=== PATIENT | female | born 1955 | race Caucasian/White ===

== ENCOUNTER 2019-08-10 11:47 | Outpatient (CLI) | payer OTHER, SELFPAY ==
[2019-08-10 12:22] LABS: Basophils Percent Auto 0.4 % (0.2-1.2); Eosinophils Absolute Auto 0.3 K/mm3 (0-0.3); Hematocrit 38.1 % (37.0-47.0); Hemoglobin 12.1 g/dL (12.0-15.0); Immature Granulocyte Absolute 0.01 K/mm3 (0.00-0.031); Immature Granulocyte Percent A 0.1 % (0-0.5); Lymphocytes Absolute Auto 2.04 K/mm3 (0.9-3.2); Lymphocytes Percent Auto 28.4 % (18.3-44.2); Mean Corpuscular HGB Conc 31.8 g/dl (32-36); Mean Corpuscular Hemoglobin 29.5 pg (26-34); Mean Corpuscular Volume 92.9 fl (80-100); Mean Platelet Volume 9.7 fl (7.4-10.4); Monocytes Absolute Auto 0.4 K/mm3 (0.1-0.6); Neutrophils Absolute Auto 4.4 K/mm3 (1.3-6.7); Neutrophils Percent Auto 61.1 % (45.5-73.1); Platelet Count Result 236 k/mm3 (150-375); Red Cell Distribution Width 13.2 % (11.5-14.5); White Blood Count 7.2 K/mm3 (4.5-10.0)
[2019-08-10 12:26] LABS: Blood Urea Nitrogen 15 mg/dL (8-26); Carbon Dioxide 29 mmol/L (22-30); Chloride 101 mmol/L (98-109); Estimated Glomerular Filt Rate > 60; Glucose 103 mg/dL (70-105); Potassium 4.1 mmol/L (3.5-4.9); Sodium 141 mmol/L (138-146)
[2019-08-10 13:01] LABS: Alanine Aminotransferase 11 U/L (4-35); Albumin Level 4.2 g/dL (3.5-5.1); Alkaline Phosphatase 63 U/L (38-126); Aspartate Amino Transferase 23 U/L (14-36); Bilirubin,Total 0.3 mg/dL (0.2-1.3); Blood Urea Nitrogen 15 mg/dL (7-17); Calcium 10.1 mg/dL (8.4-10.2); Carbon Dioxide 31 mmol/L (22-30); Chloride 103 mmol/L (98-107); Estimated Glomerular Filt Rate > 60; Glucose 100 mg/dL (65-105); Potassium 4.3 mmol/L (3.4-5.0); Sodium 137 mmol/L (137-145)
[2019-08-14 12:57] LABS: CA 27.29 18 U/mL (<38)
== END 2019-08-10 11:48 | disposition home or self-care (01) ==
LOC: ANHLAB 11:50
PROVIDERS: PCP Internal Medicine; Visit Provider Internal Medicine Hematology & Oncology
DX: C50.911 Malignant neoplasm of unspecified site of right female breast (principal); Z17.1 Estrogen receptor negative status [ER-]
CPT/HCPCS: 36415; 80048; 80053; 85025; 86300

== ENCOUNTER 2020-02-01 14:37 | Outpatient (CLI) | payer OTHER, SELFPAY ==
--- NOTE | ~2020-02-01 | MM_ITS ---
EXAMINATION: MM screening jonah LT w sheila HISTORY: Screening left mammogram, history of right mastectomy TECHNIQUE: Craniocaudal and mediolateral oblique 3-D tomosynthesis images were obtained and synthetic 2-D images were generated. CAD analysis was submitted and interpreted. COMPARISON: 01/30/2019, 01/28/2018, 01/22/2017 BREAST PARENCHYMAL COMPOSITION: The breasts are almost entirely fatty. FINDINGS: There is no evidence of suspicious mass, calcification, or architectural distortion to sugg est malignancy. There has been no suspicious interval change. IMPRESSION: 1. No mammographic evidence of malignancy. 2. Recommend routine screening mammography in one year. BI-RADS Category 1: Negative Reviewed, dictated and finalized at location A.
== END 2020-02-01 14:38 | disposition home or self-care (01) ==
LOC: ANHIMG 14:43
PROVIDERS: PCP Internal Medicine; Visit Provider Internal Medicine Hematology & Oncology
DX: Z12.31 Encounter for screening mammogram for malignant neoplasm of breast (principal)
CPT/HCPCS: 77063; 77067

== ENCOUNTER 2020-02-27 13:20 | Outpatient (CLI) | payer OTHER, SELFPAY ==
[2020-02-27 13:42] LABS: Basophils Absolute Auto 0.1 K/mm3 (0.0-0.1); Basophils Percent Auto 0.6 % (0.2-1.2); Eosinophils Absolute Auto 0.2 K/mm3 (0-0.3); Eosinophils Percent Auto 2.1 % (0-4.4); Hematocrit 36.3 % (37.0-47.0); Hemoglobin 11.4 g/dL (12.0-15.0); Immature Granulocyte Absolute 0.02 K/mm3 (0.00-0.031); Immature Granulocyte Percent A 0.2 % (0-0.5); Lymphocytes Absolute Auto 1.95 K/mm3 (0.9-3.2); Lymphocytes Percent Auto 23.6 % (18.3-44.2); Mean Corpuscular HGB Conc 31.4 g/dl (32-36); Mean Corpuscular Hemoglobin 30.3 pg (26-34); Mean Corpuscular Volume 96.5 fl (80-100); Mean Platelet Volume 9.4 fl (7.4-10.4); Monocytes Absolute Auto 0.4 K/mm3 (0.1-0.6); Monocytes Percent Auto 4.7 % (2.6-8.5); Neutrophils Absolute Auto 5.7 K/mm3 (1.3-6.7); Neutrophils Percent Auto 68.8 % (45.5-73.1); Platelet Count Result 251 k/mm3 (150-375); Red Blood Count 3.76 M/mm3 (4.2-5.4); Red Cell Distribution Width 12.9 % (11.5-14.5); White Blood Count 8.3 K/mm3 (4.5-10.0)
[2020-02-27 13:45] LABS: Blood Urea Nitrogen 22 mg/dL (8-26); Carbon Dioxide 28 mmol/L (22-30); Chloride 107 mmol/L (98-109); Estimated Glomerular Filt Rate 50; Glucose 105 mg/dL (70-105); Potassium 4.4 mmol/L (3.5-4.9); Sodium 142 mmol/L (138-146)
[2020-02-27 16:44] LABS: Alanine Aminotransferase 13 U/L (4-35); Alkaline Phosphatase 68 U/L (38-126); Anion Gap 5 mmol/L (8-16); Aspartate Amino Transferase 24 U/L (14-36); Bilirubin,Total 0.3 mg/dL (0.2-1.3); Blood Urea Nitrogen 24 mg/dL (7-17); Calcium 9.5 mg/dL (8.4-10.2); Carbon Dioxide 32 mmol/L (22-30); Chloride 105 mmol/L (98-107); Estimated Glomerular Filt Rate > 60; Glucose 108 mg/dL (65-105); Potassium 4.6 mmol/L (3.4-5.0); Sodium 142 mmol/L (137-145)
== END 2020-02-27 13:21 | disposition home or self-care (01) ==
LOC: ANHLAB 13:21
PROVIDERS: PCP Internal Medicine; Visit Provider Internal Medicine Hematology & Oncology
DX: C50.911 Malignant neoplasm of unspecified site of right female breast (principal); Z17.1 Estrogen receptor negative status [ER-]
CPT/HCPCS: 36415; 80048; 80053; 85025

== ENCOUNTER 2020-04-09 15:57 | Emergency (ER) | payer OTHER, SELFPAY ==
--- NOTE | ~2020-04-09 | XR_ITS ---
EXAMINATION: XR soft tissue neck EXAM DATE: 04/09/2020 17:04 INDICATION: Intermittent foreign body sensation to rt side of throat. TECHNIQUE: Frontal and lateral projections of the neck soft tissue. There is no prior study for com leeon. FINDINGS: Epiglottis is normal in thickness, the airway is unremarkable. No radiopaque foreign sylvia s identified. Thyroid cartilage calcification. Mild right carotid bulb calcification. Aortic arch art erial sclerosis. Pacemaker/AICD leads. Lung apices are clear. There is moderate cervical spondylosis. IMPRESSION: No radiopaque foreign bodies identified. Arterial sclerosis. Reviewed, dictated and finalized at location A. TFED PRESS OPERATOR
[2020-04-09 16:28] VITALS: BP 161/72; PULSE 80; RESP 16; TEMP 36.6; O2SAT 98
--- NOTE | 2020-04-09 16:55 | ED.GENADULT ---
HPI - General Adult General Chief complaint: Unspecified Stated complaint: Sore throat Time Seen by Provider: 04/09/20 16:36 Source: patient and RN notes reviewed Mode of arrival: ambulatory Limitations: no limitations History of Present Illness HPI narrative: Patient presents today complaining of an intermittent foreign body sensation to the right side of her throat x2 to 3 weeks. Denies pain, recent illness, cough, frequent clearing of her throat. States she has seen her doctor for this complaint and was told to take Mucinex and use Flonase. She also increased her water intake. States when she drinks a lot of water the symptoms resolve, but then return sometime later. At times she believes that this is due to congestion in her throat, but she comes to urgent care today because interventions instructed by her doctor were not really helping. She does have history of GERD and was recently instructed to increase her Pepcid from daily to twice daily, which also did not help with her symptoms. History of tonsillectomy. No history of thyroid issues. Denies shortness of breath or difficulty swallowing. MD complaint: FB sensation of throat Related Data Home Medications Medication Instructions Recorded Confirmed albuterol sulfate INHALATION 04/09/20 alendronate mg PO 04/09/20 atorvastatin 04/09/20 carvedilol 04/09/20 famotidine 04/09/20 sacubitril-valsartan [Entresto] 04/09/20 Allergies Allergy/AdvReac Type Severity Reaction Status Date / Time No Known Allergies Allergy Unverified 01/25/15 14:58 Review of Systems Review of Systems: Narrative: CONSTITUTIONAL: Denies body aches, fever, chills, or sweats. EYES: Denies visual changes, redness, or discharge. ENT: Denies rhinorrhea, congestion, sore throat, or otalgia. Throat foreign body sensation CARDIOVASCULAR: Denies chest pain, palpitations, or edema. RESPIRATORY: Denies cough or dyspnea. GASTROINTESTINAL: Denies abdominal pain, nausea, vomiting, or diarrhea. GENITOURINARY: Denies dysuria or hematuria. SKIN: Denies rash, itching, or wounds. MUSCULOSKELETAL: Denies back pain, joint pain, or myalgia. NEUROLOGIC: Denies headache, numbness, tingling, or weakness. PSYCH: Denies depression or anxiety. [facility] Past Medical History Medical History (Updated 04/09/20 @ 17:25 by Donna Painter, [facility], ) Congestive heart failure GERD (gastroesophageal reflux disease) Hypercholesterolemia Osteoporosis Family History Family History (Updated 11/01/15 @ 23:19 by DOCTOR UNKNOWN) Mother Hypertension Family history of diabetes mellitus in first degree relative Father Family history of diabetes mellitus in first degree relative Family history of coronary artery disease Other Family history of lung cancer Social History Social History Smoking end date: 04/05/09 Alcohol intake: current Comments At time of signature, I have reviewed and agree with nursing past medical, surgical, social and family history unless otherwise noted. Please see nursing chart for further information. There is no relevant family history pertinent to the presenting complaint Exam Narrative: Exam Narrative: GENERAL: Well-appearing, well-nourished, and in no acute distress. HEAD: Normocephalic, atraumatic. EYES: EOMI. No redness or drainage. Conjunctivae normal. ENT: Mucous membranes pink and moist. Nares clear. No rhinorrhea. TMs normal bilaterally. Throat normal. Moderate amount of thick postnasal drainage. Uvula midline. NECK: Normal AROM. Supple. No lymphadenopathy. Throat is nontender. Patient localizes foreign body sensation in the right tonsillar area CHEST: No respiratory distress. Clear to auscultation. HEART: Regular rate and rhythm. No murmur appreciated. Normal peripheral pulses. EXTREMITIES: Normal range of motion. No edema. SKIN: Warm, dry, no rash. Capillary refill normal. Normal skin turgor. NEURO: No focal deficits. Alert and oriented x3. Gait stea
== END 2020-04-09 17:28 | disposition home or self-care (01) ==
PROVIDERS: Emergency Provider Nurse Practitioner
DX: R09.89 Other specified symptoms and signs involving the circulatory and respiratory systems (principal); I11.0 Hypertensive heart disease with heart failure; I50.9 Heart failure, unspecified; K21.9 Gastro-esophageal reflux disease without esophagitis; E78.00 Pure hypercholesterolemia, unspecified; M81.0 Age-related osteoporosis without current pathological fracture; Z95.0 Presence of cardiac pacemaker
CPT/HCPCS: 70360; 99213; G0463

== ENCOUNTER 2020-08-22 14:40 | Outpatient (CLI) | payer OTHER, SELFPAY ==
[2020-08-22 14:59] LABS: Basophils Percent Auto 0.2 % (0.2-1.2); Eosinophils Percent Auto 0.2 % (0-4.4); Hematocrit 37.8 % (37.0-47.0); Hemoglobin 12.3 g/dL (12.0-15.0); Immature Granulocyte Absolute 0.03 K/mm3 (0.00-0.031); Immature Granulocyte Percent A 0.3 % (0-0.5); Lymphocytes Absolute Auto 1.49 K/mm3 (0.9-3.2); Lymphocytes Percent Auto 15.7 % (18.3-44.2); Mean Corpuscular HGB Conc 32.5 g/dl (32-36); Mean Corpuscular Hemoglobin 30.5 pg (26-34); Mean Corpuscular Volume 93.8 fl (80-100); Mean Platelet Volume 9.7 fl (7.4-10.4); Monocytes Absolute Auto 0.4 K/mm3 (0.1-0.6); Monocytes Percent Auto 3.8 % (2.6-8.5); Neutrophils Absolute Auto 7.6 K/mm3 (1.3-6.7); Neutrophils Percent Auto 79.8 % (45.5-73.1); Platelet Count Result 230 k/mm3 (150-375); Red Blood Count 4.03 M/mm3 (4.2-5.4); Red Cell Distribution Width 12.7 % (11.5-14.5); White Blood Count 9.5 K/mm3 (4.5-10.0)
[2020-08-22 17:25] LABS: Alanine Aminotransferase 12 U/L (4-35); Albumin Level 4.3 g/dL (3.5-5.1); Alkaline Phosphatase 63 U/L (38-126); Anion Gap 8 mmol/L (8-16); Aspartate Amino Transferase 24 U/L (14-36); Bilirubin,Total 0.3 mg/dL (0.2-1.3); Calcium 10.1 mg/dL (8.4-10.2); Carbon Dioxide 26 mmol/L (22-30); Chloride 105 mmol/L (98-107); Estimated Glomerular Filt Rate > 60; Glucose 109 mg/dL (65-105); Potassium 4.2 mmol/L (3.4-5.0); Sodium 139 mmol/L (137-145)
[2020-08-22 17:40] LABS: Blood Urea Nitrogen 21 mg/dL (7-17)
[2020-08-25 07:16] LABS: CA 15-3 13 U/mL (<32)
== END 2020-08-22 14:41 | disposition home or self-care (01) ==
LOC: ANHLAB 14:46
PROVIDERS: Visit Provider Internal Medicine Hematology & Oncology
DX: C50.911 Malignant neoplasm of unspecified site of right female breast (principal); Z17.1 Estrogen receptor negative status [ER-]
CPT/HCPCS: 36415; 80053; 85025; 86300

== ENCOUNTER 2021-02-03 09:19 | Outpatient (CLI) | payer OTHER, SELFPAY ==
--- NOTE | ~2021-02-03 | MM_ITS ---
EXAMINATION: MM screening jonah LT w sheila HISTORY: Screening TECHNIQUE: Craniocaudal and mediolateral oblique 3-D tomosynthesis images were obtained and synthetic 2-D images were generated. CAD analysis was submitted and interpreted. COMPARISON: Comparison to multiple prior studies sequentially, with oldest reviewed study dated 04/2014. BREAST PARENCHYMAL COMPOSITION: There are scattered areas of fibroglandular density. FINDINGS: There is a battery pack overlying the left breast, likely pacemaker. There is no evidence o f suspicious mass, calcification, or architectural distortion to suggest malignancy in the left breas t. There has been no suspicious interval change. IMPRESSION: 1. No mammographic evidence of malignancy. 2. Recommend routine screening mammography in one year. BI-RADS Category 1: Negative Reviewed, dictated and finalized at location A.
== END 2021-02-03 09:20 | disposition home or self-care (01) ==
LOC: ANHIMG 09:21
PROVIDERS: PCP Internal Medicine; Visit Provider Internal Medicine Hematology & Oncology
DX: Z12.31 Encounter for screening mammogram for malignant neoplasm of breast (principal)
CPT/HCPCS: 77063; 77067

== ENCOUNTER 2021-02-24 10:04 | Outpatient (CLI) | payer OTHER, SELFPAY ==
[2021-02-24 10:35] LABS: Basophils Percent Auto 0.5 % (0.2-1.2); Eosinophils Absolute Auto 0.2 K/mm3 (0-0.3); Eosinophils Percent Auto 2.8 % (0-4.4); Hematocrit 37.1 % (37.0-47.0); Hemoglobin 11.9 g/dL (12.0-15.0); Immature Granulocyte Absolute 0.02 K/mm3 (0.00-0.031); Immature Granulocyte Percent A 0.3 % (0-0.5); Lymphocytes Absolute Auto 1.54 K/mm3 (0.9-3.2); Lymphocytes Percent Auto 26.5 % (18.3-44.2); Mean Corpuscular HGB Conc 32.1 g/dl (32-36); Mean Corpuscular Hemoglobin 30.5 pg (26-34); Mean Corpuscular Volume 95.1 fl (80-100); Mean Platelet Volume 9.5 fl (7.4-10.4); Monocytes Absolute Auto 0.4 K/mm3 (0.1-0.6); Neutrophils Absolute Auto 3.7 K/mm3 (1.3-6.7); Neutrophils Percent Auto 63.9 % (45.5-73.1); Platelet Count Result 221 k/mm3 (150-375); Red Cell Distribution Width 12.3 % (11.5-14.5); White Blood Count 5.8 K/mm3 (4.5-10.0)
[2021-02-24 16:46] LABS: Alanine Aminotransferase 14 U/L (4-35); Albumin Level 3.9 g/dL (3.5-5.1); Alkaline Phosphatase 70 U/L (38-126); Anion Gap 3 mmol/L (8-16); Aspartate Amino Transferase 23 U/L (14-36); Bilirubin,Total 0.4 mg/dL (0.2-1.3); Blood Urea Nitrogen 15 mg/dL (7-17); Calcium 9.5 mg/dL (8.4-10.2); Carbon Dioxide 29 mmol/L (22-30); Chloride 103 mmol/L (98-107); Estimated Glomerular Filt Rate > 60; Glucose 109 mg/dL (65-110); Sodium 135 mmol/L (137-145)
[2021-02-27 07:50] LABS: CA 15-3 13 U/mL (<32)
== END 2021-02-24 10:05 | disposition home or self-care (01) ==
PROVIDERS: PCP Internal Medicine; Visit Provider Internal Medicine Hematology & Oncology
DX: C50.911 Malignant neoplasm of unspecified site of right female breast (principal); Z17.1 Estrogen receptor negative status [ER-]
CPT/HCPCS: 36415; 80053; 85025; 86300

== ENCOUNTER 2021-10-20 13:03 | Outpatient (CLI) | payer OTHER, SELFPAY ==
[2021-10-20 13:25] LABS: Basophils Percent Auto 0.5 % (0.2-1.2); Eosinophils Absolute Auto 0.4 K/mm3 (0-0.3); Eosinophils Percent Auto 4.5 % (0-4.4); Hematocrit 38.3 % (37.0-47.0); Hemoglobin 11.9 g/dL (12.0-15.0); Immature Granulocyte Absolute 0.01 K/mm3 (0.00-0.031); Immature Granulocyte Percent A 0.1 % (0-0.5); Lymphocytes Absolute Auto 1.73 K/mm3 (0.9-3.2); Mean Corpuscular HGB Conc 31.1 g/dl (32-36); Mean Corpuscular Hemoglobin 30.3 pg (26-34); Mean Corpuscular Volume 97.5 fl (80-100); Mean Platelet Volume 10.3 fl (7.4-10.4); Monocytes Absolute Auto 0.5 K/mm3 (0.1-0.6); Monocytes Percent Auto 6.1 % (2.6-8.5); Neutrophils Absolute Auto 5.6 K/mm3 (1.3-6.7); Neutrophils Percent Auto 67.8 % (45.5-73.1); Platelet Count Result 243 k/mm3 (150-375); Red Blood Count 3.93 M/mm3 (4.2-5.4); Red Cell Distribution Width 12.1 % (11.5-14.5); White Blood Count 8.2 K/mm3 (4.5-10.0)
[2021-10-20 14:29] LABS: Alanine Aminotransferase 16 U/L (6-35); Albumin Level 3.9 g/dL (3.5-5.1); Alkaline Phosphatase 83 U/L (38-126); Anion Gap 5 mmol/L (8-16); Aspartate Amino Transferase 24 U/L (14-36); Bilirubin,Total 0.4 mg/dL (0.2-1.3); Blood Urea Nitrogen 12 mg/dL (7-17); Calcium 9.4 mg/dL (8.4-10.2); Carbon Dioxide 32 mmol/L (22-30); Chloride 103 mmol/L (98-107); Estimated Glomerular Filt Rate > 60; Glucose 114 mg/dL (65-110); Potassium 3.8 mmol/L (3.4-5.0); Sodium 140 mmol/L (137-145)
[2021-10-24 04:06] LABS: CA 15-3 15 U/mL (<32)
== END 2021-10-20 13:04 | disposition home or self-care (01) ==
LOC: ANHLAB 13:04
PROVIDERS: PCP Internal Medicine; Visit Provider Internal Medicine Hematology & Oncology
DX: C50.911 Malignant neoplasm of unspecified site of right female breast (principal); Z17.1 Estrogen receptor negative status [ER-]
CPT/HCPCS: 36415; 80053; 85025; 86300

== ENCOUNTER 2021-12-22 11:02 | Outpatient (CLI) | payer OTHER, SELFPAY ==
[2021-12-22 11:18] LABS: Basophils Percent Auto 0.6 % (0.2-1.2); Eosinophils Absolute Auto 0.2 K/mm3 (0-0.3); Hematocrit 40.1 % (37.0-47.0); Hemoglobin 12.6 g/dL (12.0-15.0); Immature Granulocyte Absolute 0.01 K/mm3 (0.00-0.031); Immature Granulocyte Percent A 0.1 % (0-0.5); Lymphocytes Absolute Auto 1.89 K/mm3 (0.9-3.2); Lymphocytes Percent Auto 26.6 % (18.3-44.2); Mean Corpuscular HGB Conc 31.4 g/dl (32-36); Mean Corpuscular Hemoglobin 30.4 pg (26-34); Mean Corpuscular Volume 96.9 fl (80-100); Mean Platelet Volume 10.4 fl (7.4-10.4); Monocytes Absolute Auto 0.4 K/mm3 (0.1-0.6); Monocytes Percent Auto 6.1 % (2.6-8.5); Neutrophils Absolute Auto 4.5 K/mm3 (1.3-6.7); Neutrophils Percent Auto 63.6 % (45.5-73.1); Platelet Count Result 233 k/mm3 (150-375); Red Blood Count 4.14 M/mm3 (4.2-5.4); Red Cell Distribution Width 12.6 % (11.5-14.5); White Blood Count 7.1 K/mm3 (4.5-10.0)
[2021-12-22 12:19] LABS: Alanine Aminotransferase 15 U/L (6-35); Albumin Level 4.3 g/dL (3.5-5.1); Alkaline Phosphatase 87 U/L (38-126); Anion Gap 11 mmol/L (8-16); Aspartate Amino Transferase 23 U/L (14-36); Bilirubin,Total 0.3 mg/dL (0.2-1.3); Blood Urea Nitrogen 17 mg/dL (7-17); Calcium 9.4 mg/dL (8.4-10.2); Carbon Dioxide 29 mmol/L (22-30); Chloride 101 mmol/L (98-107); Estimated Glomerular Filt Rate > 60; Glucose 120 mg/dL (65-110); Sodium 141 mmol/L (137-145)
[2021-12-24 19:41] LABS: CA 15-3 14 U/mL (<32)
== END 2021-12-22 11:03 | disposition home or self-care (01) ==
LOC: ANHLAB 11:03
PROVIDERS: PCP Internal Medicine; Visit Provider Internal Medicine Hematology & Oncology
DX: C50.911 Malignant neoplasm of unspecified site of right female breast (principal); Z17.1 Estrogen receptor negative status [ER-]
CPT/HCPCS: 36415; 80053; 85025; 86300

== ENCOUNTER 2022-03-05 08:49 | Outpatient (CLI) | payer OTHER, SELFPAY ==
--- NOTE | ~2022-03-05 | MM_ITS ---
EXAMINATION: MM screening jonah LT w sheila HISTORY: Screening left mammogram, history of right mastectomy TECHNIQUE: Craniocaudal and mediolateral oblique 3-D tomosynthesis images were obtained and synthetic 2-D images were generated. CAD analysis was submitted and interpreted. COMPARISON: 02/03/2021, 02/01/2020, 01/30/2019 BREAST PARENCHYMAL COMPOSITION: There are scattered areas of fibroglandular density. FINDINGS: Two No suspicious mass, calcification, or architectural distortion are identified in either breast to suggest malignancy. There has been no suspicious interval change. IMPRESSION: 1. No mammographic evidence of malignancy. 2. Recommend routine screening mammography in one year. BI-RADS Category 1: Negative Reviewed, dictated and finalized at location A. E SCIENTIST
== END 2022-03-05 08:50 | disposition home or self-care (01) ==
LOC: ANHIMG 08:52
PROVIDERS: PCP Internal Medicine; Visit Provider Internal Medicine Hematology & Oncology
DX: Z12.31 Encounter for screening mammogram for malignant neoplasm of breast (principal)
CPT/HCPCS: 77063; 77067

== ENCOUNTER 2022-12-22 11:31 | Outpatient (CLI) | payer OTHER, SELFPAY ==
[2022-12-22 11:45] LABS: Basophils Percent Auto 0.6 % (0.2-1.2); Eosinophils Absolute Auto 0.1 K/mm3 (0-0.3); Eosinophils Percent Auto 2.1 % (0-4.4); Hematocrit 39.8 % (37.0-47.0); Hemoglobin 12.4 g/dL (12.0-15.0); Immature Granulocyte Absolute 0.01 K/mm3 (0.00-0.031); Immature Granulocyte Percent A 0.2 % (0-0.5); Lymphocytes Absolute Auto 1.38 K/mm3 (0.9-3.2); Lymphocytes Percent Auto 20.8 % (18.3-44.2); Mean Corpuscular HGB Conc 31.2 g/dl (32-36); Mean Corpuscular Hemoglobin 30.6 pg (26-34); Mean Corpuscular Volume 98.3 fl (80-100); Mean Platelet Volume 9.6 fl (7.4-10.4); Monocytes Absolute Auto 0.4 K/mm3 (0.1-0.6); Monocytes Percent Auto 6.6 % (2.6-8.5); Neutrophils Absolute Auto 4.6 K/mm3 (1.3-6.7); Neutrophils Percent Auto 69.7 % (45.5-73.1); Platelet Count Result 242 k/mm3 (150-375); Red Blood Count 4.05 M/mm3 (4.2-5.4); Red Cell Distribution Width 12.5 % (11.5-14.5); White Blood Count 6.6 K/mm3 (4.5-10.0)
[2022-12-22 12:29] LABS: Alanine Aminotransferase 17 U/L (6-35); Albumin Level 4.4 g/dL (3.5-5.1); Alkaline Phosphatase 68 U/L (38-126); Anion Gap 6 mmol/L (8-16); Aspartate Amino Transferase 23 U/L (14-36); Bilirubin,Total 0.5 mg/dL (0.2-1.3); Blood Urea Nitrogen 31 mg/dL (7-17); Calcium 9.6 mg/dL (8.4-10.2); Carbon Dioxide 30 mmol/L (22-30); Chloride 102 mmol/L (98-107); Estimated Glomerular Filt Rate 55; Glucose 93 mg/dL (65-110); Potassium 4.5 mmol/L (3.4-5.0); Sodium 138 mmol/L (137-145)
[2022-12-28 15:25] LABS: CA 15-3 16 U/mL (<32)
== END 2022-12-22 11:32 | disposition home or self-care (01) ==
LOC: ANHLAB 11:33
PROVIDERS: PCP Internal Medicine; Visit Provider Internal Medicine Hematology & Oncology
DX: C50.911 Malignant neoplasm of unspecified site of right female breast (principal); Z17.1 Estrogen receptor negative status [ER-]
CPT/HCPCS: 36415; 80053; 85025; 86300

== ENCOUNTER 2023-04-22 08:28 | Outpatient (CLI) | payer OTHER, SELFPAY ==
--- NOTE | ~2023-04-22 | MM_ITS ---
EXAMINATION: MM screening jonah LT w sheila HISTORY: Screening TECHNIQUE: Craniocaudal and mediolateral oblique 3-D tomosynthesis images were obtained and synthetic 2-D images were generated. CAD analysis was submitted and interpreted. COMPARISON: Comparison to multiple prior studies sequentially, with oldest reviewed study dated 01/04. BREAST PARENCHYMAL COMPOSITION: Breast composed of scattered areas of fibroglandular density FINDINGS: There is no evidence of suspicious mass, calcification, or architectural distortion to sugg est malignancy in either breast. There has been no suspicious interval change. IMPRESSION: 1. No mammographic evidence of malignancy. 2. Recommend routine screening mammography in one year. BI-RADS Category 1: Negative Reviewed, dictated and finalized at location A. ER IN [facility]
== END 2023-04-22 08:29 | disposition home or self-care (01) ==
PROVIDERS: PCP Internal Medicine; Visit Provider Internal Medicine Hematology & Oncology
DX: Z12.31 Encounter for screening mammogram for malignant neoplasm of breast (principal)
CPT/HCPCS: 77063; 77067

== ENCOUNTER 2023-12-27 13:39 | Outpatient (CLI) | payer OTHER, SELFPAY ==
[2023-12-27 13:55] LABS: Basophils Percent Auto 0.3 % (0.2-1.2); Eosinophils Absolute Auto 0.2 K/mm3 (0-0.3); Eosinophils Percent Auto 2.2 % (0-4.4); Hematocrit 37.5 % (37.0-47.0); Hemoglobin 11.6 g/dL (12.0-15.0); Immature Granulocyte Absolute 0.01 K/mm3 (0.00-0.031); Immature Granulocyte Percent A 0.1 % (0-0.5); Lymphocytes Absolute Auto 1.69 K/mm3 (0.9-3.2); Lymphocytes Percent Auto 22.1 % (18.3-44.2); Mean Corpuscular HGB Conc 30.9 g/dl (32-36); Mean Corpuscular Hemoglobin 30.6 pg (26-34); Mean Corpuscular Volume 98.9 fl (80-100); Mean Platelet Volume 9.6 fl (7.4-10.4); Monocytes Absolute Auto 0.5 K/mm3 (0.1-0.6); Monocytes Percent Auto 6.4 % (2.6-8.5); Neutrophils Absolute Auto 5.3 K/mm3 (1.3-6.7); Neutrophils Percent Auto 68.9 % (45.5-73.1); Platelet Count Result 216 k/mm3 (150-375); Red Blood Count 3.79 M/mm3 (4.2-5.4); Red Cell Distribution Width 12.6 % (11.5-14.5); White Blood Count 7.6 K/mm3 (4.5-10.0)
[2023-12-27 16:47] LABS: Alanine Aminotransferase 13 U/L (6-35); Albumin Level 3.9 g/dL (3.5-5.1); Alkaline Phosphatase 74 U/L (38-126); Anion Gap 7 mmol/L (4-12); Aspartate Amino Transferase 22 U/L (14-36); Bilirubin,Total 0.2 mg/dL (0.2-1.3); Blood Urea Nitrogen 20 mg/dL (7-17); Calcium 9.7 mg/dL (8.4-10.2); Carbon Dioxide 29 mmol/L (22-30); Chloride 104 mmol/L (98-107); Estimated Glomerular Filt Rate > 60; Glucose 105 mg/dL (65-110); Potassium 4.1 mmol/L (3.4-5.0); Sodium 140 mmol/L (137-145)
[2023-12-29 03:24] LABS: CA 15-3 15 U/mL (<32)
== END 2023-12-27 13:40 | disposition home or self-care (01) ==
LOC: ANHLAB 13:40
PROVIDERS: PCP Internal Medicine; Visit Provider Internal Medicine Hematology & Oncology
DX: C50.911 Malignant neoplasm of unspecified site of right female breast (principal); Z17.1 Estrogen receptor negative status [ER-]
CPT/HCPCS: 36415; 80053; 85025; 86300

== ENCOUNTER 2024-05-18 09:53 | Outpatient (CLI) | payer OTHER, SELFPAY ==
--- NOTE | ~2024-05-18 | MM_ITS ---
EXAMINATION: MM screening jonah BI w sheila HISTORY: Screening. Status post right mastectomy for breast cancer. TECHNIQUE: Craniocaudal and mediolateral oblique 3-D tomosynthesis images were obtained and synthetic 2-D images were generated. CAD analysis was submitted and interpreted. COMPARISON: Comparison to multiple prior studies sequentially, with oldest reviewed study dated 01/04. BREAST PARENCHYMAL COMPOSITION: Not dense: There are scattered areas of fibroglandular density. FINDINGS: There is no evidence of suspicious mass, calcification, or architectural distortion to sugg est malignancy in the left breast. There has been no suspicious interval change. IMPRESSION: 1. No mammographic evidence of malignancy. 2. Recommend routine screening mammography in one year. BI-RADS Category 1: Negative Reviewed, dictated and finalized at location [] BILL OPERATOR
--- OUTSIDE RECORDS SUMMARY | 2024-05-18 10:17 | XMS_ITS | Encounter Summary ---
Author Organization [facility] Care Team Providers Care Health Informatics Advisor Name Role Phone Naila Person DO Primary Care Provider [phone] Sania Lopez DO Unavailable [phone] Sultan Antwan Rudd MD Unavailable [phone] Sultan Antwan Rudd MD Unavailable [phone] Mark Pierre MD Unavailable [phone] Encounter Details Date Type Department Care Team (Latest Contact Info) Description 12/28/2015 Orders Only [facility]INCON[facility] ProviderAmy MD [address] [place] [id number] Social History Tobacco Use Types Packs/Day Years Used Date Smoking Tobacco: Never Assessed Comments Unknown Sex and Gender Information Value Date Recorded Sex Assigned at Not on file 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 [facility] Provider Final Res ult * CARDIOLOGY REPORT (01/08/2016 12:00 AM CDT) Anatomical Region Laterality Modality Other Narrative 01/08/2016 12:00 AM CDT Ordered by an unspecified provider. [facility] Provider CV CARDIAC SERVICES PROCE DURES Final Result * CARDIOLOGY REPORT (12/30/2015 12:00 AM CDT) Anatomical Region Laterality Modality Other Narrative 12/30/2015 12:00 AM CDT Ordered by an unspecified provider. [facility] Provider CV CARDIAC SERVICES PROCE DURES Final Result * CARDIOLOGY REPORT (12/30/2015 12:00 AM CDT) Anatomical Region Laterality Modality Other Narrative 12/30/2015 12:00 AM CDT Ordered by an unspecified provider. 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 [address] [place] [address] [address] Structural Engineering Technician Cardiovascular Disease 11/10/18 11/10/18 Sultan Antwan Rudd MD [address] [facility] [address] [place] [address] [address] Structural Engineering Technician Cardiovascular Disease 11/15/18 Mark Pierre MD [address] [facility] [address] [place] [address] [address] Medical Oncologist/Accreditation Manager Medical Oncology 03/08/19 documented as of this encounter
--- OUTSIDE RECORDS SUMMARY | 2024-05-18 10:17 | XMS_ITS | Referral Summary ---
Author Organization [facility] Address [address] [place] [address] Care Team Providers Care Administrative Program Specialist Name Role Phone Naila Person DO Primary Care Provider [phone] Sania Lopez DO Unavailable [phone] Sultan Antwan Rudd MD Unavailable [phone] Mark Pierre MD Unavailable [phone] Encounters Date Type Department Care Team Description 05/15/2024 9:55 AM GARDE MANAGER Lab [facility] Lab [address] [place] [address] Hyperlipidemia, unspecified hyperlipidemia type 05/15/2024 11:00 AM GARDE MANAGER Office Visit [facility] Hand Surgery [address] [facility] [address] [place] [phone] Joseph Troy MD Right carpal tunnel syndrome (Primary Dx) 05/12/2024 7:30 AM GARDE MANAGER Ancillary Procedure [facility] Cardiology [address] [facility] [address] [place] [phone] Dilated cardiomyopathy (CMS/HCC) (HCC); LBBB (left bundle branch block); Cardiac resynchronization therapy defibrillator (AGENTS' RECORDS CLERK-D) in place 05/08/2024 Telephone [facility] Orthopedics and Sports Medicine [address] [facility] [address] [place] [address] Joseph Troy MD work note 05/02/2024 8:00 AM GARDE MANAGER - 05/02/2024 8:30 AM GARDE MANAGER Surgery [facility] OR [address] [place] [phone] Joseph Troy MD RIGHT CARPAL TUNNEL RELEASE 05/02/2024 5:46 AM GARDE MANAGER - 05/02/2024 8:40 AM GARDE MANAGER Hospital Encounter [facility] OR [address] [place] [phone] Joseph Troy MD Right carpal tunnel syndrome [G56.01] (Primary Dx) Discharge Disposition: Discharge to home or self care 04/27/2024 Telephone [facility] Cardiology [address] [place] [phone] Sultan Antwan Rudd MD 04/26/2024 Telephone [facility] Hand Surgery [facility] [address] [place] [address] Joseph Troy MD 04/19/2024 12:20 PM GARDE MANAGER Ancillary Procedure [facility] Hand Surgery [address] [place] [address] [place] [phone] 04/19/2024 12:30 PM GARDE MANAGER Office Visit [facility] Hand Surgery [address] [place] [phone] Joseph Troy MD Right hand pain (Primary Dx); Right carpal tunnel syndrome 03/13/2024 10:30 AM GARDE MANAGER Office Visit [facility] Cardiology [address] [place] [phone] Sultan Antwan Rudd MD Nonrheumatic aortic valve stenosis (Primary Dx); Ventricular premature depolarization 02/23/2024 Orders Only [facility] Cardiology [address] [place] [phone] Provider, MD Amy from Last 3 Months Allergies Active Allergy Reactions Criticality Noted Date Comments Nut Flavor Anaphylaxis High 03/24/2018 Peanut Anaphylaxis High 09/15/2018 Medications aspirin 81 mg enteric coated tabletIndications :heart health Take 1 tablet (81 mg total) by mouth diabetes education coordinator before breakfast 03/24/20 16 Active calcium carbonate-vitamin D3 600 mg calcium- 200 unit capsuleIndication s:Hypocalcemia Prevention Take 1 capsule by mouth nightly 03/24/20 16 Active atorvastatin (LIPITOR) 20 mg tabletIndications :hyperlipidemia Take 1 tablet (20 mg total) by mouth nightly 02/05/20 18 Active furosemide (LASIX) 40 mg tabletIndications :Edema Take 1 tablet (40 mg total) by mouth diabetes education coordinator before breakfast Active famotidine (PEPCID) 40 mg tabletIndications :gastroesophageal reflux disease Take 1 tablet (40 mg total) by mouth diabetes education coordinator before breakfast Active magnesium gluconate 200 mg tabletIndications :hypomagnesemia Take 1 tablet (200 mg total) by mouth diabetes education coordinator before breakfast Active cod liver oil capsule Take 1 capsule by mouth diabetes education coordinator before breakfast Active garlic 1,000 mg capsule Take 1 capsule by mouth nightly Active alendronate (FOSAMAX) 70 mg tabletIndications :Post-Menopausal Osteoporosis Take 1 tablet (70 mg total) by mouth every 7 days 06/04/19 20 Active albuterol HFA (PROVENTIL HFA,VENTOLIN HFA,PROAIR HFA) 90 mcg/actuation inhaler Inhale 1 puff as needed for shortness of breath 10/28/19 20 Active cyanocobalamin (Vitamin B-12) 100 mcg tabletIndications :Prevention of Vitamin B12 Deficiency Take 1 tablet (100 mcg total) by mouth nightly Active ferrous sulfate 325 mg (65 mg of elemental iron) tabletIndications :Iron Deficiency Anemia Take 1 tablet (325 mg total) by mouth diabetes education coordinator before breakfast Active zinc 50 mg tabletIndications :Zinc Deficiency Take 1 tablet by mouth nightly Active traZODone (DESYREL) 100 mg tabletIndications :insomnia associated with depression Take 1 tablet (100 mg total) by mouth nightly 06/25/19 23 Active sacubitriL-valsar berg (Entresto) 49-51 mg tablet TAKE 1 TABLET BY MOUTH TWICE A DAY 180 tablet 2 07/19/19 24 Active spironolactone (ALDACTONE) 25 mg tabletIndications :Dilated cardiomyopathy (CMS/HCC) (HCC) TAKE 1 TABLET (25 MG TOTAL) BY MOUTH DAILY. 90 tablet 3 05/01/20 24 025 Active methylPREDNISolon e (MEDROL DOSEPACK) 4 mg Dosepack TAKE 6 TABLETS ON DAY 1 DIRECTED ON PACKAGE AND DECREASE BY 1 TAB EACH DAY FOR A TOTAL OF 6 DAYS 11/15/19 24 Active ALPRAZolam (XANAX) 0.5 mg tablet Take 1 tablet (0.5 mg total) by mouth nightly as needed (dentist appt) 01/12/20 23 Active carvediloL (COREG) 25 mg tabletIndications :Ventricular premature depolarization,PV Cs (premature ventricular contractions),Dil ated cardiomyopathy (CMS/HCC) (HCC) TAKE 1 TABLET BY MOUTH TWICE A DAY 180 tablet 1 05/17/19 25 Active carvediloL (COREG) 25 mg tabletIndications :Ventricular premature depolarization,PV Cs (premature ventricular contractions),Dil ated cardiomyopathy (CMS/HCC) (HCC) TAKE 1 TABLET BY MOUTH TWICE A DAY 180 tablet 1 11/25/19 24 025 Discontinued Active Problems Problem Noted Date Diagnosed Date Anxiety 04/21/2024 Biventricular automatic impl antable cardioverter defibrillator in situ 04/21/2024 PVC (premature ventricular contraction) 07/21/19 23 Assessment & Plan (11/24/2022 11:22 AM CDT): PVCs s/p PVC with site of origin along the inferomedial papillary muscle of the left ventricle - 07/20/2022 PVC burden decreased <1% post ablation She continues to feel well with increased energy and decreased SOB Dilated cardiomyopathy (CMS/HCC) 02/05/2022 Assessment & Plan (08/18/2022 3:30 PM CDT): NICM with associated HFrEF s/p AGENTS' RECORDS CLERK-D on 02/13/2020 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[employer] Pain in right hand 04/30/2021 Abdominal pain, RLQ 03/24/2021 Age-related osteoporosis wit hout current pathological fracture 03/24/2021 Atherosclerosis of aorta 03/24/2021 Chronic 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 (CMS/HCC) 03/24/2021 Cough 03/24/2021 Dysphagia 03/24/2021 Gastric reflux 03/24/2021 Gastro-esophageal reflux disease without esophag itis 03/24/2021 Hypertensive heart disease w ith congestive heart failure and chronic kidney disease (CMS/HCC) 03/24/2021 Lobar pneumonia (CMS/HCC) 03/24/2021 Morbid (severe) obesity due to excess calories 1 05/25/2020 Osteoarthritis of left hip 03/24/2021 Other specified postprocedural states 03/24/2021 Bilateral hand pain 03/24/2021 Pain in left knee 03/24/2021 Palpitations 03/24/2021 History of breast cancer 03/24/2021 Pulmonary hypertension secon valentina to raised pulmonary vascular resistance 03/24/2021 Hyperparathyroidism due to renal insufficiency 1 05/25/2020 Benign hypertensive renal disease 03/24/2021 Supraclavicular fossa fullness 03/24/2021 Ventricular premature depolarization 03/24/2021 Osteoarthritis of knees, bilateral 08/13/2020 Seasonal allergic rhinitis 08/13/2020 Diaphragmatic stimulation by cardiac pacemaker 1 05/22/2019 Assessment & Plan (06/27/2020 1:25 PM CDT): Resolved. Excellent LV thresholds. Assessment & Plan (03/21/2020 2:04 PM GARDE MANAGER): Factor change. Discussed in detail with patient. If makes matters worse come back if not for occasional episodes can change position Biventricular ICD (implantab le cardioverter-defibrillator) in place 02/21/2020 Assessment & Plan (11/24/2022 11:24 AM CDT): AGENTS' RECORDS CLERK-D is functioning appropriately as programmed Lead impedances, sensing, and thresholds are stable No programming changes Continue remote monitoring quarterly Follow up with Dr. Harris as scheduled and with us on an as needed basis Assessment & Plan (08/18/2022 3:31 PM CDT): Biventricular ICD is functioning appropriately as programmed Lead impedances, sensing, and thresholds are stable No programming changes Continue remote monitoring quarterly Cardiac resynchronization th erapy defibrillator (AGENTS' RECORDS CLERK-D) in place 02/20/2020 Assessment & Plan (06/27/2020 1:32 PM CDT): Check shows normal function. Underlying rhythm sinus left bundle-branch block. No a pacing 90 8% LV paced. Excellent lead function. Battery 12 years. No arrhythmias Assessment & Plan (05/28/2020 6:54 PM GARDE MANAGER): Inserted 02/13/2020. Assessment & Plan (03/21/2020 2:13 PM GARDE MANAGER): Normal function. Underlying rhythm sinus with left bundle-branch block. No a pacing 99% V paced. Excellent lead function. LV thresholds 0.5 volts at 0.4 milliseconds. Battery 12 years. No arrhythmias Assessment & Plan (02/20/2020 6:21 PM GARDE MANAGER): Inserted 02/13/2020. Assessment & Plan (02/20/2020 2:01 PM GARDE MANAGER): Medtronic implanted February 13, 2020. Good clinical response. Healing well. Headache 11/02/2019 History of surgery for cerebral aneurysm 020 Dyspnea 10/05/2019 Impacted cerumen, left ear 09/13/2019 Body mass index (BMI) 33.0-33.9, adult 0 Left carpal tunnel syndrome 06/07/2019 Right carpal tunnel syndrome 06/07/2019 Essential hypertension 02/08/2019 Assessment & Plan (09/26/2020 11:47 AM CDT): Salt restriction. Entresto. Carvedilol. Lasix. Blood pressure 122/70. Assessment & Plan (05/29/2020 4:39 PM GARDE MANAGER): Salt restriction. Carvedilol. Lasix. Entresto. Blood pressure 140/80. Assessment & Plan (03/21/2020 2:26 PM GARDE MANAGER): Blood pressure runs at home systolic 130 diastolic in the 80s or below Assessment & Plan (02/21/2020 3:40 PM GARDE MANAGER): Blood pressure 144/80. Salt restriction. Continue the current regimen. Assessment & Plan (12/20/2019 4:21 PM CDT): Blood pressure 108/62. Salt restriction. Continue the current regimen. Assessment & Plan (08/16/2019 2:30 PM CDT): Blood pressure 130/80. Continue the current regimen. Salt restriction. Assessment & Plan (05/24/2019 4:32 PM GARDE MANAGER): Blood pressure 112/70. Salt restriction. Continue the current regimen. Assessment & Plan (03/09/2019 9:08 AM GARDE MANAGER): Blood pressure 126/80. Salt restriction. Continue the current regimen. Assessment & Plan (02/08/2019 2:27 PM GARDE MANAGER): Blood pressure 128/74. Salt restriction. Continue the current regimen. Personal history of congestive heart failure 09/2018 Assessment & Plan (09/26/2020 11:47 AM CDT): Stable the treatment.. Salt restriction. Lasix for decongestion. Assessment & Plan (05/28/2020 7:02 PM GARDE MANAGER): Salt restriction. Blood pressure control. Lasix for decongestion. On 05/07/2020 BUN 19, creatinine 0.72, potassium 4.2, sodium 138. GFR more than 60. Stage 2 kidney disease. Assessment & Plan (02/20/2020 6:25 PM GARDE MANAGER): Salt restriction. Blood pressure control. Lasix for decongestion. On 02/13/2020, the potassium was 3.8, BUN 22, creatinine 0.9. GFR 81. Stage 2 kidney disease. Assessment & Plan (12/19/2019 5:44 PM CDT): Salt restriction. Blood pressure control. Lasix for decongestion. On 02/24/2019 the BNP was 186, BUN 16, creatinine 0.9, potassium 3.9. Assessment & Plan (08/15/2019 11:35 AM CDT): Salt restriction. Blood pressure control. Lasix for decongestion. On 02/24/2019 the BNP was 186, BUN 16, creatinine 0.9, potassium 3.9, sodium 142. Assessment & Plan (05/24/2019 10:55 AM GARDE MANAGER): Salt restriction. Blood pressure control. Lasix for decongestion. The BNP on 02/24/2019 was 186. BUN 16, creatinine 0.9, sodium 142, potassium 3.9. Assessment & Plan (03/08/2019 5:25 PM GARDE MANAGER): Was hospitalized at [facility] a few months back with congestive heart failure. Salt restriction. Blood pressure control. Lasix for decongestion. The BNP on 02/24/2019 was 186. Potassium 3.9, sodium 142, BUN 16, creatinine 0.9. Assessment & Plan (02/08/2019 2:30 PM GARDE MANAGER): Stable today. Salt restriction. Lasix for decongestion. Check SMA 7 and BNP level today. Left ventricular systolic dysfunction 11/16/2018 Assessment & Plan (11/24/2022 11:23 AM CDT): NICM with associated HFrEF s/p AGENTS' RECORDS CLERK-D Euvolemic on exam Assessment & Plan (09/25/2020 3:46 PM CDT): Biventricular pacemaker. Carvedilol. Entresto. Ejection fraction has improved as described above. Assessment & Plan (06/27/2020 1:26 PM CDT): Likely significantly better with AGENTS' RECORDS CLERK. Continue Entresto Assessment & Plan (05/29/2020 4:40 PM GARDE MANAGER): Worsening ejection fraction. Carvedilol. The lisinopril was changed to the Entresto. Follow up echo Doppler before the next appointment. Assessment & Plan (02/21/2020 3:41 PM GARDE MANAGER): Worsening ejection fraction. Carvedilol. Lisinopril was changed to the Entresto. Biventricular pacemaker insertion February 2020. Increase the dose of the Entresto 49-51 b.i.d.. Will check echo Doppler in a few months for follow-up of the left ventricular systolic function. Assessment & Plan (12/20/2019 4:23 PM CDT): On 11/09/2018 the echo showed an ejection fraction of 40-50%. Carvedilol. Lisinopril. Echo 12/06/2019 shows worsening of the left ventricular systolic function. Ejection fraction less than 30%. See above. Assessment & Plan (08/16/2019 2:29 PM CDT): On 11/09/2018 echo showed ejection fraction 40-50%. Escalating doses of the carvedilol and the lisinopril. She is going to call the current dose of the carvedilol from home. Assessment & Plan (05/24/2019 4:31 PM GARDE MANAGER): Echo 11/09/2018 showed an ejection fraction 40-50%. Escalating doses of the lisinopril and the carvedilol. Increase the dose of the carvedilol to 12.5 mg p.o. b.i.d.. Return 6 weeks and try to increase the dose of lisinopril at that appointment. Assessment & Plan (03/09/2019 9:09 AM GARDE MANAGER): Echo 11/09/2018 showed an ejection fraction of 40-50%. Carvedilol. Lisinopril. Will gradually escalate the doses. Increase the Coreg to 6.25 mg p.o. b.i.d. on this visit. Assessment & Plan (02/08/2019 2:29 PM GARDE MANAGER): Echo 11/09/2018 showed mild left ventricular systolic dysfunction ejection fraction 40-50%. Patient has left bundle branch block. Lisinopril. Carvedilol. Will gradually escalate the doses. Assessment & Plan (11/16/2018 3:47 PM CDT): Echo on 11/09/2018 showed mild left ventricular systolic dysfunction ejection fraction 40-50%. This is a new finding. The patient has chronic left bundle branch block. Will continue the current regimen. His left ventricular systolic dysfunction persists or worsens, will add beta-blockers and Roman inhibitors. Precordial chest pain 11/15/2018 Assessment & Plan (09/25/2020 3:48 PM CDT): Negative stress test 12/28/2015. Assessment & Plan (05/28/2020 7:03 PM GARDE MANAGER): Negative stress test 12/28/2015. Assessment & Plan (02/20/2020 6:25 PM GARDE MANAGER): Negative stress test 12/28/2015. Assessment & Plan (12/19/2019 5:46 PM CDT): Negative stress test 12/28/2015. Assessment & Plan (08/15/2019 11:33 AM CDT): Negative stress test 12/28/2015. Assessment & Plan (05/24/2019 10:54 AM GARDE MANAGER): Negative stress test 12/28/2015. Assessment & Plan (03/08/2019 5:21 PM GARDE MANAGER): Negative and stress test 12/28/2015. Assessment & Plan (02/07/2019 5:18 PM GARDE MANAGER): Negative Lexiscan stress test 12/28/2015. Assessment & Plan (11/15/2018 7:49 PM CDT): Negative Lexiscan stress test 12/28/2015. Lymphedema of right upper extremity 10/19/2018 Absence of right breast 03/24/2018 Epidermal cyst 03/24/2018 Estrogen receptor negative 03/24/2018 History of antineoplastic chemotherapy 8 Malignant neoplasm of axilla ry tail of right breast in female, estrogen receptor negative 11/25/2017 Cancer Staging:Clinical stage from 03/14/2018:Stage Unknown(cTX, cN1(f), cM0, G3, ER: Negative, AL: Negative, HER2: Negative) - Signed by Hever Drake MD on 03/14/2018 Pathologic:Stage Unknown(pTX) - Unsigned PVCs (premature ventricular contractions) 2015 Overview (2018): On the EKG. Assessment & Plan (08/18/2022 3:45 PM CDT): PVC s/p PVC ablation (PVC with site of origin along the inferomedial papillary muscle of the left ventricle) 07/20/2022 - Dr Gallardo She is doing very well post PVC ablation with increased energy and improvement in her exertional dyspnea Eliquis x 30 days post ablation, then d/c Will obtain 72 hour Holter monitor today to assess PVC burden Assessment & Plan (07/21/2022 10:21 AM CDT): Admitted for observation after EP procedure. Underwent successful PVC ablation without any apparent complications. - Start eliquis 5 mg BID, 30 day prescription at discharge - Monitor on tele -> NSR with infrequent PVCs - s/p one dose IV lasix 20 mg - Medtronic interrogated device and turned AGENTS' RECORDS CLERK pacing on - Continue home meds Assessment & Plan (09/25/2020 3:47 PM CDT): Asymptomatic PVCs on the EKG. Assessment & Plan (06/27/2020 1:27 PM CDT): [place] very low. No additional treatment needed Assessment & Plan (05/28/2020 7:03 PM GARDE MANAGER): Asymptomatic PVCs on the EKG. No palpitations. Assessment & Plan (03/21/2020 2:26 PM GARDE MANAGER): [place] low by check Assessment & Plan (02/20/2020 6:26 PM GARDE MANAGER): Asymptomatic PVCs on the EKG. No palpitations . Assessment & Plan (12/19/2019 5:46 PM CDT): Asymptomatic PVCs on the EKG. Not significant. Assessment & Plan (08/15/2019 11:31 AM CDT): Asymptomatic PVCs on the EKG. Not significant. Assessment & Plan (05/24/2019 10:54 AM GARDE MANAGER): Asymptomatic PVCs seen on the EKG. Assessment & Plan (03/08/2019 1:01 PM GARDE MANAGER): Asymptomatic PVCs seen on the EKG. Assessment & Plan (02/08/2019 2:26 PM GARDE MANAGER): PVCs on the EKG. Asymptomatic. EKG today shows normal sinus rhythm, left bundle-branch block, left axis deviation, left atrial abnormality. Assessment & Plan (11/15/2018 7:45 PM CDT): PVCs seen on the EKG. Asymptomatic. No heart skipping. Left bundle branch block 02/10/2016 Overview (06/27/2020): Chronic. Echo 1 year ago showed EF less than 30% Assessment & Plan (09/26/2020 11:42 AM CDT): Chronic left bundle branch block associated with cardiomyopathy. On 12/06/2019 there was worsening of the ejection fraction at less than 30%. Carvedilol. Entresto. Bi V pacemaker 02/13/2020. Echo 09/17/2020 showed an ejection fraction of 50-55%. Significant improvement. Assessment & Plan (06/27/2020 1:25 PM CDT): Treated with AGENTS' RECORDS CLERK Assessment & Plan (05/29/2020 4:40 PM GARDE MANAGER): Chronic left bundle branch block associated with cardiomyopathy. On 12/06/2019 the echo showed worsening of the ejection fraction less than 30%. Carvedilol. The lisinopril was changed to the Entresto. Underwent Bi V pacemaker insertion 02/13/2020. Repeat the echo Doppler before the next appointment. Assessment & Plan (03/21/2020 2:13 PM GARDE MANAGER): AGENTS' RECORDS CLERK 02/13/2020 Assessment & Plan (02/20/2020 6:21 PM GARDE MANAGER): Chronic left bundle branch block associated with cardiomyopathy. On 12/06/2019 the echo showed worsening of the left ventricular systolic function ejection fraction less than 30%. Carvedilol. The lisinopril was discontinued in the Entresto was started. Will gradually increase the dose. Underwent Bi V pacemaker insertion 02/13/2020. Assessment & Plan (02/05/2020 11:02 AM GARDE MANAGER): I spent a total of 30 Face to Face minutes of which more than 50% of the time was spent in counseling and coordination of care. This time included: AGENTS' RECORDS CLERK. Pacemakers versus defibrillators. Risk of implant not limited to bleeding infection pneumothorax. She is quite interested in having AGENTS' RECORDS CLERK and once a had a protection of ICD. Will schedule knee upcoming weeks Assessment & Plan (12/20/2019 4:22 PM CDT): Chronic left bundle branch block. Associated with cardiomyopathy. Ejection fraction on 11/09/2018 was 40-50%. Carvedilol. Lisinopril. On 12/06/2019 the echo showed severely impaired left ventricular systolic dysfunction ejection fraction less than 30%. Continue the carvedilol. Discontinue the lisinopril. Start Entresto 24-261 b.i.d. and will gradually increase the dose. Referred to Dr. Hodge for consideration of AICD/biventricular pacemaker. Assessment & Plan (08/15/2019 11:33 AM CDT): Chronic left bundle branch block. Associated with cardiomyopathy. Ejection fraction on 11/09/2018 was 40-50%. Carvedilol. Lisinopril. Assessment & Plan (05/24/2019 10:57 AM GARDE MANAGER): Chronic left bundle branch block. Associated with cardiomyopathy. Ejection fraction by echo on 11/09/2018 was 40-50%. Carvedilol. Lisinopril. Assessment & Plan (03/08/2019 1:03 PM GARDE MANAGER): Chronic left bundle branch block. Associated with cardiomyopathy. Echo Doppler 11/09/2018 showed an ejection fraction of 40-50%. Carvedilol. Lisinopril. Assessment & Plan (02/08/2019 2:28 PM GARDE MANAGER): Chronic. The echo Doppler 11/09/2018 showed mild left ventricular systolic dysfunction ejection fraction 40-50%. Carvedilol. Lisinopril. Assessment & Plan (11/16/2018 3:46 PM CDT): Chronic. Normal left ventricular systolic function previously. Mild left ventricular systolic dysfunction by echo on 11/09/2018 with ejection fraction of 40-50%. Nonrheumatic aortic valve stenosis 02/10/2016 Overview (2018): Mild Assessment & Plan (09/25/2020 3:47 PM CDT): Echo 09/17/2020 showed mild aortic valve stenosis.. Assessment & Plan (05/28/2020 7:00 PM GARDE MANAGER): Echo Doppler 12/06/2019 showed mild aortic valve stenosis with a peak gradient 23, mean gradient 12, aortic valve area 1.77 centimeter sq. No AR. Assessment & Plan (02/20/2020 6:24 PM GARDE MANAGER): Echo Doppler 12/06/2019 showed mild aortic valve stenosis with a peak gradient 23, mean gradient 12, aortic valve area 1.77 cm2. No aortic regurgitation Assessment & Plan (12/20/2019 4:24 PM CDT): Echo Doppler 11/09/2018 showed mild aortic valve stenosis. Echo Doppler 12/06/2019 shows a peak aortic valve gradient of 23, mean gradient 12, aortic valve area 1.77 cm2. Mild aortic valve stenosis. No aortic regurgitation. Assessment & Plan (08/15/2019 11:33 AM CDT): Echo Doppler 11/09/2018 showed mild aortic valve stenosis. Assessment & Plan (05/24/2019 10:56 AM GARDE MANAGER): Echo Doppler 11/09/2018 showed mild aortic valve stenosis. Assessment & Plan (03/08/2019 1:04 PM GARDE MANAGER): Echo Doppler 11/09/2018 showed mild aortic valve stenosis with no significant change since 06/15/2017 when the peak aortic valve gradient was 24, mean gradient 9, aortic valve area 1.5 centimeter sq. Assessment & Plan (02/07/2019 5:16 PM GARDE MANAGER): Echo 11/09/2018 continues to show mild aortic valve stenosis with no significant change since 06/15/2017 when the peak aortic valve gradient was 24, mean gradient 9, aortic valve area 1.5 centimeter sq. No aortic valve regurgitation. Assessment & Plan (11/16/2018 3:46 PM CDT): On 06/15/2017 the echo Doppler showed normal ejection fraction. Mild mitral regurgitation and mild tricuspid valve regurgitation with normal right ventricular systolic pressure. Peak aortic valve gradient 24, mean gradient 9, aortic valve area 1.5 centimeter sq. Mild aortic valve stenosis. No aortic regurgitation. Compared to the previous study of 12/27/2015 there was no major change. Echo 11/09/2018 continues to show mild aortic valve stenosis with no significant change since 06/15/2017. Mild left ventricular systolic dysfunction noted. Hyperlipidemia 01/08/2016 Assessment & Plan (09/25/2020 3:43 PM CDT): Low-fat low-cholesterol diet. Atorvastatin. On 05/07/2020 triglycerides 113, LDL 92. Assessment & Plan (05/28/2020 6:56 PM GARDE MANAGER): Low-fat low-cholesterol diet. Atorvastatin. On 05/07/2020 triglycerides 113, LDL 92. Assessment & Plan (02/20/2020 6:19 PM GARDE MANAGER): Low-fat low-cholesterol diet. Atorvastatin. On 11/18/2018 the LDL was 93. Assessment & Plan (12/19/2019 5:40 PM CDT): Low-fat low-cholesterol diet. Atorvastatin. On 11/18/2018 the LDL was 93. Assessment & Plan (08/15/2019 11:32 AM CDT): Low-fat low-cholesterol diet. Atorvastatin 20 mg bedtime daily. On 11/18/2018 the LDL was 93. Assessment & Plan (05/24/2019 10:58 AM GARDE MANAGER): Low-fat low-cholesterol diet. Atorvastatin 20 mg bedtime daily. On 11/18/2018 the LDL was 93. Before that it was 134 . Assessment & Plan (03/08/2019 1:02 PM GARDE MANAGER): Low-fat low-cholesterol diet. Atorvastatin 20 mg bedtime daily. On 11/18/2018 the LDL was 93. Previously it was 134. Significant improvement. Assessment & Plan (02/07/2019 5:13 PM GARDE MANAGER): Low-fat low-cholesterol diet. Pravastatin 40 mg bedtime daily was changed to Lipitor 20 mg bedtime daily. On 11/18/2018 the triglycerides were 90, total cholesterol 166, HDL 55, LDL 93. Previous LDL was 134. Significant improvement. Assessment & Plan (11/16/2018 3:45 PM CDT): Low-fat low-cholesterol diet. Pravastatin 40 mg bedtime daily. On 12/27/2015 the triglycerides were 79, total cholesterol 202, HDL 52, LDL 134. Will repeat the lipid profile and CPK in the next few days. Alcohol use with intoxication ([facility]) 05/27/19 14 Fall on same level from slip ping, tripping and stumbling without subsequent striking against object, initial encounter 05/27/2013 Immunizations Name Administration Dates Next Due Influenza, Unspecified 01/20/2018,01/12/2017, Social History Tobacco Use Types Packs/Day Years Used Date Smoking Tobacco: Former Cigarettes 0.5 49 1 969 - 2010 Smokeless Tobacco: Never Alcohol Use Standard Drinks/Week Comments Yes 2 (1 standard drink = 0.6 oz pur e alcohol) AUDIT-C Answer Date Recorded Q1: How often do you have a drink containing alc ohol? 2-4 times a month 05/02/2024 Q2: How many drinks containi ng alcohol do you have on a typical day when you are drinking? 1 or 2 05/02/2024 Q3: How often do you have si x or more drinks on one occasion? Never 05/02/2024 Personal Safety Answer Date Recorded Have you ever been in or are you currently in a harmful physical or emotional relationship or is someone making you feel afraid or unsafe? Denies 05/02/2024 Comments No Sex and Gender Information Value Date Recorded Sex Assigned at Not on file Legal Sex Female 3:35 PM GARDE MANAGER Gender Identity Not on file Sexual Orientation Not on file Last Filed Vital Signs Vital Sign Reading Time Taken Comments Blood Pressure 153/93 05/02/2024 8:35 AM GARDE MANAGER Pulse 58 05/02/2024 8:35 AM GARDE MANAGER Temperature 36.2 C (97.2 F) 05/02/2024 8:05 AM GARDE MANAGER Respiratory Rate 18 05/02/2024 8:35 AM GARDE MANAGER Oxygen Saturation 99% 05/02/2024 8:35 AM GARDE MANAGER Inhaled Oxygen Concentration - - Weight 93.5 kg (206 lb 1.6 oz) 05/02/2024 5:57 A M GARDE MANAGER Height 152.4 cm (5') 05/02/2024 5:57 AM GARDE MANAGER Body Mass Index 40.25 05/02/2024 5:57 AM GARDE MANAGER Plan of Treatment Not on file Medical Devices Implanted Type Area Anode Crew Supervisor Device Identifier Shelf Expiration Date Model / Serial / Lot Icd ICD Left: Chest [employer] Vascade Mvp 6-12fr Venous Closure [id number] - [id number] - [id number] Implanted:Qty: 1 on 07/20/2022 by Raudel Gallardo MD at [facility] Vascular Closure Device Right: Femoral Vein [employer] 12/05/2023 [id number] / [id number] / [id number] [employer] Vascade Mvp 6-12fr Venous Closure [id number] - [id number] - [id number] Implanted:Qty: 1 on 07/20/2022 by Raudel Gallardo MD at [facility] Vascular Closure Device Left: Femoral Vein [employer] 12/30/2023 [id number] [id number] / [id number] / [id number] [employer] Vascade Mvp 6-12fr Venous Closure [id number] - [id number] - [id number] Implanted:Qty: 1 on 07/20/2022 by Raudel Gallardo MD at [facility] Vascular Closure Device Left: Femoral Vein [employer] 04/04/2025 [id number] [id number] / [id number] / [id number] Toplist Angio-Seal Vip 6fr Closere Device [id number] - [id number] Implanted:Qty: 1 on 05/12/20[facility] 01/02/2023 [id number] / / [id number] Procedures Procedure Name Priority Date/Time Associated Diagnosis Comments LIPID PANEL Routine 05/15/2024 10:13 AM GARDE MANAGER Hyperlipidemia, unspecified hyperlipidemia type RELEASE CARPAL TUNNEL 05/02/2024 7:40 AM GARDE MANAGER Right carpal tunnel syndrome Case Notes RT CTR *local* XR HAND RIGHT 3 OR MORE VIEWS Schedule Routine, Read Routine (OP Routine) 04/19/2024 1:38 PM GARDE MANAGER Right hand pain SCAN - LABS Routine 02/21/2024 10:05 AM GARDE MANAGER DEXA AXIAL SKELETON BONE DENSITY 1 OR MORE SITES Routine 12/11/2016 12:20 PM CDT from Last 3 Months or Most Recently Relevant to Health Maintenance Results * Lipid panel (05/15/2024 10:13 AM GARDE MANAGER) Cholesterol 149 30 - 199 mg/dL Comment: Interpretive Data Ages < or = 19 years Acceptable: <170 mg/dL Borderline high: 170-199 mg/dL High: >or= 200 mg/dL Ages > or = 20 years Desirable: <200 mg/dL Borderline high: 200-239 mg/dL High: >or= 240 mg/dL Literature References: 1. Expert Panel on Integrated Guidelines for Cardiovascular Health and Risk Reduction in Children and Adolescents. Pediatrics 2011;128:S213 2. NCEP Expert Panel. Circulation 2004;110:227 Current Interpretive Data was last revised on 2017. Triglycerides 62 <=149 mg/dL REECE Comment: Interpretive Data Ages < or = 9 years Acceptable: <75 mg/dL Borderline high: 75-99 mg/dL High: >or= 100 mg/dL Ages 10 to 20 years Acceptable: <90 mg/dL Borderline high: 90-129 mg/dL High: >or= 130 mg/dL Ages > or = 20 years Desirable: <150 mg/dL Borderline high: 150-199 mg/dL High: 200-499 mg/dL Very high: >or= 499 mg/dL Literature References: 1. Expert Panel on Integrated Guidelines for Cardiovascular Health and Risk Reduction in Children and Adolescents. Pediatrics 2011;128:S213 2. NCEP Expert Panel. Circulation 2004;110:227 Current Interpretive Data was last revised on 2017. HDL 45 >=40 mg/dL REECE Comment: Interpretive Data Ages < or = 19 years Acceptable: >45 mg/dL Borderline low: 40-45 mg/dL Low: <40 mg/dL Ages > or = 20 years Desirable: >or= 60 mg/dL Low: <40 mg/dL Literature References: 1. Expert Panel on Integrated Guidelines for Cardiovascular Health and Risk Reduction in Children and Adolescents. Pediatrics 2011;128:S213 2. NCEP Expert Panel. Circulation 2004;110:227 Current Interpretive Data was last revised on 2017. LDL, calculated 91 <=129 mg/dL REECE Comment: Interpretive Data Ages < or = 19 years Acceptable: <110 mg/dL Borderline high: 110-129 mg/dL High: >or= 130 mg/dL Ages > or = 20 years Optimal: <100 mg/dL Near optimal: 100-129 mg/dL Borderline high: 130-159 mg/dL High: >160 mg/dL Calculated using the Mccloud LDL-C estimating equation. This equation was implemented on 2023. Prior to this date LDL-C was estimated using the Friedewald equation. Literature References: 1. Expert Panel on Integrated Guidelines for Cardiovascular Health and Risk Reduction in Children and Adolescents. Pediatrics 2011;128:S213 2. NCEP Expert Panel. Circulation 2004;110:227 3. Rogers M et al. SHAKILA Cardiol. 2020 August 03;5(5):540-548. doi: 10.1001/jamacardio.2020.0013 Current Interpretive Data was last revised on 2023. Non-HDL Cholesterol 104 mg/dL REECE Comment: Interpretive Data Ages < or = 19 years Acceptable: <120 mg/dL Borderline high: 120-144 mg/dL High: >145 mg/dL Ages > or = 20 years When triglycerides are >200 mg/dL, Non-HDL cholesterol is a secondary target of therapy with treatment goals that are 30 mg/dL greater than the LDL cholesterol target. Literature References: 1. Expert Panel on Integrated Guidelines for Cardiovascular Health and Risk Reduction in Children and Adolescents. Pediatrics 2011;128:S213 2. NCEP Expert Panel. Circulation 2004;110:227 Current Interpretive Data was last revised on 2017. Chol/HDL ratio 3 REECE Blood 05/15/2024 10:1 3 AM GARDE MANAGER 05/15/2024 10:54 AM GARDE MANAGER us Sultan Antwan Rudd MD LAB BLOOD ORDERABLES Final Re sult REECE [address] [facility] Department [place] [address] * XR Hand Right 3 or More Views (04/19/2024 1:38 PM GARDE MANAGER) Anatomical Region Laterality Modality Upper Extremities, Hand Right Computed Radiography Narrative 04/19/2024 1:38 PM GARDE MANAGER AP lateral and oblique x-rays of the right wrist on the mini C-arm show no obvious pathology us Joseph Troy MD IMG XR PROCEDURES Final Result * SCAN - LABS (02/21/2024 10:05 AM GARDE MANAGER) us Historical Provider Final Res ult * Dexa Axial Skeleton Bone Density 1 or 2 Site (12/11/2016 12:20 PM CDT) Anatomical Region Laterality Modality Body N/A Radiographic Raisa ging 12/11/2016 12:2 0 PM CDT Impressions 12/29/2016 2:17 PM CDT Osteoporosis by WHO criteria. Bone mineral density: Normal (T-score above or = -1.0) Low bone mass (T-score between -1.0 and -2.5) replaces the previously used term osteopenia Osteoporosis (T-score = or below -2.5) Medical evaluation for secondary causes of low bone mineral density may be appropriate. FRAX is a World Health Organization validated fracture risk assessment tool that calculates a person's 10 year probability of a major osteoporosis related fracture and hip fracture. According to the National Osteoporosis Foundation guidelines, postmenopausal women and men age 50 or older with low bone mass and a 10 year probability of a major osteoporosis related fracture = or greater than 20% or a 10 year probability of a hip fracture = or greater than 3% should be considered for treatment. For further information, including treatment recommendations, please refer to the 2013 ISCD Official Positions (http://www.iscd.org) and the NOF's Clinician's Guide to Prevention and Treatment of Osteoporosis (http://www.nof.org/professionals/clinical-guidelines) THIS IS AN ELECTRONICALLY VERIFIED REPORT 12/29/2016 2:14 PM: Charles Rodriguez M.D. Charles Rodriguez M.D. AB: 02:14 PM 02:14 PM BM [EOD] Narrative 12/29/2016 2:17 PM CDT EXAMINATION: DXA Bone Density Examination (Hip, Radius, and Spine). HISTORY: 61-year-old post menopausal female, screening for osteoporosis. Current Height: 59.5 inches Maximum Height: 60 inches Weight: 195 pounds RISK FACTORS: Alcohol use. COMPARISON(S): January 30, 2013. BEAD CUTTER/MODEL: [employer] SL [id number]. FINDINGS: AP lumbar spine L1-L4 Total BMD is 0.872 g/hx3Q-ozyka is -1.6 Most recent prior BMD was 0.906 g/cm2 There has been a 3.7% decrease in BMD in the lumbar spine. Dissimilar scan types or analysis methods precludes assessment for calculating a significant change. Left Hip Current Total BMD is 0.892 g/jd6O-bvsdi is -0.4 Most recent prior Total BMD was 0.903 g/cm2 There has been a 1.2% decrease in BMD in the left hip. Dissimilar scan types or analysis methods precludes assessment for calculating a significant change. Current femoral neck BMD is 0.659 g/bz7K-zicud is -1.7 Left 1/3 radius Total BMD is 0.534 g/yl6N-brnmc is -2.7 Bone mineral density in the left 1/3 radius was not measured on the prior examination Procedure Note Provider, MD Amy - 08/20/2020 EXAMINATION: DXA Bone Density Examination (Hip, Radius, and Spine). HISTORY: 61-year-old post menopausal female, screening for osteoporosis. Current Height: 59.5 inches Maximum Height: 60 inches Weight: 195 pounds RISK FACTORS: Alcohol use. COMPARISON(S): January 30, 2013. BEAD CUTTER/MODEL: [employer] SL [id number]. FINDINGS: AP lumbar spine L1-L4 Total BMD is 0.872 g/mw6M-nkvlm is -1.6 Most recent prior BMD was 0.906 g/cm2 There has been a 3.7% decrease in BMD in the lumbar spine. Dissimilar scan types or analysis methods precludes assessment for calculating asignificant change. Left Hip Current Total BMD is 0.892 g/az0J-iubwu is -0.4 Most recent prior Total BMD was 0.903 g/cm2 There has been a 1.2% decrease in BMD in the left hip. Dissimilar scantypes or analysis methods precludes assessment for calculating a significantchange. Current femoral neck BMD is 0.659 g/wn0N-shdnn is -1.7 Left 1/3 radius Total BMD is 0.534 g/sw3S-jynxk is -2.7 Bone mineral density in the left 1/3 radius was not measured on the prior examination IMPRESSION: Osteoporosis by WHO criteria. Bone mineral density: Normal (T-score above or = -1.0) Low bone mass (T-score between -1.0 and -2.5) replaces the previously used term osteopenia Osteoporosis (T-score = or below -2.5) Medical evaluation for secondary causes of low bone mineral density may be appropriate. FRAX is a World Health Organization validated fracture risk assessmenttool that calculates a person's 10 year probability of a major osteoporosisrelated fracture and hip fracture. According to the National OsteoporosisFoundation guidelines, postmenopausal women and men age 50 or older with low bonemass and a 10 year probability of a major osteoporosis related fracture = or greater than 20% or a 10 year probability of a hip fracture = or greaterthan 3% should be considered for treatment. For further information, including treatment recommendations, please referto the 2013 ISCD Official Positions (http://www.iscd.org) and the NOF's Clinician's Guide to Prevention and Treatment of Osteoporosis (http://www.nof.org/professionals/clinical-guidelines) THIS IS AN ELECTRONICALLY VERIFIED REPORT 12/29/2016 2:14 PM: Charles Rodriguez M.D. Charles Rodriguez M.D. AB: 02:14 PM 02:14 PM [facility] [EOD] Beni Li NP IM DXA PROCEDURES Final Res ult from Last 3 Months or Most Recently Relevant to Health Maintenance Insurance [facility] [id number] [place] [address] [address]ALTHCARE [id number] [place] [address] HEALTHCARE Advance Directives For more information, please contact: [phone] * Full Code (Latest Code Status on File) Date Activated Date Inactivated Comments 07/20/2022 9:41 PM 07/21/2022 4:16 PM Care Teams Administrative Program Specialist Relationship Specialty Start Date End Date Naila Person DO [address] [place] [address] [id number] PCP - General 06/14/17 Sania Lopez DO [address] [place] [address] Referring Physician General Surgery 03/14/18 Sultan Antwan Rudd MD [address] [place] [facility] [place] [address] Rn Mds Coordinator Cardiovascular Disease 11/15/18 Mark Pierre MD [address] [place] [address] Medical Oncologist/Host/Hostess Ground Medical Oncology 03/08/19
--- OUTSIDE RECORDS SUMMARY | 2024-05-18 10:17 | XMS_ITS | Encounter Summary ---
Author Organization [facility] Care Team Providers Care Recreation Aide Name Role Phone Naila Person DO Primary Care Provider [phone] Sania Lopez DO Unavailable [phone] Sultan Antwan Rudd MD Unavailable [phone] Sultan Antwan Rudd MD Unavailable [phone] Mark Pierre MD Unavailable [phone] Encounter Details Date Type Department Care Team (Latest Contact Info) Description 01/25/2018 Orders Only [facility] CLINCONV ProviderAmy MD [address] [place] [id number] Social History Tobacco Use Types Packs/Day Years Used Date Smoking Tobacco: Never Assessed Comments Unknown Sex and Gender Information Value Date Recorded Sex Assigned at Not on file Legal Sex Female 3:35 PM COLOR RECEIVER Gender Identity Not on file Sexual Orientation Not on file documented as of this encounter Plan of Treatment Not on file documented as of this encounter Procedures Procedure Name Priority Date/Time Associated Diagnosis Comments SCAN - LABS 05/04/2018 12:00 AM COLOR RECEIVER documented in this encounter Results * SCAN - LABS (05/04/2018 12:00 AM COLOR RECEIVER) Narrative 05/04/2018 12:00 AM COLOR RECEIVER Ordered by an unspecified provider. Historical Provider Final Res ult documented in this encounter Visit Diagnoses Not on filedocumented in this encounter Additional Health Concerns Infection Onset Date Last Indicated Resolved Time COVID19 Comment:01/19/2020 02/13/2020 02/12/2020 05/19/2021 3:05 AM Nuris JAY COVID: Suspected 05/11/2022 05/11/2022 05/11/2022 2:41 PM COLOR RECEIVER documented as of this encounter Care Teams Recreation Aide Relationship Specialty Start Date End Date Naila Person DO [address] [place] [address] PCP - General 06/14/17 [place] [address] [place] [id number] Referring Physician General Surgery 03/14/18 Sultan Antwan Rudd MD [address] [place] [address] [address] Fat Purification Worker Cardiovascular Disease 11/10/18 11/10/18 Sultan Antwan Rudd MD [address] [place] [address] [address] Fat Purification Worker Cardiovascular Disease 11/15/18 Mark Pierre MD [address] [place] [address] [address] Medical Oncologist/Auto Parts Handler Medical Oncology 03/08/19 documented as of this encounter
--- OUTSIDE RECORDS SUMMARY | 2024-05-18 10:17 | XMS_ITS ---
Author Organization [facility] Address [address] [place] [address] Care Team Providers Care Mobile Tester Name Role Phone Naila Person DO Primary Care Provider [phone] Sania Lopez DO Unavailable [phone] Sultan Antwan Rudd MD Unavailable [phone] Mark Pierre MD Unavailable [phone] Active Problems Problem Noted Date Diagnosed Date [...] PM CDT): NICM with associated HFrEF s/p UX VISUAL DESIGNER-D on 02/13/2020 Continue GDMT per her direct customer service representative Pain in right hand 04/30/2021 Abdominal pain, [...] thresholds. Assessment & Plan (03/21/2020 2:04 PM RIBBON WINDER): Factor change. Discussed in detail with patient. If makes matters worse come back if not for occasional episodes can change position Biventricular ICD (implantab le cardioverter-defibrillator) in place 02/21/2020 Assessment & Plan (11/24/2022 11:24 AM CDT): UX VISUAL DESIGNER-D is functioning appropriately as programmed Lead impedances, [...] monitoring quarterly Cardiac resynchronization th erapy defibrillator (UX VISUAL DESIGNER-D) in place 02/20/2020 Assessment & Plan (06/27/2020 1:32 PM CDT): Check shows normal function. Underlying rhythm sinus left bundle-branch block. No a pacing 90 8% LV paced. Excellent lead function. Battery 12 years. No arrhythmias Assessment & Plan (05/28/2020 6:54 PM RIBBON WINDER): Inserted 02/13/2020. Assessment & Plan (03/21/2020 2:13 PM RIBBON WINDER): Normal function. Underlying rhythm sinus with left bundle-branch block. No a pacing 99% V paced. Excellent lead function. LV thresholds 0.5 volts at 0.4 milliseconds. Battery 12 years. No arrhythmias Assessment & Plan (02/20/2020 6:21 PM RIBBON WINDER): Inserted 02/13/2020. Assessment & Plan (02/20/2020 2:01 PM RIBBON WINDER): Medtronic implanted February 13, 2020. Good clinical [...] 122/70. Assessment & Plan (05/29/2020 4:39 PM RIBBON WINDER): Salt restriction. Carvedilol. Lasix. Entresto. Blood pressure 140/80. Assessment & Plan (03/21/2020 2:26 PM RIBBON WINDER): Blood pressure runs at home systolic 130 diastolic in the 80s or below Assessment & Plan (02/21/2020 3:40 PM RIBBON WINDER): Blood pressure 144/80. Salt restriction. Continue the current regimen. Assessment & Plan (12/20/2019 4:21 PM CDT): Blood pressure 108/62. Salt restriction. Continue the current regimen. Assessment & Plan (08/16/2019 2:30 PM CDT): Blood pressure 130/80. Continue the current regimen. Salt restriction. Assessment & Plan (05/24/2019 4:32 PM RIBBON WINDER): Blood pressure 112/70. Salt restriction. Continue the current regimen. Assessment & Plan (03/09/2019 9:08 AM RIBBON WINDER): Blood pressure 126/80. Salt restriction. Continue the current regimen. Assessment & Plan (02/08/2019 2:27 PM RIBBON WINDER): Blood pressure 128/74. Salt restriction. Continue the current regimen. Personal history of congestive heart failure 09/2018 Assessment & Plan (09/26/2020 11:47 AM CDT): Stable the treatment.. Salt restriction. Lasix for decongestion. Assessment & Plan (05/28/2020 7:02 PM RIBBON WINDER): Salt restriction. Blood pressure control. Lasix for decongestion. On 05/07/2020 BUN 19, creatinine 0.72, potassium 4.2, sodium 138. GFR more than 60. Stage 2 kidney disease. Assessment & Plan (02/20/2020 6:25 PM RIBBON WINDER): Salt restriction. Blood pressure control. Lasix for [...] 142. Assessment & Plan (05/24/2019 10:55 AM RIBBON WINDER): Salt restriction. Blood pressure control. Lasix for decongestion. The BNP on 02/24/2019 was 186. BUN 16, creatinine 0.9, sodium 142, potassium 3.9. Assessment & Plan (03/08/2019 5:25 PM RIBBON WINDER): Was hospitalized at [facility] a few months back with congestive heart failure. Salt restriction. Blood pressure control. Lasix for decongestion. The BNP on 02/24/2019 was 186. Potassium 3.9, sodium 142, BUN 16, creatinine 0.9. Assessment & Plan (02/08/2019 2:30 PM RIBBON WINDER): Stable today. Salt restriction. Lasix for decongestion. Check SMA 7 and BNP level today. Left ventricular systolic dysfunction 11/16/2018 Assessment & Plan (11/24/2022 11:23 AM CDT): NICM with associated HFrEF s/p UX VISUAL DESIGNER-D Euvolemic on exam Assessment & Plan (09/25/2020 3:46 PM CDT): Biventricular pacemaker. Carvedilol. Entresto. Ejection fraction has improved as described above. Assessment & Plan (06/27/2020 1:26 PM CDT): Likely significantly better with UX VISUAL DESIGNER. Continue Entresto Assessment & Plan (05/29/2020 4:40 PM RIBBON WINDER): Worsening ejection fraction. Carvedilol. The lisinopril was changed to the Entresto. Follow up echo Doppler before the next appointment. Assessment & Plan (02/21/2020 3:41 PM RIBBON WINDER): Worsening ejection fraction. Carvedilol. Lisinopril was changed [...] home. Assessment & Plan (05/24/2019 4:31 PM RIBBON WINDER): Echo 11/09/2018 showed an ejection fraction 40-50%. Escalating doses of the lisinopril and the carvedilol. Increase the dose of the carvedilol to 12.5 mg p.o. b.i.d.. Return 6 weeks and try to increase the dose of lisinopril at that appointment. Assessment & Plan (03/09/2019 9:09 AM RIBBON WINDER): Echo 11/09/2018 showed an ejection fraction of 40-50%. Carvedilol. Lisinopril. Will gradually escalate the doses. Increase the Coreg to 6.25 mg p.o. b.i.d. on this visit. Assessment & Plan (02/08/2019 2:29 PM RIBBON WINDER): Echo 11/09/2018 showed mild left ventricular systolic [...] 12/28/2015. Assessment & Plan (05/28/2020 7:03 PM RIBBON WINDER): Negative stress test 12/28/2015. Assessment & Plan (02/20/2020 6:25 PM RIBBON WINDER): Negative stress test 12/28/2015. Assessment & Plan (12/19/2019 5:46 PM CDT): Negative stress test 12/28/2015. Assessment & Plan (08/15/2019 11:33 AM CDT): Negative stress test 12/28/2015. Assessment & Plan (05/24/2019 10:54 AM RIBBON WINDER): Negative stress test 12/28/2015. Assessment & Plan (03/08/2019 5:21 PM RIBBON WINDER): Negative and stress test 12/28/2015. Assessment & Plan (02/07/2019 5:18 PM RIBBON WINDER): Negative Lexiscan stress test 12/28/2015. Assessment & [...] 03/14/2018:Stage Unknown(cTX, cN1(f), cM0, G3, ER: Negative, WA: Negative, HER2: Negative) - Signed by Hever [...] mg - Medtronic interrogated device and turned UX VISUAL DESIGNER pacing on - Continue home meds Assessment & Plan (09/25/2020 3:47 PM CDT): Asymptomatic PVCs on the EKG. Assessment & Plan (06/27/2020 1:27 PM CDT): Jena very low. No additional treatment needed Assessment & Plan (05/28/2020 7:03 PM RIBBON WINDER): Asymptomatic PVCs on the EKG. No palpitations. Assessment & Plan (03/21/2020 2:26 PM RIBBON WINDER): Jena low by check Assessment & Plan (02/20/2020 6:26 PM RIBBON WINDER): Asymptomatic PVCs on the EKG. No palpitations . Assessment & Plan (12/19/2019 5:46 PM CDT): Asymptomatic PVCs on the EKG. Not significant. Assessment & Plan (08/15/2019 11:31 AM CDT): Asymptomatic PVCs on the EKG. Not significant. Assessment & Plan (05/24/2019 10:54 AM RIBBON WINDER): Asymptomatic PVCs seen on the EKG. Assessment & Plan (03/08/2019 1:01 PM RIBBON WINDER): Asymptomatic PVCs seen on the EKG. Assessment & Plan (02/08/2019 2:26 PM RIBBON WINDER): PVCs on the EKG. Asymptomatic. EKG today [...] Plan (06/27/2020 1:25 PM CDT): Treated with UX VISUAL DESIGNER Assessment & Plan (05/29/2020 4:40 PM RIBBON WINDER): Chronic left bundle branch block associated with cardiomyopathy. On 12/06/2019 the echo showed worsening of the ejection fraction less than 30%. Carvedilol. The lisinopril was changed to the Entresto. Underwent Bi V pacemaker insertion 02/13/2020. Repeat the echo Doppler before the next appointment. Assessment & Plan (03/21/2020 2:13 PM RIBBON WINDER): UX VISUAL DESIGNER 02/13/2020 Assessment & Plan (02/20/2020 6:21 PM RIBBON WINDER): Chronic left bundle branch block associated with cardiomyopathy. On 12/06/2019 the echo showed worsening of the left ventricular systolic function ejection fraction less than 30%. Carvedilol. The lisinopril was discontinued in the Entresto was started. Will gradually increase the dose. Underwent Bi V pacemaker insertion 02/13/2020. Assessment & Plan (02/05/2020 11:02 AM RIBBON WINDER): I spent a total of 30 Face to Face minutes of which more than 50% of the time was spent in counseling and coordination of care. This time included: UX VISUAL DESIGNER. Pacemakers versus defibrillators. Risk of implant not limited to bleeding infection pneumothorax. She is quite interested in having UX VISUAL DESIGNER and once a had a protection of [...] Lisinopril. Assessment & Plan (05/24/2019 10:57 AM RIBBON WINDER): Chronic left bundle branch block. Associated with cardiomyopathy. Ejection fraction by echo on 11/09/2018 was 40-50%. Carvedilol. Lisinopril. Assessment & Plan (03/08/2019 1:03 PM RIBBON WINDER): Chronic left bundle branch block. Associated with cardiomyopathy. Echo Doppler 11/09/2018 showed an ejection fraction of 40-50%. Carvedilol. Lisinopril. Assessment & Plan (02/08/2019 2:28 PM RIBBON WINDER): Chronic. The echo Doppler 11/09/2018 showed mild [...] stenosis.. Assessment & Plan (05/28/2020 7:00 PM RIBBON WINDER): Echo Doppler 12/06/2019 showed mild aortic valve stenosis with a peak gradient 23, mean gradient 12, aortic valve area 1.77 centimeter sq. No AR. Assessment & Plan (02/20/2020 6:24 PM RIBBON WINDER): Echo Doppler 12/06/2019 showed mild aortic valve [...] stenosis. Assessment & Plan (05/24/2019 10:56 AM RIBBON WINDER): Echo Doppler 11/09/2018 showed mild aortic valve stenosis. Assessment & Plan (03/08/2019 1:04 PM RIBBON WINDER): Echo Doppler 11/09/2018 showed mild aortic valve stenosis with no significant change since 06/15/2017 when the peak aortic valve gradient was 24, mean gradient 9, aortic valve area 1.5 centimeter sq. Assessment & Plan (02/07/2019 5:16 PM RIBBON WINDER): Echo 11/09/2018 continues to show mild aortic [...] 92. Assessment & Plan (05/28/2020 6:56 PM RIBBON WINDER): Low-fat low-cholesterol diet. Atorvastatin. On 05/07/2020 triglycerides 113, LDL 92. Assessment & Plan (02/20/2020 6:19 PM RIBBON WINDER): Low-fat low-cholesterol diet. Atorvastatin. On 11/18/2018 the LDL was 93. Assessment & Plan (12/19/2019 5:40 PM CDT): Low-fat low-cholesterol diet. Atorvastatin. On 11/18/2018 the LDL was 93. Assessment & Plan (08/15/2019 11:32 AM CDT): Low-fat low-cholesterol diet. Atorvastatin 20 mg bedtime daily. On 11/18/2018 the LDL was 93. Assessment & Plan (05/24/2019 10:58 AM RIBBON WINDER): Low-fat low-cholesterol diet. Atorvastatin 20 mg bedtime daily. On 11/18/2018 the LDL was 93. Before that it was 134 . Assessment & Plan (03/08/2019 1:02 PM RIBBON WINDER): Low-fat low-cholesterol diet. Atorvastatin 20 mg bedtime daily. On 11/18/2018 the LDL was 93. Previously it was 134. Significant improvement. Assessment & Plan (02/07/2019 5:13 PM RIBBON WINDER): Low-fat low-cholesterol diet. Pravastatin 40 mg bedtime [...] next few days. Alcohol use with intoxication ([facility]) 05/27/19 14 Fall on same level from slip ping, tripping and stumbling without subsequent striking against object, initial encounter 05/27/2013 Current Oncology Plans No current plan information found. Past Plans No past plan information found. Radiation Treatments * No radiation treatments are documented for this patient in [facility]. Treatments may have been administered in another system. Lifetime Dose Tracking * Chemical Lifetime Dose Automatic Entry Manual Entr y Air kerma at the reference point (Ka,r) 1,223 mGy 0 mGy 1,223 mGy DLP 4,369 mGycm 4,369 mGycm 0 mGycm
--- OUTSIDE RECORDS SUMMARY | 2024-05-18 10:17 | XMS_ITS | Clinical Summary ---
Author Organization [facility] Address [address] [place] [address] Care Team Providers Care Sterilization Technician Name Role Phone Naila Person DO Primary Care Provider [phone] Allergies Active Allergy Reactions Criticality Noted Date Comments Nut Flavor Anaphylaxis High 03/24/2018 Medications atorvastatin (LIPITOR) 20 mg tablet 10/16/2018 Active lisinopril (PRINIVIL) 10 mg tablet 01/29/2019 Active carvedilol (COREG) 3.125 mg tablet 01/29/2019 Active furosemide (LASIX) 40 mg tablet 01/29/2019 Active famotidine (PEPCID) 40 mg tablet 11/27/2018 Active Magnesium 200 mg Tablet 200 mg. Active aspirin (DYLON CHEWABLE) 81 mg Tablet, Chewable Take 81 mg by mouth. 01/29/2019 Active COD LIVER OIL ORAL 1 Capsule. Active garlic 1,000 mg Capsule Take by mouth. Active cholecalciferol , vitamin D3, (VITAMIN D3) 1,000 unit Take 1,000 Units by mouth daily. Active sacubitriL-vals kristie (ENTRESTO) 49-51 mg Tablet Take 1 Tablet by mouth. Active alendronate (FOSAMAX) 70 mg tablet 06/04/2019 Active albuterol HFA 90 mcg inhaler TAKE 2 PUFFS BY MOUTH EVERY 4 TO 6 HOURS NEEDED 02/13/2020 Active calcium-choleca lciferol (OS-ELYSE 500+D) 500 mg(1,250mg) -200 unit tablet Take 1 Tablet by mouth. Active cyanocobalamin (VITAMIN B-12) 100 mcg tablet Take 100 mcg by mouth. Active ferrous sulfate 325 mg (65 mg iron) tablet Take by mouth. Active zinc 50 mg Tablet Take by mouth. Active carvediloL (COREG) 12.5 mg tablet TAKE 1.5 TABLETS (18.75 MG TOTAL) BY MOUTH 2 (TWO) TIMES A DAY 06/24/2020 Active spironolactone (ALDACTONE) 25 mg tablet TAKE 1 TABLET (25 MG TOTAL) BY MOUTH DAILY. 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 Estrogen receptor negative 03/24/2018 History of antineoplastic chemotherapy 8 Epidermal cyst 03/24/2018 Absence of right breast 03/24/2018 Encounters Date Type Department Care Team Description 04/27/2024 External Device Data STL ABSTRACTION Provider, Abstract 03/14/2024 Telephone [facility] Oncology [facility] H[facility]ology [facility] [address] [place] [phone] Timmy Carrion MD Vaginal Itching from Last 3 Months Family History Relation Name Status Comments Brother Alive Father Mother Sister 1 Alive Sister 2 Alive Sister 3 Sister 4 Social History Tobacco Use Types Packs/Day Years Used Date Smoking Tobacco: Former Cigarettes 0.3 25 0 09/03/1984 - 09/03/2009 Smokeless Tobacco: Never Tobacco Cessation:Counseling Given: Not Answered Alcohol Use Standard Drinks/Week Comments Not Currently 0 (1 standard drink = 0.6 oz pur e alcohol) Comments No Sex and Gender Information Value Date Recorded Sex Assigned at Not on file Legal Sex Female 12:32 PM PROGRAM MANAGER RN Gender Identity Not on file Sexual Orientation Not on file Last Filed Vital Signs Vital Sign Reading Time Taken Comments Blood Pressure 140/79 01/03/2024 12:59 PM CDT Pulse 71 01/03/2024 12:59 PM CDT Temperature 36.5 C (97.7 F) 01/03/2024 12:59 PM CDT Respiratory Rate 18 01/03/2024 12:59 PM CDT Oxygen Saturation 92% 01/03/2024 12:59 PM CDT Inhaled Oxygen Concentration - - Weight 93 kg (205 lb) 01/03/2024 12:59 PM CDT Height 152.4 cm (5') 03/03/2021 2:21 PM PROGRAM MANAGER RN Body Mass Index 40.04 03/03/2021 2:21 PM PROGRAM MANAGER RN Plan of Treatment Upcoming Encounters Date Type Department Care Team (Late st Contact Info) Description 01/03/2025 10:00 AM CDT Office Visit [facility] [address] [facility] [address] [place] [address] Timmy Carrion MD [address] [place] [address] Health Maintenance Due Date Last Done Comments Pre-Diabetes and Diabetes Screening 1955 DTAP/TDAP/TD VACCINES (1 - Tdap) 1972 PNEUMOCOCCAL VACCINE 65+ YEA RS (1 of 2 - PCV) 1972 COLORECTAL SCREENING 1998 Colorectal Cancer Screening 1998 FIT-DNA Q 3 years 1998 FIT/FOBT Q 1 year 1998 Flex Sig/CT Colonography Q 5 years 1998 RSV VACCINE (60+ or ) (1 - Risk 60-74 years 1-dose series) 2013 INFLUENZA VACCINE (#1) 2023 12/23/2020 [place] Preventative Visit/Annual Wellness Visit 04/05/2024 BREAST CANCER SCREENING 04/22/2024 04/22/19 24, 01/30/2019, 01/28/2018, Additional history exists OSTEOPOROSIS SCREENING Completed 7, 12/11/2016, 01/30/2013 ZOSTER VACCINE Completed 07/12/2021, 05/12/2021 Procedures Procedure Name Priority Date/Time Associated Diagnosis Comments MAMMO SCREENING UNILATERAL LEFT Routine 04/22/2023 1:17 PM PROGRAM MANAGER RN from Last 3 Months or Most Recently Relevant to Health Maintenance Results * MAMMO SCREENING UNILATERAL LEFT (04/22/2023 1:17 PM PROGRAM MANAGER RN) Anatomical Region Laterality Modality Breast Left Other Timmy Carrion MD MAMMO ORDERABLES Final Result from Last 3 Months or Most Recently Relevant to Health Maintenance Insurance [facility] [employer] Address: [address] [place] [address] Care Teams Sterilization Technician Relationship Specialty Start Date End Date aNila Person DO [address] [place] [phone] PCP - General Internal Medicine 02/07/18
--- OUTSIDE RECORDS SUMMARY | 2024-05-18 10:17 | XMS_ITS | Encounter Summary ---
Author Organization [facility] Care Team Providers Care Stacker And Sorter Operator Name Role Phone Naila Person DO Primary Care Provider [phone] Sania Lopez DO Unavailable [phone] Sultan Antwan Rudd MD Unavailable [phone] Sultan Antwan Rudd MD Unavailable [phone] Mark Pierre MD Unavailable [phone] Encounter Details Date Type Department Care Team (Latest Contact Info) Description 12/27/2015 Orders Only [facility]INCON[facility] ProviderAmy MD [address] [place] [id number] Social History Tobacco Use Types Packs/Day Years Used Date Smoking Tobacco: Never Assessed Comments Unknown Sex and Gender Information Value Date Recorded Sex Assigned at Not on file Legal Sex Female 3:35 PM STOVE INSTALLER Gender Identity Not on file Sexual Orientation Not on file documented as of this encounter Plan of Treatment Not on file documented as of this encounter Procedures Procedure Name Priority Date/Time Associated Diagnosis Comments CARDIOLOGY REPORT 12/30/2015 12: 00 AM CDT CARDIOLOGY REPORT 12/30/2015 12: 00 AM CDT CARDIOLOGY REPORT 12/30/2015 12: 00 AM CDT documented in this encounter Results * CARDIOLOGY REPORT (12/30/2015 12:00 AM CDT) Anatomical Region Laterality Modality Other Narrative 12/30/2015 12:00 AM CDT Ordered by an unspecified provider. Historical Provider [facility] CARDIAC SERVICES PROCE DURES Final Result * CARDIOLOGY REPORT (12/30/2015 12:00 AM CDT) Anatomical Region Laterality Modality Other Narrative 12/30/2015 12:00 AM CDT Ordered by an unspecified provider. Historical Provider MD CV CARDIAC SERVICES PROCE DURES Final Result * CARDIOLOGY REPORT (12/30/2015 12:00 AM CDT) Anatomical Region Laterality Modality Other Narrative 12/30/2015 12:00 AM CDT Ordered by an unspecified provider. Historical Provider CV CARDIAC SERVICES PROCE DURES Final Result documented in this encounter Visit Diagnoses Not on filedocumented in this encounter Additional Health Concerns Infection Onset Date Last Indicated Resolved Time COVID19 Comment:01/19/2020 02/13/2020 02/12/2020 05/19/2021 3:[address] COVID: Suspected 05/11/2022 05/11/2022 05/11/2022 2:41 PM STOVE INSTALLER documented as of this encounter Care Teams Stacker And Sorter Operator Relationship Specialty Start Date End Date Naila Person DO [address] [place] [address] PCP - General 06/14/17 [place] [address] [place] [address] Referring Physician General Surgery 03/14/18 Sultan Antwan Rudd MD [address] [place] [address] Choke Reamer Cardiovascular Disease 11/10/18 11/10/18 Sultan Antwan Rudd MD [address] [place] [address] [address] Choke Reamer Cardiovascular Disease 11/15/18 Mark Pierre MD [address] [place] [address] [address] Medical Oncologist/Stone Setter Apprentice Medical Oncology 03/08/19 documented as of this encounter
--- OUTSIDE RECORDS SUMMARY | 2024-05-18 10:17 | XMS_ITS | Clinical Summary ---
Author Organization [facility] Address [address] [place] [address] Care Team Providers Care Document Control Coordinator Name Role Phone Naila Person DO Primary Care Provider [phone] Sania Lopez DO Unavailable [phone] Sultan Antwan Rudd MD Unavailable [phone] Mark Pierre MD Unavailable [phone] Allergies Active Allergy Reactions Criticality Noted Date Comments Nut Flavor Anaphylaxis High 03/24/2018 Peanut Anaphylaxis High 09/15/2018 Medications aspirin 81 mg enteric coated tabletIndications :heart health Take 1 tablet (81 mg total) by mouth mattress maker before breakfast 03/24/20 16 Active calcium carbonate-vitamin D3 600 mg calcium- 200 unit capsuleIndication s:Hypocalcemia Prevention Take 1 capsule by mouth nightly 03/24/20 16 Active atorvastatin (LIPITOR) 20 mg tabletIndications :hyperlipidemia Take 1 tablet (20 mg total) by mouth nightly 02/05/20 18 Active furosemide (LASIX) 40 mg tabletIndications :Edema Take 1 tablet (40 mg total) by mouth mattress maker before breakfast Active famotidine (PEPCID) 40 mg tabletIndications :gastroesophageal reflux disease Take 1 tablet (40 mg total) by mouth mattress maker before breakfast Active magnesium gluconate 200 mg tabletIndications :hypomagnesemia Take 1 tablet (200 mg total) by mouth mattress maker before breakfast Active cod liver oil capsule Take 1 capsule by mouth mattress maker before breakfast Active garlic 1,000 mg capsule [...] 1 tablet (325 mg total) by mouth mattress maker before breakfast Active zinc 50 mg tabletIndications [...] TOTAL) BY MOUTH DAILY. 90 tablet 3 08/04/19 24 025 Active methylPREDNISolon e (MEDROL DOSEPACK) [...] PM CDT): NICM with associated HFrEF s/p ASSISTANT RESTAURANT GENERAL MANAGER-D on 02/13/2020 Continue GDMT per her office worker Pain in right hand 04/30/2021 Abdominal pain, [...] thresholds. Assessment & Plan (03/21/2020 2:04 PM OCCUPATIONAL SAFETY SPECIALIST): Factor change. Discussed in detail with patient. If makes matters worse come back if not for occasional episodes can change position Biventricular ICD (implantab le cardioverter-defibrillator) in place 02/21/2020 Assessment & Plan (11/24/2022 11:24 AM CDT): ASSISTANT [employer] GENERAL MANAGER-D is functioning appropriately as programmed Lead impedances, [...] monitoring quarterly Cardiac resynchronization th erapy defibrillator (ASSISTANT RESTAURANT GENERAL MANAGER-D) in place 02/20/2020 Assessment & Plan (06/27/2020 1:32 PM CDT): Check shows normal function. Underlying rhythm sinus left bundle-branch block. No a pacing 90 8% LV paced. Excellent lead function. Battery 12 years. No arrhythmias Assessment & Plan (05/28/2020 6:54 PM OCCUPATIONAL SAFETY SPECIALIST): Inserted 02/13/2020. Assessment & Plan (03/21/2020 2:13 PM OCCUPATIONAL SAFETY SPECIALIST): Normal function. Underlying rhythm sinus with left bundle-branch block. No a pacing 99% V paced. Excellent lead function. LV thresholds 0.5 volts at 0.4 milliseconds. Battery 12 years. No arrhythmias Assessment & Plan (02/20/2020 6:21 PM OCCUPATIONAL SAFETY SPECIALIST): Inserted 02/13/2020. Assessment & Plan (02/20/2020 2:01 PM OCCUPATIONAL SAFETY SPECIALIST): Medtronic implanted February 13, 2020. Good clinical [...] 122/70. Assessment & Plan (05/29/2020 4:39 PM OCCUPATIONAL SAFETY SPECIALIST): Salt restriction. Carvedilol. Lasix. Entresto. Blood pressure 140/80. Assessment & Plan (03/21/2020 2:26 PM OCCUPATIONAL SAFETY SPECIALIST): Blood pressure runs at home systolic 130 diastolic in the 80s or below Assessment & Plan (02/21/2020 3:40 PM OCCUPATIONAL SAFETY SPECIALIST): Blood pressure 144/80. Salt restriction. Continue the current regimen. Assessment & Plan (12/20/2019 4:21 PM CDT): Blood pressure 108/62. Salt restriction. Continue the current regimen. Assessment & Plan (08/16/2019 2:30 PM CDT): Blood pressure 130/80. Continue the current regimen. Salt restriction. Assessment & Plan (05/24/2019 4:32 PM OCCUPATIONAL SAFETY SPECIALIST): Blood pressure 112/70. Salt restriction. Continue the current regimen. Assessment & Plan (03/09/2019 9:08 AM OCCUPATIONAL SAFETY SPECIALIST): Blood pressure 126/80. Salt restriction. Continue the current regimen. Assessment & Plan (02/08/2019 2:27 PM OCCUPATIONAL SAFETY SPECIALIST): Blood pressure 128/74. Salt restriction. Continue the current regimen. Personal history of congestive heart failure 09/2018 Assessment & Plan (09/26/2020 11:47 AM CDT): Stable the treatment.. Salt restriction. Lasix for decongestion. Assessment & Plan (05/28/2020 7:02 PM OCCUPATIONAL SAFETY SPECIALIST): Salt restriction. Blood pressure control. Lasix for decongestion. On 05/07/2020 BUN 19, creatinine 0.72, potassium 4.2, sodium 138. GFR more than 60. Stage 2 kidney disease. Assessment & Plan (02/20/2020 6:25 PM OCCUPATIONAL SAFETY SPECIALIST): Salt restriction. Blood pressure control. Lasix for [...] 142. Assessment & Plan (05/24/2019 10:55 AM OCCUPATIONAL SAFETY SPECIALIST): Salt restriction. Blood pressure control. Lasix for decongestion. The BNP on 02/24/2019 was 186. BUN 16, creatinine 0.9, sodium 142, potassium 3.9. Assessment & Plan (03/08/2019 5:25 PM OCCUPATIONAL SAFETY SPECIALIST): Was hospitalized at [facility] a few months back with congestive heart failure. Salt restriction. Blood pressure control. Lasix for decongestion. The BNP on 02/24/2019 was 186. Potassium 3.9, sodium 142, BUN 16, creatinine 0.9. Assessment & Plan (02/08/2019 2:30 PM OCCUPATIONAL SAFETY SPECIALIST): Stable today. Salt restriction. Lasix for decongestion. Check SMA 7 and BNP level today. Left ventricular systolic dysfunction 11/16/2018 Assessment & Plan (11/24/2022 11:23 AM CDT): NICM with associated HFrEF s/p ASSISTANT [employer]ANT GENERAL MANAGER-D Euvolemic on exam Assessment & Plan (09/25/2020 3:46 PM CDT): Biventricular pacemaker. Carvedilol. Entresto. Ejection fraction has improved as described above. Assessment & Plan (06/27/2020 1:26 PM CDT): Likely significantly better with ASSISTANT RESTAURANT GENERAL MANAGER. Continue Entresto Assessment & Plan (05/29/2020 4:40 PM OCCUPATIONAL SAFETY SPECIALIST): Worsening ejection fraction. Carvedilol. The lisinopril was changed to the Entresto. Follow up echo Doppler before the next appointment. Assessment & Plan (02/21/2020 3:41 PM OCCUPATIONAL SAFETY SPECIALIST): Worsening ejection fraction. Carvedilol. Lisinopril was changed [...] home. Assessment & Plan (05/24/2019 4:31 PM OCCUPATIONAL SAFETY SPECIALIST): Echo 11/09/2018 showed an ejection fraction 40-50%. Escalating doses of the lisinopril and the carvedilol. Increase the dose of the carvedilol to 12.5 mg p.o. b.i.d.. Return 6 weeks and try to increase the dose of lisinopril at that appointment. Assessment & Plan (03/09/2019 9:09 AM OCCUPATIONAL SAFETY SPECIALIST): Echo 11/09/2018 showed an ejection fraction of 40-50%. Carvedilol. Lisinopril. Will gradually escalate the doses. Increase the Coreg to 6.25 mg p.o. b.i.d. on this visit. Assessment & Plan (02/08/2019 2:29 PM OCCUPATIONAL SAFETY SPECIALIST): Echo 11/09/2018 showed mild left ventricular systolic [...] 12/28/2015. Assessment & Plan (05/28/2020 7:03 PM OCCUPATIONAL SAFETY SPECIALIST): Negative stress test 12/28/2015. Assessment & Plan (02/20/2020 6:25 PM OCCUPATIONAL SAFETY SPECIALIST): Negative stress test 12/28/2015. Assessment & Plan (12/19/2019 5:46 PM CDT): Negative stress test 12/28/2015. Assessment & Plan (08/15/2019 11:33 AM CDT): Negative stress test 12/28/2015. Assessment & Plan (05/24/2019 10:54 AM OCCUPATIONAL SAFETY SPECIALIST): Negative stress test 12/28/2015. Assessment & Plan (03/08/2019 5:21 PM OCCUPATIONAL SAFETY SPECIALIST): Negative and stress test 12/28/2015. Assessment & Plan (02/07/2019 5:18 PM OCCUPATIONAL SAFETY SPECIALIST): Negative Lexiscan stress test 12/28/2015. Assessment & [...] 03/14/2018:Stage Unknown(cTX, cN1(f), cM0, G3, ER: Negative, MS: Negative, HER2: Negative) - Signed by Hever [...] mg - Medtronic interrogated device and turned ASSISTANT RESTAURANT GENERAL MANAGER pacing on - Continue home meds Assessment & Plan (09/25/2020 3:47 PM CDT): Asymptomatic PVCs on the EKG. Assessment & Plan (06/27/2020 1:27 PM CDT): [place] very low. No additional treatment needed Assessment & Plan (05/28/2020 7:03 PM OCCUPATIONAL SAFETY SPECIALIST): Asymptomatic PVCs on the EKG. No palpitations. Assessment & Plan (03/21/2020 2:26 PM OCCUPATIONAL SAFETY SPECIALIST): [place] low by check Assessment & Plan (02/20/2020 6:26 PM OCCUPATIONAL SAFETY SPECIALIST): Asymptomatic PVCs on the EKG. No palpitations . Assessment & Plan (12/19/2019 5:46 PM CDT): Asymptomatic PVCs on the EKG. Not significant. Assessment & Plan (08/15/2019 11:31 AM CDT): Asymptomatic PVCs on the EKG. Not significant. Assessment & Plan (05/24/2019 10:54 AM OCCUPATIONAL SAFETY SPECIALIST): Asymptomatic PVCs seen on the EKG. Assessment & Plan (03/08/2019 1:01 PM OCCUPATIONAL SAFETY SPECIALIST): Asymptomatic PVCs seen on the EKG. Assessment & Plan (02/08/2019 2:26 PM OCCUPATIONAL SAFETY SPECIALIST): PVCs on the EKG. Asymptomatic. EKG today [...] Plan (06/27/2020 1:25 PM CDT): Treated with ASSISTANT RESTAURANT GENERAL MANAGER Assessment & Plan (05/29/2020 4:40 PM OCCUPATIONAL SAFETY SPECIALIST): Chronic left bundle branch block associated with cardiomyopathy. On 12/06/2019 the echo showed worsening of the ejection fraction less than 30%. Carvedilol. The lisinopril was changed to the Entresto. Underwent Bi V pacemaker insertion 02/13/2020. Repeat the echo Doppler before the next appointment. Assessment & Plan (03/21/2020 2:13 PM OCCUPATIONAL SAFETY SPECIALIST): ASSISTANT RESTAURANT GENERAL MANAGER 02/13/2020 Assessment & Plan (02/20/2020 6:21 PM OCCUPATIONAL SAFETY SPECIALIST): Chronic left bundle branch block associated with cardiomyopathy. On 12/06/2019 the echo showed worsening of the left ventricular systolic function ejection fraction less than 30%. Carvedilol. The lisinopril was discontinued in the Entresto was started. Will gradually increase the dose. Underwent Bi V pacemaker insertion 02/13/2020. Assessment & Plan (02/05/2020 11:02 AM OCCUPATIONAL SAFETY SPECIALIST): I spent a total of 30 Face to Face minutes of which more than 50% of the time was spent in counseling and coordination of care. This time included: ASSISTANT RESTAURANT GENERAL MANAGER. Pacemakers versus defibrillators. Risk of implant not limited to bleeding infection pneumothorax. She is quite interested in having ASSISTANT RESTAURANT GENERAL MANAGER and once a had a protection of [...] Lisinopril. Assessment & Plan (05/24/2019 10:57 AM OCCUPATIONAL SAFETY SPECIALIST): Chronic left bundle branch block. Associated with cardiomyopathy. Ejection fraction by echo on 11/09/2018 was 40-50%. Carvedilol. Lisinopril. Assessment & Plan (03/08/2019 1:03 PM OCCUPATIONAL SAFETY SPECIALIST): Chronic left bundle branch block. Associated with cardiomyopathy. Echo Doppler 11/09/2018 showed an ejection fraction of 40-50%. Carvedilol. Lisinopril. Assessment & Plan (02/08/2019 2:28 PM OCCUPATIONAL SAFETY SPECIALIST): Chronic. The echo Doppler 11/09/2018 showed mild [...] stenosis.. Assessment & Plan (05/28/2020 7:00 PM OCCUPATIONAL SAFETY SPECIALIST): Echo Doppler 12/06/2019 showed mild aortic valve stenosis with a peak gradient 23, mean gradient 12, aortic valve area 1.77 centimeter sq. No AR. Assessment & Plan (02/20/2020 6:24 PM OCCUPATIONAL SAFETY SPECIALIST): Echo Doppler 12/06/2019 showed mild aortic valve [...] stenosis. Assessment & Plan (05/24/2019 10:56 AM OCCUPATIONAL SAFETY SPECIALIST): Echo Doppler 11/09/2018 showed mild aortic valve stenosis. Assessment & Plan (03/08/2019 1:04 PM OCCUPATIONAL SAFETY SPECIALIST): Echo Doppler 11/09/2018 showed mild aortic valve stenosis with no significant change since 06/15/2017 when the peak aortic valve gradient was 24, mean gradient 9, aortic valve area 1.5 centimeter sq. Assessment & Plan (02/07/2019 5:16 PM OCCUPATIONAL SAFETY SPECIALIST): Echo 11/09/2018 continues to show mild aortic [...] 92. Assessment & Plan (05/28/2020 6:56 PM OCCUPATIONAL SAFETY SPECIALIST): Low-fat low-cholesterol diet. Atorvastatin. On 05/07/2020 triglycerides 113, LDL 92. Assessment & Plan (02/20/2020 6:19 PM OCCUPATIONAL SAFETY SPECIALIST): Low-fat low-cholesterol diet. Atorvastatin. On 11/18/2018 the LDL was 93. Assessment & Plan (12/19/2019 5:40 PM CDT): Low-fat low-cholesterol diet. Atorvastatin. On 11/18/2018 the LDL was 93. Assessment & Plan (08/15/2019 11:32 AM CDT): Low-fat low-cholesterol diet. Atorvastatin 20 mg bedtime daily. On 11/18/2018 the LDL was 93. Assessment & Plan (05/24/2019 10:58 AM OCCUPATIONAL SAFETY SPECIALIST): Low-fat low-cholesterol diet. Atorvastatin 20 mg bedtime daily. On 11/18/2018 the LDL was 93. Before that it was 134 . Assessment & Plan (03/08/2019 1:02 PM OCCUPATIONAL SAFETY SPECIALIST): Low-fat low-cholesterol diet. Atorvastatin 20 mg bedtime daily. On 11/18/2018 the LDL was 93. Previously it was 134. Significant improvement. Assessment & Plan (02/07/2019 5:13 PM OCCUPATIONAL SAFETY SPECIALIST): Low-fat low-cholesterol diet. Pravastatin 40 mg bedtime [...] next few days. Alcohol use with intoxication (CMS/HCC) 05/27/19 14 Fall on same level from slip ping, tripping and stumbling without subsequent striking against object, initial encounter 05/27/2013 Encounters Date Type Department Care Team Description 05/15/2024 11:00 AM OCCUPATIONAL SAFETY SPECIALIST Office Visit [facility] [address] [place] [address] Joseph Troy MD Right carpal tunnel syndrome (Primary Dx) 05/15/2024 9:55 AM OCCUPATIONAL SAFETY SPECIALIST Lab [facility] [address] [place] [address] Hyperlipidemia, unspecified hyperlipidemia type 05/12/2024 7:30 AM OCCUPATIONAL SAFETY SPECIALIST Ancillary Procedure [facility] [address] [facility] [address] [place] [address] Dilated cardiomyopathy (CMS/HCC) (HCC); LBBB (left bundle branch block); Cardiac resynchronization therapy defibrillator (ASSISTANT RESTAURANT GENERAL MANAGER-D) in place 05/08/2024 Telephone [facility] [address] [facility] [address] [place] [address] Joseph Troy MD work note 05/02/2024 8:00 AM OCCUPATIONAL SAFETY SPECIALIST - 05/02/2024 8:30 AM OCCUPATIONAL SAFETY SPECIALIST Surgery [facility] [place] [address] [place] [phone] Joseph Troy MD RIGHT CARPAL TUNNEL RELEASE 05/02/2024 5:46 AM OCCUPATIONAL SAFETY SPECIALIST - 05/02/2024 8:40 AM OCCUPATIONAL SAFETY SPECIALIST Hospital Encounter [facility] OR [address] [place] [phone] Joseph Troy MD Right carpal tunnel syndrome [G56.01] (Primary Dx) Discharge Disposition: Discharge to home or self care 04/27/2024 Telephone [facility] [address] [place] [phone] Sultan Antwan Rudd MD 04/26/2024 Telephone [facility] [address] [place] [phone] Joseph Troy MD 04/19/2024 12:30 PM OCCUPATIONAL SAFETY SPECIALIST Office Visit [facility] Medical [facility] Surgery [address] [place] [phone] Joseph Troy MD Right hand pain (Primary Dx); Right carpal tunnel syndrome 04/19/2024 12:20 PM OCCUPATIONAL SAFETY SPECIALIST Ancillary Procedure [facility] [address] [place] [phone] 03/13/2024 10:30 AM OCCUPATIONAL SAFETY SPECIALIST Office Visit [facility] [address] [place] [phone] Sultan Antwan Rudd MD Nonrheumatic aortic valve stenosis (Primary Dx); Ventricular premature depolarization 02/23/2024 Orders Only [facility] [address] [place] [phone] Provider, MD Amy from Last 3 Months Immunizations Name Administration Dates Next Due Influenza, Unspecified 01/20/2018,01/12/2017, Surgical History Surgery Date Site/Laterality Comments BREAST BIOPSY Right MASTECTOMY Right 2011 & 2014 BREAST RECONSTRUCTION 04/05/2014 - 04/04/2015 APPENDECTOMY 04/05/1975 - 04/04/1976 SECTION x 2 COLONOSCOPY CARPAL TUNNEL RELEASE Left 05/09/21 CARDIAC DEFIBRILLATOR PLACEMENT 02/13/2020 Left Medtronic ASSISTANT RESTAURANT GENERAL MANAGER-D VAGINAL DELIVERY x 1 w/ epidural CARPAL TUNNEL RELEASE 05/02/2024 Right Medical History Medical History Date Comments Breast cancer (HCC) Right Hypertension Hypercholesteremia Gastric reflux Cardiomyopathy (HCC) Arrhythmia ablation and AIC D placement 02/13/2020 GERD (gastroesophageal reflux disease) Blind left eye Aneurysm (CMS/HCC) (HCC) 1988 Right o ccipital--had crainiotomy at [facility]--was left blind in left eye Family History Medical History Relation Name Comments [facility] Requiring Dialysis Brother Heart disease Father age 5 7 yrs Diabetes Mother Heart disease Mother Relation Name Status Comments Brother Alive Father Mother Social History Tobacco Use Types Packs/Day Years Used Date Smoking Tobacco: Former Cigarettes 0.5 49 1 969 - 2009 Smokeless Tobacco: Never Alcohol Use Standard Drinks/Week [...] on file Legal Sex Female 3:35 PM OCCUPATIONAL SAFETY SPECIALIST Gender Identity Not on file Sexual Orientation Not on file Obstetrics History Last Filed Vital Signs Vital Sign Reading Time Taken Comments Blood Pressure 153/93 05/02/2024 8:35 AM OCCUPATIONAL SAFETY SPECIALIST Pulse 58 05/02/2024 8:35 AM OCCUPATIONAL SAFETY SPECIALIST Temperature 36.2 C (97.2 F) 05/02/2024 8:05 AM OCCUPATIONAL SAFETY SPECIALIST Respiratory Rate 18 05/02/2024 8:35 AM OCCUPATIONAL SAFETY SPECIALIST Oxygen Saturation 99% 05/02/2024 8:35 AM OCCUPATIONAL SAFETY SPECIALIST Inhaled Oxygen Concentration - - Weight 93.5 kg (206 lb 1.6 oz) 05/02/2024 5:57 A M OCCUPATIONAL SAFETY SPECIALIST Height 152.4 cm (5') 05/02/2024 5:57 AM OCCUPATIONAL SAFETY SPECIALIST Body Mass Index 40.25 05/02/2024 5:57 AM OCCUPATIONAL SAFETY SPECIALIST Plan of Treatment Health Maintenance Due Date Last Done Comments Colon Cancer Screening-Colonoscopy 1955 Depression Screening 1955 Hepatitis C Screening 1955 DTaP/Tdap/Td Vaccine (1 - Tdap) 1964 Hepatitis B Screening 11/11/1971 Zoster Vaccine (1 of 2) 11/11/2003 Well Visit 65+ 2018 Osteoporosis Screening-Bone Density Scan 12/11/2018 12/11/2016, 12/11/2016, 01/30/2013 Pneumococcal vaccine 65+ (2 of 2 - PPSV23 or PCV20) 03/15/2019 01/18/2019 Breast Cancer Screening-Mammogram 01/31/2020 019 Fall Risk Assessment 07/22/2023 07/21/2022 Influenza Vaccine Completed 12/24/2023, , 01/20/2018, Additional history exists Medical Devices Implanted Type Area Justice [employer] Judge Device Identifier Shelf Expiration Date Model / Serial / Lot Icd ICD Left: Chest [employer] Vascade Mvp 6-12fr Venous Closure [id number] - [id number] - [id number] Implanted:Qty: 1 on 07/20/2022 by Raudel Gallardo MD at [facility] Vascular Closure Device Right: Femoral Vein [employer] 12/05/2023 [id number] [id number] / [id number] / [id number] 14A [employer] Vascade Mvp 6-12fr Venous Closure [id number] - [id number] - [id number] Implanted:Qty: 1 on 07/20/2022 by Raudel Gallardo MD at [facility] Vascular Closure Device Left: Femoral Vein [employer] 12/30/2023 [id number] [id number] / [id number] / [id number] 29B [employer] Vascade Mvp 6-12fr Venous Closure [id number] - [id number] - [id number] Implanted:Qty: 1 on 07/20/2022 by Raudel Gallardo MD at [facility] Vascular Closure Device Left: Femoral Vein [employer] 04/04/2025 [id number] [id number] / [id number] / [id number] 09B [employer] Angio-Seal Vip 6fr Closere Device [id number] - [id number] Implanted:Qty: 1 on 05/12/2022 by Jaspreet Owens MD at [facility] [employer] 01/02/2023 [id number] / [id number] Procedures Procedure Name Priority Date/Time Associated Diagnosis Comments LIPID PANEL Routine 05/15/2024 10:13 AM OCCUPATIONAL SAFETY SPECIALIST Hyperlipidemia, unspecified hyperlipidemia type RELEASE CARPAL TUNNEL 05/02/2024 7:40 AM OCCUPATIONAL SAFETY SPECIALIST Right carpal tunnel syndrome Case Notes RT CTR *local* XR HAND RIGHT 3 OR MORE VIEWS Schedule Routine, Read Routine (OP Routine) 04/19/2024 1:38 PM OCCUPATIONAL SAFETY SPECIALIST Right hand pain SCAN - LABS Routine 02/21/2024 10:05 AM OCCUPATIONAL SAFETY SPECIALIST DEXA AXIAL SKELETON BONE DENSITY 1 OR MORE SITES Routine 12/11/2016 12:20 PM CDT from Last 3 Months or Most Recently Relevant to Health Maintenance Results * Lipid panel (05/15/2024 10:13 AM OCCUPATIONAL SAFETY SPECIALIST) Cholesterol 149 30 - 199 mg/dL Comment: [...] on 2017. Triglycerides 62 <=149 mg/dL REECE COLLADO Comment: Interpretive Data Ages < or = [...] mg/dL High: >160 mg/dL Calculated using the Rogers LDL-C estimating equation. This equation was implemented on 2023. Prior to this date LDL-C was estimated using the Friedewald equation. Literature References: 1. Expert Panel on Integrated Guidelines for Cardiovascular Health and Risk Reduction in Children and Adolescents. Pediatrics 2011;128:S213 2. NCEP Expert Panel. Circulation 2004;110:227 3. Rogers Bar. SHAKILA Cardiol. 2020 August 03;5(5):540-548. doi: 10.1001/[email or web address] [...] 3 REECE Blood 05/15/2024 10:1 3 AM OCCUPATIONAL SAFETY SPECIALIST 05/15/2024 10:54 AM OCCUPATIONAL SAFETY SPECIALIST Sultan Antwan Rudd MD LAB BLOOD ORDERABLES Final Re sult REECE [address] [facility] Department [place] [address] * XR Hand Right 3 or More Views (04/19/2024 1:38 PM OCCUPATIONAL SAFETY SPECIALIST) Anatomical Region Laterality Modality Upper Extremities, Hand Right Computed Radiography Narrative 04/19/2024 1:38 PM OCCUPATIONAL SAFETY SPECIALIST AP lateral and oblique x-rays of the right wrist on the mini C-arm show no obvious pathology Joseph Troy MD IMG XR PROCEDURES Final Result * SCAN - LABS (02/21/2024 10:05 AM OCCUPATIONAL SAFETY SPECIALIST) us Historical Provider Final Res ult * [...] Rodriguez M.D. AB: 02:14 PM 02:14 PM [facility] [EOD] Narrative 12/29/2016 2:17 PM CDT EXAMINATION: DXA Bone Density Examination (Hip, Radius, and Spine). HISTORY: 61-year-old post menopausal female, screening for osteoporosis. Current Height: 59.5 inches Maximum Height: 60 inches Weight: 195 pounds RISK FACTORS: Alcohol use. COMPARISON(S): January 30, 2013. CASUALTY INSURANCE CLAIM ADJUSTER/MODEL: [employer] S/[id number]. FINDINGS: AP lumbar spine L1-L4 Total BMD is 0.872 g/dj8L-nsfcx is -1.6 Most recent prior BMD was 0.906 g/cm2 There has been a 3.7% decrease in BMD in the lumbar spine. Dissimilar scan types or analysis methods precludes assessment for calculating a significant change. Left Hip Current Total BMD is 0.892 g/se7W-npvnz is -0.4 Most recent prior Total BMD was 0.903 g/cm2 There has been a 1.2% decrease in BMD in the left hip. Dissimilar scan types or analysis methods precludes assessment for calculating a significant change. Current femoral neck BMD is 0.659 g/hu2X-trxgl is -1.7 Left 1/3 radius Total BMD is 0.534 g/st0T-hjhga is -2.7 Bone mineral density in the left 1/3 radius was not measured on the prior examination Procedure Note Provider, MD Amy - 08/20/2020 EXAMINATION: DXA Bone Density Examination (Hip, Radius, and Spine). HISTORY: 61-year-old post menopausal female, screening for osteoporosis. Current Height: 59.5 inches Maximum Height: 60 inches Weight: 195 pounds RISK FACTORS: Alcohol use. COMPARISON(S): January 30, 2013. CASUALTY INSURANCE CLAIM ADJUSTER/MODEL: [employer] S/[id number]. FINDINGS: AP lumbar spine L1-L4 Total BMD is 0.872 g/rh5T-palnx is -1.6 Most recent prior BMD was 0.906 g/cm2 There has been a 3.7% decrease in BMD in the lumbar spine. Dissimilar scan types or analysis methods precludes assessment for calculating asignificant change. Left Hip Current Total BMD is 0.892 g/nv2H-gfkui is -0.4 Most recent prior Total BMD was 0.903 g/cm2 There has been a 1.2% decrease in BMD in the left hip. Dissimilar scantypes or analysis methods precludes assessment for calculating a significantchange. Current femoral neck BMD is 0.659 g/pz0T-feymo is -1.7 Left 1/3 radius Total BMD is 0.534 g/jn1H-pllnw is -2.7 Bone mineral density in the [...] Rodriguez M.D. AB: 02:14 PM 02:14 PM [facility] [EOD] Beni Li NP IMG DXA PROCEDURES Final Res ult from Last 3 Months or Most Recently Relevant to Health Maintenance Insurance [facility] Advance Directives For more information, please contact: [phone] * Full Code (Latest Code Status on File) Date Activated Date Inactivated Comments 07/20/2022 9:41 PM 07/21/2022 4:16 PM Care Teams Document Control Coordinator Relationship Specialty Start Date End Date Naila Person DO [facility] [place] [address] PCP - General 06/14/17 Sania Lopez DO [address] [place] [address] Referring Physician General Surgery 03/14/18 Sultan Antwan Rudd MD [address] [place] [address] Manager Installation Cardiovascular Disease 11/15/18 Mark Pierre MD [address] [place] [address] Medical Oncologist/[facility] [place] 03/08/19
--- OUTSIDE RECORDS SUMMARY | 2024-05-18 10:17 | XMS_ITS | Clinical Summary ---
Author Organization [facility] Address [facility] [place] [address] Care Team Providers Care Computer System Specialist Name Role Phone Naya, Naila Olive GRAY Primary Care Provider [phone] Allergies Active Allergy Reactions Criticality Noted Date Comments Peanut-Containing Drug Products Anaphylaxis,Unknown High 09/15/2018 Social History Tobacco Use Types Packs/Day Years Used Date Smoking Tobacco: Never Smokeless Tobacco: Never Alcohol Use Standard Drinks/Week Comments Yes 0 (1 standard drink = 0.6 oz pur e alcohol) Comments Unknown Sex and Gender Information Value Date Recorded Sex Assigned at Not on file Legal Sex Female 7:13 PM CDT Gender Identity Not on file Sexual Orientation Not on file Last Filed Vital Signs Vital Sign Reading Time Taken Comments Blood Pressure 183/106 03/23/2021 4:26 PM CERTIFIED INDOOR ENVIRONMENTALIST Pulse 90 03/23/2021 4:26 PM CERTIFIED INDOOR ENVIRONMENTALIST Temperature 36.4 C (97.6 F) 03/23/2021 4:26 PM CERTIFIED INDOOR ENVIRONMENTALIST Respiratory Rate 18 03/23/2021 4:26 PM CERTIFIED INDOOR ENVIRONMENTALIST Oxygen Saturation 98% 03/23/2021 4:26 PM CERTIFIED INDOOR ENVIRONMENTALIST Inhaled Oxygen Concentration - - Weight 88.2 kg (194 lb 7.1 oz) 03/23/2021 4:24 P M CERTIFIED INDOOR ENVIRONMENTALIST Height 172.7 cm (5' 8 ) 03/23/2021 4:30 PM CERTIFIED INDOOR ENVIRONMENTALIST Body Mass Index 29.57 03/23/2021 4:24 PM CERTIFIED INDOOR ENVIRONMENTALIST Plan of Treatment Health Maintenance Due Date Last Done Comments Colorectal Cancer Screening Colonoscopy (10 Years) 1953 Hepatitis C 11/11/1971 DTaP, Tdap and Td Vaccines (1 - Tdap) 1972 Mammogram Screening 1993 Zoster Vaccines (1 of 2) 11/11/2003 Annual Medicare Wellness Visit 2018 Dexa Scan (General) 2018 COVID-19 Vaccine ( season) 2023 01/29/2021, 06/11/2020 Influenza Adult (#1) 2024 01/18/2019, 01/20/2018, 01/12/2017, Additional history exists RSV Immunization or 60+ Years (1 - 1-dose 75+ series) 2028 Pneumococcal Vaccine: 65+ Years Completed 04/01/2020, 01/18/2019 Meningococcal B Vaccine Aged Out No l onger eligible based on patient's age to complete this topic Meningococcal Vaccine Aged Out No jaja nita eligible based on patient's age to complete this topic RSV Immunizations Under 20 Months Aged Out No longer eligible based on patient's age to complete this topic Insurance [facility] Care Teams Computer System Specialist Relationship Specialty Start Date End Date Naila Person DO [address] [place] [id number] PCP - General INTERNAL MEDICINE 03/23/21
--- OUTSIDE RECORDS SUMMARY | 2024-05-18 10:17 | XMS_ITS | Encounter Summary ---
Author Organization [facility] Care Team Providers Care Human Resources Consultant Name Role Phone Naila Person DO Primary Care Provider [phone] Sania Lopez DO Unavailable [phone] Sultan Antwan Rudd MD Unavailable [phone] Sultan Antwan Rudd MD Unavailable [phone] Mark Pierre MD Unavailable [phone] Encounter Details Date Type Department Care Team (Latest Contact Info) Description 06/04/2017 Orders Only [facility] ProviderAmy MD [address] [place] [address] Social History Tobacco Use Types Packs/Day Years Used Date Smoking Tobacco: Never Assessed Comments Unknown Sex and Gender Information Value Date Recorded Sex Assigned at Not on file Legal Sex Female 3:35 PM GARMENT LOOPER Gender Identity Not on file Sexual Orientation Not on file documented as of this encounter Plan of Treatment Not on file documented as of this encounter Procedures Procedure Name Priority Date/Time Associated Diagnosis Comments SCAN - LABS 06/09/2017 12:00 AM GARMENT LOOPER documented in this encounter Results * SCAN - LABS (06/09/2017 12:00 AM GARMENT LOOPER) Narrative 06/09/2017 12:00 AM GARMENT LOOPER Ordered by an unspecified provider. Historical Provider Final Res ult documented in this encounter Visit Diagnoses Not on filedocumented in this encounter Additional Health Concerns Infection Onset Date Last Indicated Resolved Time COVID19 Comment:01/19/2020 02/13/2020 02/12/2020 05/19/2021 3:05 AM Nuris JAY COVID: Suspected 05/11/2022 05/11/2022 05/11/2022 2:41 PM GARMENT LOOPER documented as of this encounter Care Teams Human Resources Consultant Relationship Specialty Start Date End Date Naila Person DO [address] [place] [address] PCP - General 06/14/17 [place] [address] [place] [address] Referring Physician General Surgery 03/14/18 Sultan Antwan Rudd MD [address] [place] [address] [address] Bicycle Service Technician Cardiovascular Disease 11/10/18 11/10/18 Sultan Antwan Rudd MD [address] [place] [address] [address] Bicycle Service Technician Cardiovascular Disease 11/15/18 Mark Pierre MD [address] [place] [address] [address] Medical Oncologist/[employer] [facility] 03/08/19 documented as of this encounter
--- OUTSIDE RECORDS SUMMARY | 2024-05-18 10:17 | XMS_ITS | Clinical Summary ---
Author Organization [facility] Address [address] [place] [address] Care Team Providers Care Generalist Name Role Phone Naila Person DO Primary Care Provider [phone] Source Comments [facility],non-owned Affiliates and Associated Physician Practices is amultiple site organization consisting of ambulatory clinics and hospital sitesin [place], [place], [place] and [place]. This disclosure is being madepursuant to the Care Everywhere program and may not contain all information available regarding this patient. Last updated 17.[facility] Allergies Active Allergy Reactions Criticality Noted Date Comments Peanut-Derived Anaphylaxis High 01/28/2019 Medications * Be aware that medications may not be up to date on this document. Alwaysverify current medications with the patient. Medication Sig Dispensed Refills Start Date End Date Status atorvastatin (LIPITOR) 20 MG tablet Take 20 mg by mouth at bedtime Active alendronate (FOSAMAX) 70 MG tablet Take 70 mg by mouth every 7 days before meal Take in morning with full glass of water on empty stomach and remain upright for 30 min Active famotidine (PEPCID) 20 MG tablet Take 40 mg by mouth at bedtime Active aspirin (ASPIRIN) 81 MG chew tablet Take 1 tablet by mouth once daily 01/29/2019 Active lisinopril (PRINIVIL; ZESTRIL) 10 MG tablet Take 1 tablet by mouth once daily 30 tablet 2 01/29/2019 Active omeprazole (PRILOSEC) 20 MG capsule Take 20 mg by mouth daily before breakfast Active calcium-vitamin D (OS-ELYSE 500 + D) 500-200 mg-unit tablet Take 1 tablet by mouth once daily Active carvedilol (COREG) 3.125 MG tablet Take 1 tablet by mouth 2 times daily with morning and evening meal 60 tablet 2 01/29/2019 Active guaiFENesin 200 MG/5ML Take 5 mL by mouth every 4 hours as needed 01/29/2019 Active furosemide (LASIX) 40 MG tablet Take 1 tablet by mouth once daily 30 tablet 2 01/30/2019 Active Active Problems Problem Noted Date Diagnosed Date Decompensated heart failure 01/29/2019 Fall on same level from slip ping, tripping and stumbling without subsequent striking against object, initial encounter 05/27/2013 Alcohol use with intoxication 05/27/2013 Resolved Problems Problem Noted Date Diagnosed Date Resolved Date SOB (shortness of breath) 01/27/2019 DOZIER (dyspnea on exertion) 01/27/2019 Acute hypoxemic respiratory failure 01/27/2019 01/29/2019 Acute decompensated heart failure 01/27/2019 01/29/2019 Social History Tobacco Use Types Packs/Day Years Used Date Smoking Tobacco: Former Smokeless Tobacco: Former Quit: 05/15/2009 Alcohol Use Standard Drinks/Week Comments Yes 0 (1 standard drink = 0.6 oz pur e alcohol) Sex and Gender Information Value Date Recorded Sex Assigned at Not on file Gender Identity Not on file Sexual Orientation Not on file Last Filed Vital Signs Vital Sign Reading Time Taken Comments Blood Pressure 104/62 01/29/2019 12:03 PM CDT Pulse 88 01/29/2019 12:03 PM CDT Temperature 36.7 C (98.1 F) 01/29/2019 12:03 PM CDT Respiratory Rate 18 01/29/2019 12:03 PM CDT Oxygen Saturation 97% 01/29/2019 12:03 PM CDT Inhaled Oxygen Concentration - - Weight 84.4 kg (186 lb) 01/29/2019 6:11 AM CDT Height 157.5 cm (5' 2 ) 01/27/2019 9:11 PM CDT Body Mass Index 34.02 01/27/2019 9:11 PM CDT Plan of Treatment Health Maintenance Due Date Last Done Comments BONE DENSITY TESTING 1955 COLOGUARD (AGES 45-75) - COLON CA SCREENING 1953 COLON MONITORING 1953 COLONOSCOPY - COLON CA SCREENING 1953 CT COLONOGRAPHY - COLON CA SCREENING 1955 Colorectal Cancer Screening 1953 FIT - COLON CA SCREENING 1953 FLEX SIG - COLON CA SCREENING 1955 MAMMOGRAM 1955 MEDICARE AWV 12 MONTHS 1955 HEPATITIS C SCREENING 11/06/1971 DTAP/TDAP/TD VACCINES (1 - Tdap) 1972 PNEUMOCOCCAL VACCINE 50+ (1 of 1 - PCV) 11/11/2003 ZOSTER VACCINE (1 of 2) 11/11/2003 Respiratory Syncytial Virus (RSV) Vaccine Pt: or over 60 yrs (1 - Risk 60-74 years 1-dose series) 2013 COVID-19 VACCINE (1 - 2023- season) 2023 INFLUENZA VACCINE (#1) 2023 8, 01/20/2018, 01/25/2017, Additional history exists DEPRESSION SCREENING 04/05/2024 HEPATITIS B VACCINE Aged Out No longe r eligible based on patient's age to complete this topic HIB VACCINE Aged Out No longer eligi ble based on patient's age to complete this topic HPV VACCINE Aged Out No longer eligi ble based on patient's age to complete this topic MENINGOCOCCAL (Group B) VACCINE Aged Out No longer eligible based on patient's age to complete this topic MENINGOCOCCAL VACCINE Aged Out No jaja nita eligible based on patient's age to complete this topic Advance Directives * Full Code (Latest Code Status on File) Date Activated Date Inactivated Comments 01/27/2019 6:03 AM 01/29/2019 4:47 PM Care Teams Generalist Relationship Specialty Start Date End Date Naila Person DO [address] [place] [address] PCP - General Internal Medicine 01/18/19
--- OUTSIDE RECORDS SUMMARY | 2024-05-18 10:18 | XMS_ITS | Referral Summary ---
Author Organization [facility] Address [address] [facility] [place] [address] Care Team Providers Care Business Consult Name Role Phone Naila Person Primary Care Provider [phone] Source Comments [facility],non-owned Affiliates and Associated Physician Practices is amultiple site organization consisting of ambulatory clinics and hospital sitesin [place], [place], [place] and [place]. This disclosure is being madepursuant to the Care Everywhere program and may not contain all information available regarding this patient. Last updated 17.[facility] Allergies Active Allergy Reactions Criticality Noted Date [...] Mass Index 34.02 01/27/2019 9:11 PM CDT Functional Status Functional Status Response Date of Assess ment Is person deaf or have serious hearing difficult y? No 01/29/2019 Is person blind or have serious difficulty seein g? No 01/29/2019 Does person have serious dif ficulty walking/climbing stairs? No 01/29/2019 Does person have difficulty dressing/bathing? No 01/29/2019 Does person have difficulty doing errands alone? No 01/29/2019 Cognitive Status Response Date of Assessm ent Does person have difficulty concentrating/remembering/making decisions? No 01/29/2019 Plan of Treatment Not on file Advance Directives * Full Code (Latest Code Status on File) Date Activated Date Inactivated Comments 01/27/2019 6:03 AM 01/29/2019 4:47 PM Care Teams Business Consult Relationship Specialty Start Date End Date Naila Person DO [address] [place] [address] PCP - General Internal Medicine 01/18/19
--- OUTSIDE RECORDS SUMMARY | 2024-05-18 10:18 | XMS_ITS | Continuity of Care Document ---
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 TELEPHONE E&M SERVICE BY A PHYSICIAN;5-1 0 MINUTES OF MEDICAL DISCUSSION [facility], [address], [place], [place], [address] , tel: [phone] [facility] Palpitations 3 Guillermo Beni. [address] [place] [address], [address], . tel: [phone] Referring Provider: Naila Schaefer, [address] [place] [address], [address] . tel:[phone] OFFICE JOFFS-MAA-LYP MARSHALL [facility], [address], [place], [place], [address] , tel: [phone] [facility] Chronic Conditions (chief complaint)Pattie ent encounter (chief complaint) Body mass index [BMI] 38.0-38.9, adultPrimary osteoarthritis of left kneeHypertensi ve heart and chronic kidney disease with heart failure and stage 1 through stage 4 chronic kidney disease, or unspecified chronic kidney diseaseChronic combined systolic (congestive) and diastolic (congestive) heart failureChronic kidney disease, stage 2 (mild)Secondar y hyperparathyro idism of renal originSecondar y pulmonary arterial hypertensionAt herosclerosis of aortaMorbid (severe) obesity due to excess calories 3 Lamont Sommer. [address] [place] [address], [place], [place], [id number] , [place]. tel: [phone] Referring Provider: Naila Schaefer, [address] [place] [address], [place], [address] . tel:[phone] OFFICE PWDVE-HJK-AHF ANDED [facility], [address], [place], [place], [address] , tel: [phone] [facility] LBP (chief complaint) Body mass index [BMI] 38.0-38.9, adultHistory of breast cancerChronic combined systolic (congestive) and diastolic (congestive) heart failureHyperte nsive heart disease with heart failureBack strain, initial encounter 2 Guillermo Bazan. [address] [place] [address], [place], [address], [place]. tel: [phone] Referring Provider: Naila Schaefer, [address] [place] [address], [place], [address] . tel:[phone] [facility], [address], [place], [place], [address] , tel: [phone] [facility] No Information 2 Naya Yoo. [address] [place] [address], [id number] , [place]. tel: [phone] Referring Provider: Naila Schaefer, [address] [place] [address], [place], [address] . tel:[phone] [facility], [address], [place], [place], [address] , tel: [phone] [facility] No Information 2 Naya Yoo. [address] [place] [address], [id number] , . tel: [phone] OFFICE LKRUW-OIP-AAJ [facility], [address], [place], [place], [address] , tel: [phone] [facility] Chronic Conditions (chief complaint)Pattie ent encounter (chief complaint) Body mass index [BMI] 39.0-39.9, adultImpaired glucose tolerance (oral)Hyperten sive heart disease with heart failureChronic combined systolic (congestive) and diastolic (congestive) heart failureHistory of breast cancerSecondar y hyperparathyro idism of renal originAge-rela ishaan osteoporosis without current pathological fractureURI, acutePost-ally pausalMorbid obesity due to excess calories 2 Miguelandriy Sommer. [address] [place] [address], [id number] , . tel: [phone] Referring Provider: Naila Schaefer, [address] [place] [address], [address] . tel:[phone] [facility], [address], [place], [place], [address] , [place] tel: [phone] [facility] Patient encounter (chief complaint) Exposure to COVID-19 virus 2 Naya Yoo. [address] [place] [address], [id number] , [place]. tel:[phone] Referring Provider: Naila Schaefer, [address] [place] [address], [address] . 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 [address] [place] [address], [id number] , . tel: [phone] Referring Provider: Naila Schaefer, [address] [place] [address], [address] . tel:[phone] [facility], [address], [place], [place], [address] , tel: [phone] [facility] No Information 2 Naya Yoo. [address] [place] [address], [id number] , . tel: [phone] Referring Provider: Naila Schaefer, [address] [place] [address], [address] . tel:[phone] TELEPHONE E&M SERVICE BY A PHYSICIAN;5-1 0 MINUTES OF MEDICAL DISCUSSION [facility], [address], [place], [place], [address] , tel: [phone] [facility] Essential (primary) hypertension 2 Lamont Sommer. [address] [place] [address], [id number] , . tel: [phone] Referring Provider: Naial Schaefer, [address] [place] [address], [address] . 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 [address] [place] [address], [id number] , [place]. tel: [phone] Referring Provider: Naila Schaefer, [address] [place] [address], [place], [address] . tel:[phone] [facility], [address], [place], [place], [address] , [place] tel: [phone] [facility] No Information 2 Naya Yoo. [address] [place] [address], [place], [place], [id number] , [place]. 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 [address] [place] [address], [address], [place]. tel: [phone] Referring Provider: Naila Schaefer, [address] [place] [address], [place], [address] . tel:[phone] OFFICE PGNBV-BRH-MKW ANDED [facility], [address], [place], [address] , [place] tel: [phone] [facility] low back pain (chief complaint) Body mass index [BMI] 38.0-38.9, adultAcute right-sided low back pain without sciatica 1 [place]. [address] [place], [place], [id number] , . tel: [phone] Referring Provider: Naila Schaefer, [address] [place] [address], [address] . tel:[phone] [facility], [address], [place], [place], [address] , tel: [phone] [facility] No Information 1 Naya Yoo. [address] [place] [address], [id number] , . tel: [phone] Referring Provider: Naila Schaefer, [address] [place] [address], [address] . tel:[phone] OFFICE CFGVQ-NBE-LHQ MARSHALL [facility], [address], [place], [place], [address] , tel: [phone] [facility] Chronic Conditions (chief complaint) Gastro-esophag eal reflux disease without esophagitisHyp ertensive heart disease with heart failureChronic combined systolic (congestive) and diastolic (congestive) heart failureHistory of breast cancerPostmast ectomy lymphedema syndromeBody mass index (BMI) 38.0-38.9, adultImpaired glucose tolerance (oral) 1 Naya Yoo. [address] [place] [address], [id number] , . tel: [phone] Referring Provider: Naila Schaefer, [address] [place] [address], [address] . tel:[phone] [facility], [address], [place], [place], [address] , [place] tel: [phone] [facility] Right anterior shoulder pain 1 Naya Yoo. [address] [place] [address], [id number] , . tel: [phone] Referring Provider: Naila Schaefer, [address] [place] [address], [address] . tel:[phone] [facility], [address], [place], [place], [address] , tel: [phone] [facility] supraclavicula r fossa fullness (chief complaint) Body mass index (BMI) 37.0-37.9, adultSupraclav icular fossa fullnessArthra lgia of multiple joints 1 Lamont Sommer. [address] [place] [address], [id number] , [place]. tel: [phone] Referring Provider: Naila Schaefer, [address] [place] [address], [address] . tel:[phone] [facility], [address], [place], [place], [address] , tel: [phone] [facility] No Information 1 Naya Yoo. [address] [place] [address], [id number] , [place]. tel: [phone] [facility], [address], [place], [place], [address] , tel: [phone] [facility] Chronic Conditions (chief complaint) Body mass index (BMI) 37.0-37.9, adultBilateral primary osteoarthritis of knee 1 Lamont Sommer. [address] [place] [address], [id number] , [place]. tel: [phone] Referring Provider: Naila Schaefer, [address] [place] [address], [address] . tel:[phone] OFFICE LNCHR-QIE-OOJ [facility], [address], [place], [place], [address] , tel: [phone] [facility] Chronic Conditions (chief complaint) Hypertensive heart disease with heart failureChronic combined systolic (congestive) and diastolic (congestive) heart failureGastro- esophageal reflux disease without esophagitisCou ghBilateral primary osteoarthritis of kneeBody mass index (BMI) 37.0-37.9, adult 1 Naya Yoo. [address] [place] [address], [id number] , . tel: [phone] Referring Provider: Naila Schaefer, [address] [place] [address], [address] . tel:[phone] OFFICE [facility]HTC[facility]CND[facility]EVR [facility], [address], [place], [place], [address] , tel: [phone] [facility] Chronic Conditions (chief complaint) Hypertensive heart disease with chronic combined systolic and diastolic congestive heart failureChronic combined systolic (congestive) and diastolic (congestive) heart failureOther secondary pulmonary hypertensionAt herosclerosis of aortaSecondary hyperparathyro idism of renal originHistory of breast cancerMorbid (severe) obesity due to excess caloriesAge-re lated osteoporosis without current pathological fractureGastro esophageal reflux disease without esophagitisBod y mass index (BMI) 37.0-37.9, adult 1 Naya Yoo. [address] [place] [address], [id number] , . tel: [phone] Referring Provider: Naila Schaefer, [address] [place] [address], [address] . tel:[phone] [facility], [address], [place], [place], [address] , tel: [phone] [facility] Dysphagia, unspecified type 1 Naya Yoo. [address] [place] [address], [id number] , . tel: [phone] OFFICE VDIVG-AXM-QXB [facility], [address], [place], [place], [address] , tel: [phone] [facility] GERD (chief complaint) Body mass index (BMI) 36.0-36.9, adultGastroeso phageal reflux disease without esophagitis 0 Miguel Ros. [address] [place] [address], [id number] , . tel: [phone] Referring Provider: Naila Schaefer, [address] [place] [address], [address] . tel:[phone] [facility], [address], [place], [place], [address] , tel: [phone] [facility] No Information 0 Guillermo Bazan. [address] [place] [address], [address], . tel: [phone] OFFICE ZQNAK-INA-OFM MARSHALL [facility], [address], [place], [place], [address] , tel: [phone] [facility] Chronic Conditions (chief complaint) Hypertensive heart disease with chronic combined systolic and diastolic congestive heart failureChronic combined systolic (congestive) and diastolic (congestive) heart failureAge-rel ated osteoporosis without current pathological fractureOther specified postprocedural statesBody mass index (BMI) 36.0-36.9, adult 0 Naya Yoo. [address] [place] [address], [id number] , [place]. tel: [phone] Referring Provider: Naila Scheafer, [address] [place] [address], [address] . tel:[phone] [facility], [address], [place], [place], [address] , tel: [phone] Care Management No Information 0 Naya Yoo. [address] [place] [address], [id number] , [place]. tel: [phone] Referring Provider: Naila Schaefer, [address] [place] [address], [address] . tel:[phone] [facility], [address], [place], [place], [address] , tel: [phone] [facility] Headache above the eye region 0 Naya Yoo. [address] [place] [address], [id number] , . tel: [phone] OFFICE IGYIM-APX-TAN [facility], [address], [place], [place], [address] , tel: [phone] [facility] Chronic Conditions (chief complaint) Body mass index (BMI) 36.0-36.9, adultPrimary osteoarthritis of left hip Nov- 3- 0 Lamont Sommer. [address] [place] [address], [id number] , [place]. tel: [phone] Referring Provider: Naila Schaefer, [address] [place] [address], [address] . tel:[phone] OFFICE WWJGG-BRU-PMP [facility], [address], [place], [place], [address] , tel: [phone] [facility] Chronic Conditions (chief complaint) HeadachePerson al history of malignant neoplasm of breastOther specified postprocedural statesBody mass index (BMI) 35.0-35.9, adult Oct-3 0-202 0 Naya Yoo. [address] [place] [address], [id number] , [place]. tel: [phone] Referring Provider: Naila Schaefer, [address] [place] [address], [address] . tel:[phone] OFFICE HIVMH[facility]WYQ[facility]VIC [facility], [address], [place], [place], [address] , tel: [phone] [facility] Chronic Conditions (chief complaint) Hypertensive heart disease with chronic combined systolic and diastolic congestive heart failureChronic combined systolic (congestive) and diastolic (congestive) heart failureAge-rel ated osteoporosis without current pathological fracturePain in left hipCarpal tunnel syndrome, unspecified upper limbBody mass index (BMI) 35.0-35.9, adult Oct- 0 Naya Yoo. [address] [place] [address], [id number] , [place]. tel: [phone] Referring Provider: Naila Schaefer, [address] [place] [address], [place], [address] . tel:[phone] OFFICE JGTTF[facility]YLU[facility]PTX [facility], [address], [place], [place], [address] , tel: [phone] [facility] Chronic Conditions (chief complaint) Hypertensive heart disease with chronic combined systolic and diastolic congestive heart failureChronic combined systolic (congestive) and diastolic (congestive) heart failureHistory of breast cancerShortnes s of breathMorbid (severe) obesity due to excess caloriesSecond porsha hyperparathyro idism of renal originLymphede ma of right upper extremityAther osclerosis of aortaOsteoporo sis without current pathological fracture, unspecified osteoporosis typeOther secondary pulmonary hypertensionBo dy mass index (BMI) 35.0-35.9, adult Oct- 0 Naya Yoo. [address] [place] [address], [id number] , [place]. tel: [phone] Referring Provider: Naila Schaefer, [address] [place] [address], [place], [address] . tel:[phone] OFFICE TGXMO-LXG-RJJ [facility], [address], [place], [place], [address] , [place] tel: [phone] [facility] abdominal pain (chief complaint) Body mass index (BMI) 35.0-35.9, adultLower abdominal pain 0 [place]. [address] [place] [address], [id number] , [place]. tel: [phone] Referring Provider: Naila Schaefer, [address] [place] [address], [place], [address] . tel:[phone] [facility], [address], [place], [place], [address] , tel: [phone] [facility] ear wash (chief complaint) Impacted cerumen, left ear Roge- 0-202 0 Naya Yoo. [address] [place] [address], [id number] , . tel: [phone] Referring Provider: Naila Schaefer, [address] [place] [address], [address] . tel:[phone] [facility], [address], [place], [place], [address] , tel: [phone] [facility] Ventricular premature depolarization - 0 Naya Yoo. [address] [place] [address], [id number] , [place]. tel: [phone] OFFICE QWTIQ-TVW-CMY ANDED [facility], [address], [place], [place], [address] , tel: [phone] [facility] RLQ pain (chief complaint) Body mass index (BMI) 33.0-33.9, adultAbdominal pain, RLQ Apr-2 0-202 0 [place]. [address] [place] [address], [id number] , [place]. tel: [phone] Referring Provider: Naila Schaefer, [address] [place] [address], [address] . tel:[phone] TELEPHONE E&M BY A PHYSICIAN; 11-20 MINUTES [facility], [address], [place], [place], [address] , tel: [phone] [facility] No Information Jun- 0 Lamont Sommer. [address] [place] [address], [id number] , . tel: [phone] Referring Provider: Naila Schaefer, [address] [place] [address], [address] . tel:[phone] [facility], [address], [place], [place], [address] , tel: [phone] [facility] Hypertensive chronic kidney disease w stg 1-4/unsp chr kdny Jun-0 0 Naya Yoo. [address] [place] [address], [id number] , [place]. tel: [phone] [facility], [address], [place], [place], [address] , tel: [phone] [facility] Bilateral hand painPain in left hand 0 Naya Yoo. [address] [place] [address], [id number] , [place]. tel: [phone] OFFICE PFIWE-HVP-PSN MARSHALL [facility], [address], [place], [address] , tel: [phone] [facility] Chronic Conditions (chief complaint) Body mass index (BMI) 34.0-34.9, adultHistory of breast cancerHyperten sive heart disease with chronic combined systolic and diastolic congestive heart failureChronic combined systolic (congestive) and diastolic (congestive) heart failureMaligna nt neoplasm of nipple of breast in female, unspecified laterality 201 9 Lamont Sommer. [address] [place] [address], [id number] , . tel: [phone] Referring Provider: Naila Schaefer, [address] [place] [address], [address] . 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 [address] [place] [address], [id number] , [place]. tel: [phone] [facility], [address], [place], [place], [address] , tel: [phone] [facility] History of breast cancer 9 Naya Yoo. [address] [place] [address], [id number] , [place]. tel: [phone] [facility], [address], [place], [place], [address] , tel: [phone] [facility] Gaseous distention of intestine determined by X-ray Naya Yoo. [address] [place] [address], [id number] , [place]. tel: [phone] Transitional Care- First 7 Days Of Discharge [facility], [address], [place], [place], [address] , tel: [phone] [facility] Chronic Conditions (chief complaint)othe r (chief complaint) Body mass index (BMI) 36.0-36.9, adultHypertens lela heart disease with chronic combined systolic and diastolic congestive heart failureChronic combined systolic (congestive) and diastolic (congestive) heart failure 9 [place]. [address] [place] [address], [id number] , [place]. tel: [phone] Referring Provider: Naila Schaefer, [address] [place] [address], [address] . tel:[phone] OFFICE KLGHZ-IYG-RZV MARSHALL [facility], [address], [place], [place], [address] , [place] tel: [phone] [facility] Chronic Conditions (chief complaint) CoughBody mass index (BMI) 37.0-37.9, adultGastroeso phageal reflux disease without esophagitisHis tory of breast cancerHyperten sive heart disease with chronic combined systolic and diastolic congestive heart failureChronic combined systolic (congestive) and diastolic (congestive) heart failure 9 Guillermo Bazan. [address] [place] [address], [place], [address], [place]. tel: [phone] Referring Provider: Naila Schaefer, [address] [place] [address], [address] . tel:[phone] OFFICE Y[facility]IVK[facility]FQE[facility]TUH [facility]Un[facility], [address], [place], [place], [address] , tel: [phone] [facility] shortness of breath (chief complaint) Body mass index (BMI) 37.0-37.9, adultMild shortness of breath 9 [place]. [address] [place] [address], [place], [place], [id number] , [place]. tel: [phone] Referring Provider: Naila Schaefer, [address] [place] [address], [place], [address] . tel:[phone] [facility], [address], [place], [place], [address] , tel: [phone] [facility] No Information 9 Naya Yoo. [address] [place] [address], [id number] , [place]. tel: [phone] Referring Provider: Naila Schaefer, [address] [place] [address], [place], [address] . tel:[phone] OFFICE IAMWL-TLR-ISW [facility], [address], [place], [place], [address] , tel: [phone] [facility] Chronic Conditions (chief complaint) Body mass index (BMI) 37.0-37.9, adultCommunity acquired pneumonia of right lower lobe of lungOsteoporos is without current pathological fracture, unspecified osteoporosis typeHypertensi ve heart disease with chronic combined systolic and diastolic congestive heart failureChronic combined systolic (congestive) and diastolic (congestive) heart failureOther secondary pulmonary hypertensionPa lpitation 9 Guillermo Bazan. [address] [place], [address], . tel: [phone] Referring Provider: Naila Schaefer, [address] [place] [address], [address] . tel:[phone] OFFICE QYEOO-QPI-BBB IMAL [facility], [address], [place], [place], [address] , tel: [phone] [facility] Wheezing (chief complaint) WheezingBody mass index (BMI) 38.0-38.9, adultPalpitati on 0 9 Naya Yoo. [address] [place] [address], [id number] , [place]. tel: [phone] Referring Provider: Naila Schaefer, [address] [place] [address], [address] . tel:[phone] [facility], [address], [place], [place], [address] , tel: [phone] [facility] Chest pain, unspecified type 9 Naya Yoo. [address] [place] [address], [id number] , [place]. tel: [phone] [facility], [address], [place], [place], [address] , tel: [phone] [facility] Age-related nuclear cataract, unspecified laterality 9 Naya Yoo. [address] [place] [address], [id number] , [place]. tel: [phone] [facility], [address], [place], [place], [address] , tel: [phone] [facility] Impacted cerumen, bilateralBody mass index (BMI) 38.0-38.9, adult 2 9 Naya Yoo. [address] [place] [address], [id number] , [place]. tel: [phone] Referring Provider: Naila Schaefer, [address] [place] [address], [address] . tel:[phone] [facility], [address], [place], [place], [address] , tel: [phone] [facility] Stage 2 chronic kidney diseaseLymphed lesley of right upper extremity 9 Naya Yoo. [address] [place] [address], [id number] , . tel: [phone] Referring Provider: Naila Schaefer, [address] [place] [address], [address] . tel:[phone] [facility], [address], [place], [place], [address] , tel: [phone] [facility] Stage 2 chronic kidney disease 9 Naya Yoo. [address] [place] [address], [id number] , . tel: [phone] Referring Provider: Naila Schaefer, [address] [place] [address], [address] . 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 [address] [place] [address], [id number] , . tel: [phone] [facility], [address], [place], [place], [address] , tel: [phone] [facility] Chronic Conditions (chief complaint) Morbid (severe) obesity due to excess caloriesHypert ensive heart and renal disease with CHFChronic diastolic heart failureStage 2 chronic kidney diseaseSeconda ry hyperparathyro idism of renal originHistory of breast cancerGastroes ophageal reflux disease without esophagitisAth erosclerosis of aortaChronic pain of left kneeLymphedema of right upper extremityBody mass index (BMI) 40.0-44.9, adult 9 Naya Naila. [address] [place] [address], [id number] , [place]. tel: [phone] Referring Provider: Naila Schaefer, [address] [place] [address], [address] . tel:[phone] [facility], [address], [place], [place], [address] , tel: [phone] [facility] Chest pain, unspecified type Naya Yoo. [address] [place] [address], [id number] , [place]. tel: [phone] Referring Provider: Niala Schaefer, [address] [place] [address], [address] . 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 [address] [place] [address], [id number] , [place]. tel: [phone] [facility], [address], [place], [place], [address] , tel: [phone] [facility] Chronic Conditions (chief complaint) Body mass index (BMI) 38.0-38.9, adultHypertens lela renal diseaseStage 3 chronic kidney diseaseChronic pain of left kneeGastroesop hageal reflux disease without esophagitisHis tory of breast cancerSecondar y hyperparathyro idism of renal origin 8 Guillermo Bazan. [address] [place] [address], [address], [place]. tel: [phone] Referring Provider: Naila Schaefer, [address] [place] [address] [place], [address] . tel:[phone] [facility], [address], [place], [place], [address] , tel: [phone] [facility] Other congestive heart failure 8 Nayaclint Yoo. [address] [place] [address], [id number] , [place]. tel: [phone] [facility], [address], [place], [place], [address] , tel: [phone] [facility] History of breast cancer 8 Naya Yoo. [address] [place] [address], [id number] , [place]. tel: [phone] [facility], [address], [place], [place], [address] , tel: [phone] [facility] Other congestive heart failure 8 Naya Naila. [address] [place] [address], [id number] , [place]. tel: [phone] Referring Provider: Naila Schaefer, [address] [place] [address], [place], [address] . tel:[phone] [facility], [address], [place], [place], [address] , tel: [phone] [facility] Hypertensive chronic kidney disease with stage 1 through stage 4 chronic kidney disease, or unspecified chronic kidney diseaseChronic kidney disease, stage 3 (moderate)Seco ndary hyperparathyro idismHistory of breast cancerAtherosc lerosis of aortaMorbid obesity due to excess caloriesOther inflammatory and toxic neuropathyOthe r congestive heart failure Jun-0 2-201 8 Naya Yoo. [address] [place] [address], [id number] , [place]. tel: [phone] Referring Provider: Naila Schaefer, [address] [place] [address], [place], [address] . tel:[phone] [facility], [address], [place], [place], [address] , tel: [phone] [facility] History of breast cancer Nayaclint Yoo. [address] [place] [address], [id number] , [place]. tel: [phone] [facility], [address], [place], [place], [address] , tel: [phone] [facility] Acquired absence of left breast and nipple Nayaclint Yoo. [address] [place] [address], [id number] , [place]. tel: [phone] [facility], [address], [place], [place], [address] , tel: [phone] [facility] No Information [facility]. [address] [place] [address], [address], [place]. tel: [phone] Referring Provider: Naila Schaefer, [address] [place] [address], [address] . tel:[phone] [facility], [address], [place], [place], [address] , tel: [phone] [facility] Hematuria, unspecified type Guillermo Gaylin. [address] [place] [address], [address], [place]. tel: [phone] Referring Provider: Naila Schaefer, [address] [place] [address], [address] . tel:[phone] [facility], [address], [place], [place], [address] , tel: [phone] [facility] Hypertensive chronic kidney disease with stage 1 through stage 4 chronic kidney disease, or unspecified chronic kidney diseaseChronic kidney disease, stage 3 (moderate)Hist ory of breast cancerSecondar y hyperparathyro idi Guillermo Bazan. [address] [place] [address], [address], [place]. tel: [phone] Referring Provider: Naila Schaefer, [address] [place] [address], [address] . tel:[phone] [facility], [address], [place], [place], [address] , [place] tel: [phone] [facility] Chronic gastritis with bleeding, unspecified gastritis typeAcute gastritis without hemorrhage, unspecified gastritis type Deirdre Boston. [address] [place] [address], [address], [address], [place]. tel: [phone] Referring Provider: Ludy Muir, [address] [place] [address] [address] [facility], [place], [place], [facility]. tel:[phone] [facility], [address], [place], [place], [address] , tel: [phone] [facility] Chronic pain of right kneeChronic pain of left knee Deirdre Boston. [address] [place] [address], [address], [address], [place]. tel: [phone] Referring Provider: Ludy Muir, [address] [place] [address] [address] [facility], [place], [place], [facility]. tel:[phone] [facility], [address], [place], [place], [address] , tel: [phone] [facility] Hypertensive chronic kidney disease with stage 1 through stage 4 chronic kidney disease, or unspecified chronic kidney diseaseChronic kidney disease, stage 3 (moderate)Hist ory of breast cancerPeripher al neuropathy due to chemotherapyMo rbid obesity due to excess caloriesAthero sclerosis of aortaArthritis of right shoulder region Naya Yoo. [address] [place] [address], [id number] , [place]. tel: [phone] Referring Provider: Naila Schaefer, [address] [place] [address], [address] . tel: [facility], [address], [place], [place], [address] , tel: [phone] [facility] Right shoulder pain, unspecified chronicity 7 Naya Yoo. [address] [place] [address], [id number] , [place]. tel: [phone] [facility], [address], [place], [place], [address] , tel: [phone] [facility] Neck pain 7 Naya Yoo. [address] [place] [address], [id number] , . tel: [phone] [facility], [address], [place], [place], [address] , tel: [phone] [facility] Atherosclerosi s of aorta 6 [place] Naila. [address] [place] [address], [id number] , [place]. tel: [phone] Referring Provider: Naila Schaefer, [address] [place] [address], [address] . tel: [facility], [address], [place], [place], [address] , tel: [phone] [facility] Impacted cerumen, left ear 6 Naya Yoo. [address] [place] [address], [id number] , [place]. tel: [phone] Referring Provider: Naila Schaefer, [address] [place] [address], [address] . tel:[phone] [facility], [address], [place], [place], [address] , tel: [phone] [facility] Morbid obesity due to excess caloriesHypert ensive chronic kidney disease with stage 1 through stage 4 chronic kidney disease, or unspecified chronic kidney diseaseChronic kidney disease, stage 3 (moderate)Hist ory of breast cancerAtherosc lerosis of aortaImpacted cerumen of both ears 6 Naya Yoo. [address] [place] [address], [id number] , . tel: [phone] Referring Provider: Naila Schaefer, [address] [place] [address], [place], [address] . tel:[phone] [facility], [address], [place], [place], [address] , tel: [phone] [facility] Chronic kidney disease, stage 3 (moderate)Hype rtensive chronic kidney disease with stage 1 through stage 4 chronic kidney disease, or unspecified chronic kidney diseaseAtheros clerosis of aorta Jul-0 6 Naya Yoo. [address] [place] [address], [id number] , [place]. tel: [phone] Referring Provider: Naila Schaefer, [address] [place] [address], [place], [address] . tel:[phone] [facility], [address], [place], [place], [address] , [place] tel: [phone] [facility] History of breast cancerHyperten sive chronic kidney disease with stage 1 through stage 4 chronic kidney disease, or unspecified chronic kidney diseaseChronic kidney disease, stage 3 (moderate)Athe rosclerosis of aortaPeriphera l neuropathy due to chemotherapyEn counter for screening colonoscopy 6 Naya Yoo. [address] [place] [address], [id number] , [place]. tel: [phone] Referring Provider: Naila Schaefer, [address] [place] [address], [place], [address] . tel:[phone] [facility], [address], [place], [place], [address] , tel: [phone] [facility] Acquired absence of left breast and nipple Feb-0 2 6 Naya Yoo. [address] [place] [address], [place], [id number] , [place]. tel: [phone] [facility], [address], [place], [place], [address] , tel: [phone] [facility] Malignant neoplasm of nipple of breast in female, unspecified lateralityHype rtensive chronic kidney disease with stage 1 through stage 4 chronic kidney disease, or unspecified chronic kidney diseaseChronic kidney disease, stage 3 (moderate)Head ache, unspecified headache type 5 Guillermojoelle Bazan. [address] [place] [address], [address], [place]. tel: [phone] Referring Provider: Naila Schaefer, [address] [place] [address], [address] . 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 [address] [place] [address], [id number] , [place]. tel: [phone] [facility], [address], [place], [place], [address] , tel: [phone] [facility] Essential (primary) hypertension 5 Naya Yoo. [address] [place] [address], [id number] , [place]. tel: [phone] Referring Provider: Naila Schaefer, [address] [place] [address], [address] . tel:[phone] [facility], [address], [place], [address] , tel: [phone] [facility] Brain aneurysm 5 Guillermojoelle Bazan. [address] [place] [address], [address], [place]. tel: [phone] [facility], [address], [place], [address] , [place] tel: [phone] [facility] Brain aneurysm Naya Yoo. [address] [place] [address], [id number] , [place]. tel: [phone] [facility], [address], [place], [address] , tel: [phone] [facility] Chronic kidney disease, stage 3 (moderate)Hype rtensive chronic kidney disease with stage 1 through stage 4 chronic kidney disease, or unspecified chronic kidney diseaseDizzine ssHeadache, unspecified headache typeHistory of breast cancer, known activeBrain aneurysm 5 Guillermo Francomira. [address] [place] [address], [address], . tel: [phone] Referring Provider: Naila Schaefer, [address] [place] [address], [address] . tel:[phone] [facility], [address], [place], [place], [address] , tel: [phone] [facility] Encounter for immunization 5 Naya Yoo. [address] [place] [address], [id number] , [place]. tel: [phone] Referring Provider: Naila Schaefer, [address] [place] [address], [address] . tel:[phone] [facility], [address], [place], [place], [address] , [place] tel: [phone] [facility] Acute pancreatitis 5 Naya Yoo. [address] [place] [address], [id number] , [place]. tel: [phone] Referring Provider: Naila Schaefer, [address] [place] [address], [address] . tel:[phone] [facility], [address], [place], [address] , tel: [phone] [facility] Hypertensive kidney disease, unspecified, with chronic kidney diseaseChronic kidney disease, Stage III (moderate)Shyla min D deficiencyPap smear for cervical cancer screeningPerip heral neuropathy due to chemotherapyAd v eff antineoplastic Dec- 5 Naya Yoo. [address] [place] [address], [id number] , [place]. tel: [phone] Referring Provider: Naila Schaefer, [address] [place] [address], [address] . tel:[phone] [facility], [address], [place], [place], [address] , tel: [phone] [facility] Leg pain 2 5 Naya Yoo. [address] [place] [address], [id number] , [place]. tel: [phone] Referring Provider: Naila Schaefer, [address] [place] [address], [address] . tel:[phone] [facility], [address], [place], [place], [address] , tel: [phone] [facility] Secondary malignant neoplasm of lymph nodesOsteopeni aVitamin D deficiencyHype rtensionAortic atherosclerosi sColon cancer screening 5 Naya Yoo. [address] [place] [address], [id number] , [place]. tel: [phone] Referring Provider: Naila Schaefer, [address] [place] [address], [address] . tel:[phone] [facility], [address], [place], [place], [address] , tel: [phone] [facility] Encounter for screening for malignant neoplasm of rectum 5 Naya Yoo. [address] [place] [address], [id number] , [place]. tel: [phone] Referring Provider: Naila Schaefer, [address] [place] [address], [address] . tel: [facility], [address], [place], [place], [address] , tel: [phone] [facility] Breast cancerHyperten sionImmunosupp ressed statusSecondar y malignant neoplasm of lymph nodesMorbid obesityOther and unspecified hyperlipidemia 5 Naya Yoo. [address] [place] [address], [id number] , . tel: [phone] Referring Provider: Naila Schaefer, [address] [place] [address], [place], [address] . tel: [facility], [address], [place], [place], [address] , tel: [phone] [facility] HEMATURIA NOS 0 5 Naya Yoo. [address] [place] [address], [id number] , . tel: [phone] Referring Provider: Naila Schaefer, [address] [place] [address], [address] . tel:[phone] [facility], [address], [place], [place], [address] , tel: [phone] [facility] Breast cancerHyperten sionVitamin D deficiencyMorb id obesity 2 5 Naya Yoo. [address] [place] [address], [id number] , . tel: [phone] Referring Provider: Naila Schaefer, [address] [place] [address], [place], [address] . tel:[phone] [facility], [address], [place], [place], [address] , tel: [phone] [facility] No Information 4 Naya Yoo. [address] [place] [address], [id number] , [place]. tel: [phone] Referring Provider: Naila Schaefer, [address] [place] [address], [place], [address] . tel:[phone] [facility], [address], [place], [address] , [place] tel: [phone] [facility] Hypertension 4 Naya Yoo. [address] [place] [address], [id number] , [place]. tel: [phone] Referring Provider: Naila Schaefer, [address] [place] [address], [place], [address] . tel:[phone] [facility], [address], [place], [place], [address] , tel: [phone] [facility] Knee pain, right 4 Naya Yoo. [address] [place] [address], [id number] , [place]. tel: [phone] [facility], [address], [place], [place], [address] , [place] tel: [phone] [facility] Knee pain, right 4 Naya Yoo. [address] [place] [address], [id number] , [place]. tel: [phone] [facility], [address], [place], [place], [address] , [place] tel: [phone] [facility] Breast cancerVitamin D deficiencyOthe r and unspecified hyperlipidemia Hypertension 4 Naya Mederosa. [address] [place] [address], [id number] , [place]. tel: [phone] Referring Provider: Naila Schaefer, [address] [place] [address], [place], [address] . tel:[phone] [facility], [address], [place], [address] , tel: [phone] [facility] Uncontrolled hypertensionWe ight gainVitamin D deficiencyBrea st copper springs hospitalFacial abrasion 0 4 [place] Naila. [address] [place] [address], [id number] , . tel: [phone] Referring Provider: Naila Schaefer, [address] [place] [address], [address] . tel: [facility], [address], [place], [address] , [place] tel: [phone] [facility] HEMATURIA NOS 4 Naya Yoo. [address] [place] [address], [id number] , [place]. tel: [phone] [facility], [address], [place], [address] , tel: [phone] [facility] Hematuria 4 Naya Yoo. [address] [place] [address], [id number] , [place]. tel: [phone] Referring Provider: Naila Schaefer, [address] [place] [address], [address] . tel: [facility], [address], [place], [place], [address] , tel: [phone] [facility] DermatitisHype rtensionOsteop enia 3 Naya Yoo. [address] [place] [address], [id number] , [place]. tel: [phone] Referring Provider: Naila Schaefer, [address] [place] [address], [address] . tel:[phone] [facility], [address], [place], [address] , tel: [phone] [facility] Screening examination for pulmonary tuberculosis 6 3 Naya Yoo. [address] [place] [address], [id number] , . tel: [phone] Referring Provider: Naila Schaefer, [address] [place] [address], [address] . tel:[phone] [facility], [address], [place], [place], [address] , tel: [phone] [facility] Chronic kidney disease, Stage III (moderate)Hype rtensive kidney disease, unspecified, with chronic kidney diseaseOther and unspecified hyperlipidemia Malignant neoplasm of breast (female), unspecified siteNEED FOR PROPHYLACTIC VACCINATION AND INOCULATION, INFLUENZA 3 Naya Yoo. [address] [place] [address], [id number] , [place]. tel: [phone] Referring Provider: Naila Schaefer, [address] [place] [address], [address] . tel:[phone] [facility], [address], [place], [place], [address] , tel: [phone] [facility] Acute pancreatitisMa lignant neoplasm of breast (female), unspecified siteHypertensi ve renal diseaseChronic kidney disease (CKD), stage III (moderate) 3 Naya Yoo. [address] [place] [address], [id number] , . tel: [phone] Referring Provider: Naila Schaefer, [address] [place] [address], [address] . tel:[phone] [facility], [address], [place], [place], [address] , tel: [phone] [facility] Impacted cerumen 3 Naya Yoo. [address] [place] [address], [id number] , . tel: [phone] Referring Provider: Naila Schaefer, [address] [place] [address], [address] . tel:[phone] [facility], [address], [place], [address] , [place] tel: [phone] [facility] Breast cancerHyperten sionHyperlipid emia LDL goal < 100 8201 3 Naya Yoo. [address] [place] [address], [id number] , [place]. tel: [phone] Referring Provider: Naila Schaefer, [address] [place] [address], [place], [address] . tel:[phone] Family History Family Member Type Diagnosis Age At Onset Father Problem (finding) Sister Problem (finding) hypertension Mother Problem (finding) Hypertension, CHF (Caus e Of ) Father Problem (finding) CHF, Hypertension (Caus e Of ) Brother Problem (finding) renal failure syndrome Sister Problem (finding) Scleroderma (Cause Of D eath) Sister Problem (finding) Problem (finding) Sister Problem (finding) MVA (Cause Of ) Mother Problem (finding) Sister Problem (finding) Cerebral aneurysm Immunizations Vaccine Date Status Comments Fluzone High-Dose Trivalent, preservative free administered Source: New Immuniza tion Record Fluzone High-Dose, high dose , preservative free administered Source: New Immuniza tion Record Fluzone High-Dose, high dose , preservative free administered Source: New Immuniza tion Record Moderna (Low Dose) COVID19 Vaccine, 0.25mL per dose, booster dose administered Note: [facility] ; Source: Other Provider SHINGRIX (Zoster vaccine recombinant, adjuvanted) administered Note: [facility] ; Desire rce: Other Provider SHINGRIX (Zoster vaccine recombinant, adjuvanted) administered Note: [facility] ; Desire rce: Other Provider Moderna (Low Dose) COVID19 Vaccine, 0.25mL per dose, booster dose administered Note: [facility] ; Source : Other Provider Fluzone High-Dose, high dose , preservative free administered Source: New Immuniza tion Record J&J COVID/Adenovirus Vaccine [id number] viral particles/0.5mL administered Source: Oth er Provider Pneumococcal polysaccharide PPV23 administered Source: New Immuniza tion Record Fluzone High-Dose, high dose , preservative free administered Note: [facility] ; Source: Other Provider Fluzone High-Dose, high dose , preservative free administered Source: New Immuniza tion Record Pneumococcal conjugate PCV 13 administere d Source: New Immunization Record Fluzone High-Dose, high dose , preservative free administered Source: New Immuniza tion Record Tdap administered Source: New Imm unization Record Fluzone Quad , spli t virus, 0.5mL dosage administered Source: New Immuniza tion Record influenza, injectable, quadrivalent, (3 years or older) administered Source: New Immuniza tion Record influenza, injectable, quadrivalent, (3 years or older) administered Source: New Immuniza tion Record Influenza, injectable, quadrivalent, preservative free, 3 yrs or older administered Source: New Immuniz ation Record Fluzone administered Note: [facility] [id number] ; Source: New Immunization Record Payers Payer name Insurance type Covered republican ID Authoriza tion(s) [employer] MB [id number] [employer] MB [id number] [employer] MB [id number] [employer] MB [id number] [employer] MB [id number] [employer] MB [id number] [employer] MB [id number] [employer] MB [id number] [facility] [id number] [employer] MB [id number] [facility] [id number] [employer] MB [id number] [facility] [id number] [employer] MB [id number] [facility] [id number] [employer] MB [id number] [facility] [id number] [employer] MB [id number] [facility] [id number] Social History Type Description Quantity Date Captured Comments Alcohol Use Details Unknown Caffeine Use Details Unknown Tobacco Use Status No Information Smoking Status No Information Sex Female Gender Identity Female Chief Complaint And Reason For Visit No Information Reason For Referral Reason For Referral No Information Plan Of Treatment Date Type Action Status Goal Dietary manageme nt education, guidance, and counseling completed Goal Dietary manageme nt education, guidance, and counseling completed Goal Dietary manageme nt education, guidance, and counseling completed Goal Dietary manageme nt education, guidance, and counseling completed Goal Dietary manageme nt education, guidance, and counseling completed Goal Dietary manageme nt education, guidance, and counseling completed Goal Dietary manageme nt education, guidance, and counseling completed Goal Dietary manageme nt education, guidance, and counseling completed Goal Dietary manageme nt education, guidance, and counseling completed Goal Dietary manageme nt education, guidance, and counseling completed Goal Dietary manageme nt education, guidance, and counseling completed Goal Dietary manageme nt education, guidance, and counseling completed Goal Dietary manageme nt education, guidance, and counseling completed Goal Dietary manageme nt education, guidance, and counseling completed Goal Dietary manageme nt education, guidance, and counseling completed Goal Dietary manageme nt education, guidance, and counseling completed Goal Dietary manageme nt education, guidance, and counseling completed Goal Dietary manageme nt education, guidance, and counseling completed Goal Dietary manageme nt education, guidance, and counseling completed Goal Dietary manageme nt education, guidance, and counseling completed Goal Dietary manageme nt education, guidance, and counseling completed Goal Dietary manageme nt education, guidance, and counseling completed Goal Dietary manageme nt education, guidance, and counseling completed Goal Dietary manageme nt education, guidance, and counseling completed Goal Dietary manageme nt education, guidance, and counseling completed Goal Dietary manageme nt education, guidance, and counseling completed Goal Dietary manageme nt education, guidance, and counseling completed Goal Dietary manageme nt education, guidance, and counseling completed Goal Dietary manageme nt education, guidance, and counseling completed Goal Dietary manageme nt education, guidance, and counseling completed Goal Dietary manageme nt education, guidance, and counseling completed Goal Dietary manageme nt education, guidance, and counseling completed Goal Dietary manageme nt education, guidance, and counseling completed Goal Dietary manageme nt education, guidance, and counseling completed Goal Dietary manageme nt education, guidance, and counseling completed Goal Dietary manageme nt education, guidance, and counseling completed Goal Dietary manageme nt education, guidance, and counseling completed Goal Dietary manageme nt education, guidance, and counseling completed Referral Referred To: [address], [id number] [id number] Ordered: X-RAY EXAM OF HUMERUS, MIN 2 VIEWS Left arm ordered Referral Referred To: [address], [id number] Ordered: CT, head, without contrast Appointment date/timeframe: 10/23/2023 ordered Referral Referred To: [address], [id number] [phone] Ordered: X-RAY EXAM OF SHOULDER, COMPLETE Left shoulder Appointment date/timeframe: 09/19/2023 ordered Referral Referred To: [address], [id number] Ordered: XR knee left, 3 views Left Appointment date/timeframe: 05/13/2023 ordered Referral Referred To: [address] [place] [address], [address] [phone] Ordered: DXA BONE DENSITY, AXIAL Appointment date/timeframe: 07/03/2022 ordered Referral Referred To: Bia Arriaga Ordered: Referrals: Physical Therapy. [facility] Rachana Arriaga. Evaluation/diagnostic/treatment - Level 3 ordered Referral Ordered: X-RAY EXAM OF LUMBAR SPINE, 2 or 3 VIEWS ordered Referral Ordered: X-RAY EXAM OF SHOULDER, COMPLETE, MIN 2 VIEWS Right ordered Referral Referred To: [address] [place] [address] Dr [place], [id number] [phone] Ordered: Ultrasound, soft tissues of head and neck (eg, thyroid, parathyroid, parotid), real time with image documentation Appointment date/timeframe: 11/26/2020 ordered Referral Referred To: Dr. Ahsan Rubio Ordered: Referrals: Otolaryngology. Dr. Ahsan Rubio. Evaluation/diagnostic/treatment - Level 3 ordered Referral Referred To: Uri Yu MD [address] [place] [address], [address] [phone] Ordered: Referrals: Gastroenterology. Uri Yu MD. Evaluation/diagnostic/treatment - Level 3 ordered Referral Referred To: [address] [place] [address] Dr [place], [id number] [phone] Ordered: HEAD OR BRAIN CT W/O CONTRAST ordered Referral Referred To: [address] [place] [address] Dr [place], [id number] [phone] Ordered: CT brain wo then w contrast Appointment date/timeframe: 12/08/2019 ordered Referral Ordered: Xray Exam, Hip, Unilat, Two Or Three Views Left ordered Referral Referred To: Sultan Blaire [address] [place], [address] [phone] Ordered: Referrals: Cardiology. Sultan Blaire. Consult - Level 1 Appointment date/timeframe: 08/16/2019 ordered Referral Referred To: Jw Andres MD [address] [place], [address] [phone] Ordered: Referrals: Physical Medicine and Rehabilitation. Jw Andres MD. Evaluation/diagnostic/treatment - Level 3 Appointment date/timeframe: 09/14/2019 ordered Referral Referred To: Joseph Trinidad MD [address] [facility]
[address] [place], [address] [phone] Ordered: Referrals: Orthopedic Surgery. Joseph Trinidad MD. Evaluation/diagnostic/treatment - Level 3 ordered Referral Referred To: Timmy Carrion MD [address]
[facility] [address] [place], [address]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 unspecified knee Keep scheduled follow up with On cology Related to Personal history of malignant neoplasm of breast call me if you feel your breathing worsens Related to Secondary pulmonary arterial hypertension This is hardening of the arteries of your heart found on previous imagingno chest pain. good bp control Related to Atherosclerosis of aorta continue to work on diet and exe rcise Related to Morbid (severe) obesity due to excess calories levels will be checked Related t o Impaired glucose tolerance (oral) this is related to y our underlying chronic kidney diseaseI will continue to monitor Related to Secondary hyperparathyroidism of renal origin keep scheduled follo w up for defibrillator check Related to Other specified postprocedural states we monitor this thro [facility] labs. Make sure you are drinking plenty of water.avoid NSAIDs like ibuprofen, advil, aleve, motrin. tylenol is ok to take. Related to Chronic kidney disease, stage 2 (mild) weigh yourself daily avoid: salty foods, fried foods, processed foods, adding salt to your foods.It you notice a weight gain of 1-2 pounds in 24 hours or 3-5 pounds in 5 days call our officealso keep an eye on the swelling in your legs and your breathing. Notify us of any changes. Related to Chronic combined systolic (congestive) and diastolic (congestive) heart failure Giving encouragement to exercise Related to Body mass index (BMI) 39.0-39.9, adult Dietary management e ducation, guidance, and counseling Related to Body mass index (BMI) 39.0-39.9, adult Disease process Continue with the AC E wrap while you are up during the day and remove this before bedtime.Continue to ice in 20 min increments.Call me if the pain worsens.Flu shot was administered today.Please call with questions or concerns prior to next appointment.Follow-up in April as scheduled with Dr. Person Related to Acute pain of left knee Giving encouragement to exercise Related to Body mass index (BMI) 38.0-38.9, adult Dietary management e ducation, guidance, and counseling Related to Body mass index (BMI) 38.0-38.9, adult Please look into Vol kandi gel which is [id number]. You can also take Tylenol. If you would like to call to schedule an injection please call and let me know. Related to Arthritis of left knee Please start using a wrist splint at nighttime. If you feel that you need to see the hand specialist again please let me know.Call with any questions or concernsCBC, CMP, A1c, intact PTH, vitamin D todayReturn in 4 months Related to Right hand pain Please keep an eye o n this and let me know if this gets any worse or if you develop any neck pain or worsening numbness and tingling. Related to Right arm pain Follow-up with Dr. Warner as aldo lenz Related to Personal history of malignant neoplasm of breast Follow-up with Dr. Harris Related to Other specified postprocedural states We will check levels today Relat ed to Secondary hyperparathyroidism of renal origin Continue on current medication and follow with cardiology. Related to Atherosclerotic heart disease of [place] coronary artery without angina pectoris We will check A1c to day.Please work on improving diet and cutting back on high sugar foods. Related to Impaired glucose tolerance (oral) I am sorry I do not have any Entresto samples to give you but I did give you a patient assistance form for you to fill out and we can turn in.Continue on current medications at this time and follow with cardiology. I recommend you weigh yourself daily and notify us if you gain 2 pounds in 24 hours or 3 to 5 pounds in a week.Follow a low-salt diet and monitor for any changes in swelling in your legs or breathing. Please call if you have any of the above issues. Related to Chronic combined systolic (congestive) and diastolic (congestive) heart failure This is stable and m onitor through labs. We will check levels today. Related to Chronic kidney disease, stage 2 (mild) Blood pressures cont rolled on current medication. No changes. Related to Hypertensive heart and chronic kidney disease with heart failure and stage 1 through stage 4 chronic kidney disease, or unspecified chronic kidney disease Giving encouragement to exercise Related to Body mass index (BMI) 39.0-39.9, adult Dietary management e ducation, guidance, and counseling Related to Body mass index (BMI) 39.0-39.9, adult Fall Risk Prevention Disease process Urinary Incontinence Keep up the great wo rk with dietary efforts.Weight is down 5lbs since May Related to Morbid (severe) obesity due to excess calories Weigh yourself daily .avoid: salty foods, fried foods, processed foods, adding salt to your foods.If you notice a weight gain of 1-2 pounds in 24 hours or 3-5 pounds in 5 days call our officeKeep an eye on the swelling in your legs and your breathing Notify us of any changes Related to Chronic combined systolic (congestive) and diastolic (congestive) heart failure Be sure to stay well hydrated and avoid NSAIDs such as Advil (ibuprofen) and Aleve (naproxen) to prevent further damage to your kidneys Related to Chronic kidney disease, stage 2 (mild) Your blood pressure is well controlled today.Continue your current medications.No labs today.We will check labs again at your next office visit.Please call the office with any issues, questions, or concerns prior to your next appointment.Follow up again in 3 months Related to Hypertensive heart and chronic kidney disease with heart failure and stage 1 through stage 4 chronic kidney disease, or unspecified chronic kidney disease Disease process medication given to help with sleep and anxietytake it at nightno drivingcall me next week after your appointment Related to Anxiety disorder, unspecified keep scheduled follo w up with Dr. Harris Related to Other specified postprocedural states we monitor this thro [facility] labs. Make sure you are drinking plenty of water.avoid NSAIDs like ibuprofen, advil, aleve, motrin. tylenol is ok to take. Related to Chronic kidney disease, stage 2 (mild) continue with the cu rrent medicationsee below for medication to help with sleepkeep scheduled follow up with cardiology Related to Hypertensive heart and chronic kidney disease with heart failure and stage 1 through stage 4 chronic kidney disease, or unspecified chronic kidney disease weigh yourself daily avoid: salty foods, fried foods, processed foods, adding salt to your foods.It you notice a weight gain of 1-2 pounds in 24 hours or 3-5 pounds in 5 days call our officealso keep an eye on the swelling in your legs and your breathing. Notify us of any changes. Related to Chronic combined systolic (congestive) and diastolic (congestive) heart failure Disease process Giving encouragement to exercise Related to Body mass index (BMI) 38.0-38.9, adult Dietary management e ducation, guidance, and counseling Related to Body mass index (BMI) 38.0-38.9, adult Work on nutritious d iet, exercise, and try to avoid processed foods and high-sugar foods and portion control.Try to stay as active as possible Related to Morbid (severe) obesity due to excess calories This is hardening of the arteries of your heart found on previous imaging.Blood pressure is well controlled.Continue your medications as prescribed Related to Atherosclerosis of aorta This is increased pr essure in the lungs related to your heart failure Breathing is stable. Related to Secondary pulmonary arterial hypertension Your parathyroid is slightly overactive due to your chronic kidney disease Related to Secondary hyperparathyroidism of renal origin Be sure to stay well hydrated and avoid NSAIDs such as Advil (ibuprofen) and Aleve (naproxen) to prevent further damage to your kidneys Related to Chronic kidney disease, stage 2 (mild) Weigh yourself daily avoid: salty foods, fried foods, processed foods, adding salt to your foods.If you notice a weight gain of 1-2 pounds in 24 hours or 3-5 pounds in 5 days call our office.Keep an eye on the swelling in your legs and your breathing Notify us of any changes Status: Able to self-manage condition. Goals: Your goal is to limit your salt intake to 2 g sodium per day. Barriers: No barriers to goal achievement have been identified. Related to Chronic combined systolic (congestive) and diastolic (congestive) heart failure Your blood pressure is well controlled today.Continue your current medications Related to Hypertensive heart and chronic kidney disease with heart failure and stage 1 through stage 4 chronic kidney disease, or unspecified chronic kidney disease Right knee injection was administered today.After informed consent was signed and landmarks were identified, the needle was placed after the skin had been cleansed with three iodine impregnated gauze, 40 mg of Kenalog and 2 mL 1% lidocaine were instilled in the joint without difficulty. Call the office if you develop increases redness, swelling, or pain at injection site.Please let me know if your pain does not improve with the injection.Please call with questions or concerns prior to your next appointment.Follow up with Dr. Person next month as scheduled Related to Primary osteoarthritis of left knee Giving encouragement to exercise Related to Body mass index (BMI) 38.0-38.9, adult Disease process Dietary management e ducation, guidance, and counseling Related to Body mass index (BMI) 38.0-38.9, adult I am glad this is do ing better.I will hold off prescribing you any medication.Okay to apply heat.You could try 4% lidocaine patch which is [id number].I am giving you back stretches.Please avoid pulling or lifting.Okay to take acetaminophen as needed.Please call if this worsens or changes in any way.Call with any questions or concernsNo labs todayReturn as scheduled Related to Back strain, initial encounter Most recent mammogra m was good. Repeat in 1 year Related to History of breast cancer Continue on current medication. I recommend you weigh yourself daily and notify us if you gain 2 pounds in 24 hours or 3 to 5 pounds in a week.Follow a low-salt diet and monitor for any changes in swelling in your legs or breathing. Please call if you have any of the above issues. Related to Chronic combined systolic (congestive) and diastolic (congestive) heart failure Blood pressure stabl e on current medication. Related to Hypertensive heart disease with heart failure Dietary management e ducation, guidance, and counseling Related to Body mass index (BMI) 38.0-38.9, adult Giving encouragement to exercise Related to Body mass index (BMI) 38.0-38.9, adult Disease prevention as stated above Related to Post- menopausal Work on nutritious d iet, exercise, and try to avoid processed foods and high-sugar foods and portion control.Aim for 30 minutes of exercise at least 5 days a week Related to Morbid obesity due to excess calories I sent a refill for your Fosamax.I will also send an order for a repeat bone density scan to [facility] Related to Age-related osteoporosis without current pathological fracture Antibiotics were sen t to the pharmacy.Call me next week with an update.I also sent a refill for your albuterol Related to URI, acute this is related to t he underlying low vitamin Dwe will monitor labs Related to Secondary hyperparathyroidism of renal origin Keep scheduled follo w up with Oncologymammogram in February Related to History of breast cancer follow with cardiolo gy as scheduledno change in medications weigh yourself dailyavoid: salty foods, fried foods, processed foods, adding salt to your foods.It you notice a weight gain of 1-2 pounds in 24 hours or 3-5 pounds in 5 days call our officealso keep an eye on the swelling in your legs and your breathing. Notify us of any changes.Status: Meeting treatment plan goals. Goals: Your goal is to manage your medicine. Barriers: No barriers to goal achievement have been identified. Related to Chronic combined systolic (congestive) and diastolic (congestive) heart failure Your hemoglobin A1c is in the prediabetic range.We will continue to monitor this with labs.Work on making healthy dietary choices to help with this.Status: Able to self-manage condition. Goals: Your goal is to work on healthy eating habits. No barriers to goal achievement have been identified. Related to Impaired glucose tolerance (oral) Your blood pressure is well controlled today.Continue your current medications.We will check routine labs today.CBC, CMP, lipid panel, TSH, A1c, PTH, and vitamin DPlease call the office with any issues, questions, or concerns prior to your next appointment.Follow up with Dr. Person again in 4 monthsWe will plan on administering your flu shot in 2 weeks Related to Hypertensive heart disease with heart failure Dietary management e ducation, guidance, and counseling Related to Body mass index (BMI) 39.0-39.9, adult Giving encouragement to exercise Related to Body mass index (BMI) 39.0-39.9, adult Disease process Keep scheduled follo w up with Oncologymammogram before appointmentmake sure to wear your compression sleeve and get fitted for your mastectomy bra at [facility] bra shopreturn to me in 4 monthscall me with questions or concernslabs checked Related to History of breast cancer follow with your hea rt doctor no change in medications weigh yourself dailyavoid: salty foods, fried foods, processed foods, adding salt to your foods.It you notice a weight gain of 1-2 pounds in 24 hours or 3-5 pounds in 5 days call our officealso keep an eye on the swelling in your legs and your breathing. Notify us of any changes.Status: Meeting treatment plan goals. Goals: Your goal is to manage your medicine. Barriers: No barriers to goal achievement have been identified. Related to Chronic combined systolic (congestive) and diastolic (congestive) heart failure Status: Able to self -manage condition. Goals: Your goal is to work on healthy eating habits. No barriers to goal achievement have been identified.levels will be checked Related to Impaired glucose tolerance (oral) Your blood pressure is well controlledno change in medications at this time - keep appointment with the scanner supervisor Related to Hypertensive heart disease with heart failure Urinary Incontinence Dietary management e ducation, guidance, and counseling Related to Body mass index (BMI) 38.0-38.9, adult Fall Risk Prevention Giving encouragement to exercise Related to Body mass index (BMI) 38.0-38.9, adult Disease process this is increased pr essure in the lungs related to the CHF.we are looking further into your shortness of breathCall with any questions or concerns Related to Other secondary pulmonary hypertension this is related to t he underlying low vitamin Dwe will monitor labs Related to Secondary hyperparathyroidism of renal origin This is hardening of the arteries of your heart found on previous imagingno chest pain. Related to Atherosclerosis of aorta continue with the current medica tion Related to Age-related osteoporosis without current pathological fracture Keep scheduled follo w up with Oncologymammogram before appointment Related to History of breast cancer As discussed, be hilda e to avoid heavy lifting, pushing, pulling etc.Continue your Tylenol as needed.Please let us know if your pain worsens Related to Arthralgia of multiple joints Status: Able to self -manage condition. Goals: Your goal is to work on healthy eating habits. No barriers to goal achievement have been identified.levels will be checked Related to Impaired glucose tolerance (oral) Your blood pressure is not well controlledno change in medications at this time - keep appointment with the scanner supervisor tomorrowif it remains elevated then he can address medication changesmonitor from home and call if you notice it consistently above 140/90 Related to Hypertensive heart disease with heart failure I would recommend go ing to [email or web address] [facility] to look into your optionsreturn to me in 4 monthscall me with questions or concernslabs checked 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 Notify us of any changes.Status: Meeting treatment plan goals. Goals: Your goal is to manage your medicine. Barriers: No barriers to goal achievement have been identified. Related to Chronic combined systolic (congestive) and diastolic (congestive) heart failure Continue with the fa motidine twice per dayIf this does not improve call and let me know Related to Gastro-esophageal reflux disease without esophagitis Giving encouragement to exercise Related to Body mass index (BMI) 38.0-38.9, adult Dietary management e ducation, guidance, and counseling Related to Body mass index (BMI) 38.0-38.9, adult Disease process you are doing well w ith the 5% lidocaine ointment.continue with therapyyou can use the cyclobenzaprine as neededplease call for refillsCall with any questions or concernsno labs todayreturn as scheduledcovid booster Please continue to follow COVID precautions including: wearing a mask or face covering in public, washing your hands frequently and remaining socially distant when in public. Related to Paraesthesia of right leg follow with your hea rt doctor later this weekno change in medications weigh yourself dailyavoid: salty foods, fried foods, processed foods, adding salt to your foods.It you notice a weight gain of 1-2 pounds in 24 hours or 3-5 pounds in 5 days call our officealso keep an eye on the swelling in your legs and your breathing. Notify us of any changes.Status: Meeting treatment plan goals. Goals: Your goal is to manage your medicine. Barriers: No barriers to goal achievement have been identified. Related to Chronic combined systolic (congestive) and diastolic (congestive) heart failure Your blood pressure is well controlled todayno change in medications at this timemonitor from home and call if you notice it consistently above 140/90 Related to Hypertensive heart disease with heart failure Disease process Dietary management e ducation, guidance, and counseling Related to Body mass index (BMI) 39.0-39.9, adult Giving encouragement to exercise Related to Body mass index (BMI) 39.0-39.9, adult avoid lifting, pushi ng, pulling movements or excessive walking or anything that worsens the painalternate ice/heat to the siteyou can use over the counter creams like icy/hot, blue Imu or biofreeze try 4% lidocaine pain patch or salon pas Extra Strength Tylenol 500mg tablets. May take 1-2 tablets every 8 hours as needed. Do not take more than 6 pills in 24 hours.xray todaycall with an update in 1 week or sooner if it gets worse Related to Acute right-sided low back pain without sciatica Giving encouragement to exercise Related to Body mass index (BMI) 38.0-38.9, adult Exercise Dietary management e ducation, guidance, and counseling Related to Body mass index (BMI) 38.0-38.9, adult Status: Able to self -manage condition. Goals: Your goal is to work on healthy eating habits. 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 Goals: Your goal is to limit your salt intake to 2 g sodium per day. No barriers to goal achievement have been identified. weigh yourself dailyavoid: salty foods, fried foods, processed foods, adding salt to your foods.It you notice a weight gain of 1-2 pounds in 24 hours or 3-5 pounds in 5 days call our officealso keep an eye on the swelling in your legs and your breathing. Notify us of any changes. Related to Chronic combined systolic (congestive) and diastolic (congestive) heart failure Giving encouragement to exercise Related to Body mass index (BMI) 38.0-38.9, adult Dietary management e ducation, guidance, and counseling Related to Body mass index (BMI) 38.0-38.9, adult Disease process As discussed, be hilda e to avoid heavy lifting, pushing, pulling etc.Continue your Tylenol as needed.Please let us know if your pain worsens Related to Arthralgia of multiple joints We will send an orde r for an ultrasound to [facility] today.Stretches were provided.Continue taking Tylenol as needed for pain.Call the office if this worsens.Please call the office with any issues, questions, or concerns prior to your next appointment.Follow up with Dr. Person as scheduled next month Related to Supraclavicular fossa fullness Giving encouragement to exercise Related to Body mass index (BMI) 37.0-37.9, adult Dietary management e ducation, guidance, and counseling Related to Body mass index (BMI) 37.0-37.9, adult Bilateral joint inje ctions were administered today. After informed consent was signed and landmarks were identified, the needle was placed after the skin had been cleansed with three iodine impregnated gauze, 40 mg of Kenalog and 1 mL 2% lidocaine were instilled in the joint without difficulty. Call the office if you develop increases redness, swelling, or pain at injection site.Continue with social distancing.AVOID CROWDS AVOID TOUCHING YOUR FACE AVOID UNNECESSARY TRAVEL. WASH HANDS OFTEN. CALL WITH QUESTIONS/CONCERNS Please call the office with any issues, questions, or concerns prior to your next appointment.Follow up with Dr. Person in December as scheduled Related to Bilateral primary osteoarthritis of knee Disease process Giving encouragement to exercise Related to Body mass index (BMI) 37.0-37.9, adult Dietary management e ducation, guidance, and counseling Related to Body mass index (BMI) 37.0-37.9, adult we will get you sche duled for knee injections in 1-2 weeks Related to Bilateral primary osteoarthritis of knee continue with the tw ice per day acid reflux medication call me if this worsens and we can send you back to GI for further evaluation Related to Gastro-esophageal reflux disease without esophagitis blood pressure is stableno preciado es Related to Hypertensive heart disease with heart failure Status: Able to self -manage condition. Goals: Your goal is to limit your salt intake to 2 g sodium per day. No barriers to goal achievement have been identified. weigh yourself dailyavoid: salty foods, fried foods, processed foods, adding salt to your foods.It you notice a weight gain of 1-2 pounds in 24 hours or 3-5 pounds in 5 days call our officealso keep an eye on the swelling in your legs and your breathing. Notify us of any changes. Related to Chronic combined systolic (congestive) and diastolic (congestive) heart failure Continue with the cu rrent medication as recommended by ENTcall if the cough returnsreturn to me in 4 months for a scheduled follow upno labs todaywe will check labs at the next visitcall ne with questions or concerns Related to Cough Dietary management e ducation, guidance, and counseling Related to Body mass index (BMI) 37.0-37.9, adult Disease process Giving encouragement to exercise Related to Body mass index (BMI) 37.0-37.9, adult Fall Risk Prevention Urinary Incontinence continue with the current medica tion Related to Age-related osteoporosis without current pathological fracture well controlled with current medicationpt to be off of work until 2 weeks after she is vaccinatedI will send in a note to this regard to her workreturn to me in 3 monthstentatively we will say return to work at the beginning of September but this can be adjusted if she is unable to received the vaccine sooner Related to Gastroesophageal reflux disease without esophagitis weight is up slightl ywork on diet and portion control Related to Morbid (severe) obesity due to excess calories Your blood pressure is well controlled today.Continue your current medications. Related to Hypertensive heart disease with chronic combined systolic and diastolic congestive heart failure this is related to t he underlying low vitamin Dwe will monitor labs Related to Secondary hyperparathyroidism of renal origin this is increased pr essure in the lungs related to the CHF.we are looking further into your shortness of breathCall with any questions or concerns Related to Other secondary pulmonary hypertension Stable.Follow-up maddie Rudd Continue to limit your sodium and monitor your weights daily.Please call the office if you gain more than 2 pounds in one day or 5 pounds in one week.Status: Meeting treatment plan goals. Goals: Your goal is to monitor your weight. Barriers: No barriers to goal achievement have been identified. Related to Chronic combined systolic (congestive) and diastolic (congestive) heart failure follows with breast oncology Rel ated to History of breast cancer This is hardening of the arteries of your heart found on previous imagingno chest pain. good bp control Related to Atherosclerosis of aorta Dietary management e ducation, guidance, and counseling Related to Body mass index (BMI) 37.0-37.9, adult Giving encouragement to exercise Related to Body mass index (BMI) 37.0-37.9, adult Disease process Increase your famoti dine to 40 mg twice daily with breakfast and dinner.Continue your Flonase 1 spray in each nostril twice daily.Call if no improvement with increasing your medication, and we will refer you to Dr. Yu for endoscopy.Call if you develop worsening symptoms, difficulty swallowing, or vomiting.Continue with social distancing.AVOID CROWDS AVOID TOUCHING YOUR FACE AVOID UNNECESSARY TRAVEL. WASH HANDS OFTEN. CALL WITH QUESTIONS/CONCERNS Please call the office with any issues, questions, or concerns prior to your next appointment.Follow up with Dr. Person in April as scheduled.Pneumovax was administered today. Related to Gastroesophageal reflux disease without esophagitis Giving encouragement to exercise Related to Body mass index (BMI) 36.0-36.9, adult Dietary management e ducation, guidance, and counseling Related to Body mass index (BMI) 36.0-36.9, adult your incision looks goodkeep scheduled follow up with cardiologyreturn to me as scheduledcall me with questions or concernsoff work until next appointment to recover from defibrillator placement and as you are still high risk for complications should you contract COVID Related to Other specified postprocedural states Your blood pressure is the high end of normalI gave you samples of the higher dose of entrestoyou are going to see cardiology later todaycheck with cardiology and see if they want to increase the dosage Related to Hypertensive heart disease with chronic combined systolic and diastolic congestive heart failure Stable.Follow-up maddie Rudd Continue to limit your sodium and monitor your weights daily.Please call the office if you gain more than 2 pounds in one day or 5 pounds in one week.Status: Meeting treatment plan goals. Goals: Your goal is to monitor your weight. Barriers: No barriers to goal achievement have been identified. Related to Chronic combined systolic (congestive) and diastolic (congestive) heart failure continue with the current medica tion Related to Age-related osteoporosis without current pathological fracture Giving encouragement to exercise Related to Body mass index (BMI) 36.0-36.9, adult Disease process Dietary management e ducation, guidance, and counseling Related to Body mass index (BMI) 36.0-36.9, adult Left hip injection a dministered today.After informed consent was signed and landmarks were identified, the needle was placed after the skin had been cleansed with three iodine impregnated gauze, 40 mg of Kenalog and 1 mL 2% lidocaine were instilled in the joint without difficulty. Call the office if you develop increases redness, swelling, or pain at injection site.This can be repeated as often as every 3 months if needed.Continue with social distancing.AVOID CROWDS AVOID TOUCHING YOUR FACE AVOID UNNECESSARY TRAVEL. WASH HANDS OFTEN. CALL WITH QUESTIONS/CONCERNS Please call the office with any issues, questions, or concerns prior to your next appointment.Follow up again with Dr. Person in January as scheduled Related to Primary osteoarthritis of left hip Medication management Giving encouragement to exercise Related to Body mass index (BMI) 36.0-36.9, adult Dietary management e ducation, guidance, and counseling Related to Body mass index (BMI) 36.0-36.9, adult see above Related to Other specified postprocedural states keep scheduled follow up with on cology Related to Personal history of malignant neoplasm of breast we will get the imag ing of your brain scheduledreturn to me as scheduledcall me with questions or concernsif your headache changes in any way please call and let me know Related to Headache Dietary management e ducation, guidance, and counseling Related to Body mass index (BMI) 35.0-35.9, adult Giving encouragement to exercise Related to Body mass index (BMI) 35.0-35.9, adult Disease process continue to wear the brace as ne eded Related to Carpal tunnel syndrome, unspecified upper limb xray of the hip done we will schedule you for an injection in 2 weeks with Kailsaareturn to me in 3-4 monthscall me with questions or concerns Related to Pain in left hip continue with the current medica tion Related to Age-related osteoporosis without current pathological fracture Your blood pressure is well controlled today.Continue your current medications. Related to Hypertensive heart disease with chronic combined systolic and diastolic congestive heart failure Stable.Follow-up maddie Rudd Continue to limit your sodium and monitor your weights daily.Please call the office if you gain more than 2 pounds in one day or 5 pounds in one week.Status: Meeting treatment plan goals. Goals: Your goal is to monitor your weight. Barriers: No barriers to goal achievement have been identified. Related to Chronic combined systolic (congestive) and diastolic (congestive) heart failure Disease process Dietary management e ducation, guidance, and counseling Related to Body mass index (BMI) 35.0-35.9, adult Giving encouragement to exercise Related to Body mass index (BMI) 35.0-35.9, adult follows with breast cancer surgeon and oncology Related to History of breast cancer this is increased pr essure in the lungs related to the CHF.we are looking further into your shortness of breathCall with any questions or concernsno labs todayreturn at the end of the month Related to Other secondary pulmonary hypertension continue with the fo samaxnext bone density in 1 year Related to Osteoporosis without current pathological fracture, unspecified osteoporosis type This is hardening of the arteries of your heart found on previous imagingno chest pain. good bp control Related to Atherosclerosis of aorta stable for nowif the swelling returns let me know and we can send you back to physical therapy Related to Lymphedema of right upper extremity this is related to t he underlying kidney diseasewe will monitor labs Related to Secondary hyperparathyroidism of renal origin Your blood pressure is well controlled today.Continue your current medications. Related to Hypertensive heart disease with chronic combined systolic and diastolic congestive heart failure Stable.Follow-up maddie Rudd Continue to limit your sodium and monitor your weights daily.Please call the office if you gain more than 2 pounds in one day or 5 pounds in one week.Status: Meeting treatment plan goals. Goals: Your goal is to monitor your weight. Barriers: No barriers to goal achievement have been identified. Related to Chronic combined systolic (congestive) and diastolic (congestive) heart failure weight is steadycont inue to work on portion control and good food choices Related to Morbid (severe) obesity due to excess calories chest xray paola guevara pulse oximetry was normalrescue inhaler called to the pharmacyI will call wednesday with the resultsif no better then we will push up the appointment with Dr. Keen Related to Shortness of breath Dietary management e ducation, guidance, and counseling Related to Body mass index (BMI) 35.0-35.9, adult Disease process Giving encouragement to exercise Related to Body mass index (BMI) 35.0-35.9, adult we will get labs tod ay (ahead of the October appointment)log your food and drink for the next few weeks - also log the pain, we can review this at the October visitrecommend soft foods, easy to digestincrease water intakecall if your symptoms worsenkeep scheduled appointment October 26 AVOID CROWDS - REMAIN 6 FEET APART FROM PEOPLE. WEAR A MASK. AVOID TOUCHING YOUR FACE. AVOID UNNECESSARY TRAVEL. WASH HANDS OFTEN. CALL WITH QUESTIONS/CONCERNS Related to Lower abdominal pain Disease process Dietary management e ducation, guidance, and counseling Related to Body mass index (BMI) 35.0-35.9, adult Giving encouragement to exercise Related to Body mass index (BMI) 35.0-35.9, adult recommend eating mor e foods that are easy to digest: yogurt, instant oatmeal, bananas, rice, applesauce, egg whites, jello, boiled potatoes, lean meatavoid alcohol, tea/caffeine, chocolate, corn/popcorn, berries, high fat/fried foodsstart probiotic - either yogurt (Activia) or pill form (lactobacillus / Align)we can monitor this for now, call if symptoms worsen - changes in stool, constant pain, nausea, vomitingreturn in 3-4 monthscall with any questions/concerns AVOID CROWDS - REMAIN 6 FEET APART FROM PEOPLE. AVOID TOUCHING YOUR FACE. AVOID UNNECESSARY TRAVEL. WASH HANDS OFTEN. CALL WITH QUESTIONS/CONCERNS Related to Abdominal pain, RLQ Disease process Dietary management e ducation, guidance, and counseling Related to Body mass index (BMI) 33.0-33.9, adult Giving encouragement to exercise Related to Body mass index (BMI) 33.0-33.9, adult This is managed by Abhishek Carrion.Mammogram was normal in January and is due again in one year. Related to History of breast cancer Great job with the w eight loss!Keep up the great work. Related to Body mass index (BMI) 34.0-34.9, adult Stable.Follow-up wit kenneth Rudd on the as scheduled.Continue to limit your sodium and monitor your weights daily.Please call the office if you gain more than 2 pounds in one day or 5 pounds in one week.I will review your recent labs ordered by Dr. Rudd.We will not order any additional lab work today.Follow-up with Dr. Person again in 3 months.Please call us with any issues prior to next appointment.Status: Meeting treatment plan goals. Goals: Your goal is to monitor your weight. Barriers: No barriers to goal achievement have been identified. Related to Chronic combined systolic (congestive) and diastolic (congestive) heart failure Your blood pressure is well controlled today.Continue your current medications. Related to Hypertensive heart disease with chronic combined systolic and diastolic congestive heart failure Giving encouragement to exercise Related to Body mass index (BMI) 34.0-34.9, adult Dietary management e ducation, guidance, and counseling Related to Body mass index (BMI) 34.0-34.9, adult Disease process Take all new medicat ion as directed.Daily weights. If you gain more than 2 lbs in one day or 3-5 lbs in one week, call the office. Monitor for chest pain, shortness of breath, and swelling in your legs. Call the office with any changes. Avoid salty foods. Avoid adding salt to food. Avoid fried and processed food.keep scheduled appointment with Dr Rudd in 6 weekslabs todayStatus: Requires more self-management coaching. Goals: Your goal is to check for edema or swelling in your legs. Barriers: No barriers to goal achievement have been identified. Related to Chronic combined systolic (congestive) and diastolic (congestive) heart failure Blood pressure is at treatment goal, 130/80 or less on current diet and medication. Please continue your current treatment.Avoid salty foodsnew medications : carvedilol 3.125mg 2 times a daylisinopril 10mg dailyfurosemide 40mg daily Related to Hypertensive heart disease with chronic combined systolic and diastolic congestive heart failure Giving encouragement to exercise Related to Body mass index (BMI) 36.0-36.9, adult Disease process Dietary management e ducation, guidance, and counseling Related to Body mass index (BMI) 36.0-36.9, adult mammogram due in March Relate d to History of breast cancer follow low salt diet no swelling.Call with any questions or concernsno labswill arrange for the CTflu shot and prevnar todayif your symptoms do not get any better in a few weeks, or get worse, let us know, we may need to send you to a specialist.Status: Meeting treatment plan goals. Goals: Your goal is to manage your medicine. Barriers: No barriers to goal achievement have been identified. Related to Chronic combined systolic (congestive) and diastolic (congestive) heart failure make sure you are av oiding alcohol, spicy foods, fried foods, caffeinecontinue on the pepcidyou have stopped the omeprazoleavoid reclining after meals.no late eating. Related to Gastroesophageal reflux disease without esophagitis BP stable Related to Hyper tensive heart disease with chronic combined systolic and diastolic congestive heart failure I think this is rela ishaan to post nasal dripI'd like you to lemon picker some over the counter nasal spray called flonaseuse this twice a day 1 puff per nostril.given your history we will also get a chest CT at [facility].if this doesn't improve we would be happy to send you to ENT. Related to Cough Disease process Dietary management e ducation, guidance, and counseling Related to Body mass index (BMI) 37.0-37.9, adult Giving encouragement to exercise Related to Body mass index (BMI) 37.0-37.9, adult you report difficult y with exhalation at times the lung function test was normal repeat chest xray today - you do not have to get xray again 01/23wicristo call with resultssayra give incentive spirometer: do this 10 times every hour while awakecall with worsening symptoms or concernskeep scheduled appt with Dr Person in Mar Related to Mild shortness of breath Dietary management e ducation, guidance, and counseling Related to Body mass index (BMI) 37.0-37.9, adult Giving encouragement to exercise Related to Body mass index (BMI) 37.0-37.9, adult Disease process EKG unchangedwe will cancel the heart monitor since you have not had the palpitationscall us if it returns. Related to Palpitation this is increased pr essure in the lungs related to the CHF.breathing stableCall with any questions or concernsno labs todayreturn as scheduled to see Dr. Person in March Related to Other secondary pulmonary hypertension weigh yourself daily avoid: salty foods, fried foods, processed foods, adding salt to your foods.It you notice a weight gain of 1-2 pounds in 24 hours or 3-5 pounds in 5 days call our officealso keep an eye on the swelling in your legs and your breathing. Notify us of any changes.Status: Able to self-manage condition. Goals: Your goal is to check for edema or swelling in your legs. Barriers: No barriers to goal achievement have been identified. Related to Chronic combined systolic (congestive) and diastolic (congestive) heart failure we will recheck your chest xray in 6 weeksI'd like you to get the pneumonia vaccine then.flu shot this fallcomplete the antibiotics and steroids.call if your symptoms worsen. Related to Community acquired pneumonia of right lower lobe of lung BP stable Related to Hyper tensive heart disease with chronic combined systolic and diastolic congestive heart failure I am going to send t he bone medicationyou take this once a weeknext bone density in 1 year Related to Osteoporosis without current pathological fracture, unspecified osteoporosis type Dietary management e ducation, guidance, and counseling Related to Body mass index (BMI) 37.0-37.9, adult Giving encouragement to exercise Related to Body mass index (BMI) 37.0-37.9, adult Disease process Dietary management e ducation, guidance, and counseling Related to Body mass index (BMI) 38.0-38.9, adult Giving encouragement to exercise Related to Body mass index (BMI) 38.0-38.9, adult Dietary management e ducation, guidance, and counseling Related to Body mass index (BMI) 38.0-38.9, adult Giving encouragement to exercise Related to Body mass index (BMI) 38.0-38.9, adult I will set up an vita t with Dr. Lopez to look into this further Related to Lymphedema of right upper extremity work on exercise to strengthen the muscles related to the jointcall if you want an injection and we can schedule one Related to Chronic pain of left knee your weight is upwor k on diet and exerciselook into silver sneakersreturn to me in 6 monthscall me with questions or concernscmp cbc tsh lipids checked Related to Morbid (severe) obesity due to excess calories continue with the current medica tion Related to Gastroesophageal reflux disease without esophagitis This is hardening of the arteries of your heart found on previous imagingno chest pain. good bp control Related to Atherosclerosis of aorta stablekeep scheduled office visit with your oncologistmammaograms are up to date Related to History of breast cancer we monitor this thro ugh labs. Make sure you are drinking plenty of water.avoid NSAIDs like ibuprofen, advil, aleve, motrin. tylenol is ok to take. Related to Stage 2 chronic kidney disease this is related to t he underlying kidney diseasewe will monitor labs Related to Secondary hyperparathyroidism of renal origin blood pressure is stableno preciado es Related to Hypertensive heart and renal disease with CHF weigh yourself daily avoid: salty foods, fried foods, processed foods, adding salt to your foods.It you notice a weight gain of 1-2 pounds in 24 hours or 3-5 pounds in 5 days call our officealso keep an eye on the swelling in your legs and your breathing. Notify us of any changes. Status: Able to self-manage condition. Goals: Your goal is to limit your salt intake to 2 g sodium per day. Related to Chronic diastolic heart failure Disease process Urinary Incontinence Dietary management e ducation, guidance, and counseling Related to Body mass index (BMI) 40.0-44.9, adult Giving encouragement to exercise Related to Body mass index (BMI) 40.0-44.9, adult Disease process Fall Risk Prevention mammogram due Wednesday .get this doneDr. B will see you for your yearly appointmentshe can order your prosthetic and bras if needed Related to History of breast cancer I am going to try to get you off the omeprazolesince you are taking 40mg once a day, we are going to cut the dose in hald to 20mg once a daytake this for 2-3 weeksthen try stopping it.you'll want to lemon picker some OTC zantac. you can take up to 300mg at bedtime for reflux issues.this medication is safer for the kidneys.Call with any questions or concernsI will send the shingles vaccine to your pharmacy, however you may be put o a waiting list.flu shot todayreturn in 6 monthscbc, cmp, TSH, dipstick today Related to Gastroesophageal reflux disease without esophagitis tylenol as needed fo r paincontinue with the topical ointment. Related to Chronic pain of left knee we monitor this thro ugh labsavoid NSAIDs like advil, aleve, motrin, ibuprofen, tylenol is ok to take Related to Stage 3 chronic kidney disease BP stable Related to Hyper tensive renal disease Disease process Giving encouragement to exercise Related to Body mass index (BMI) 38.0-38.9, adult Dietary management e ducation, guidance, and counseling Related to Body mass index (BMI) 38.0-38.9, adult Disease process Disease process Disease process Assessments Type Assessment Date No Information Patient Care Teams Name Effective Dates (start - stop) Status Members No Information
--- OUTSIDE RECORDS SUMMARY | 2024-05-18 10:18 | XMS_ITS | Patient Health Summary ---
Author Organization [facility] Address [address] [place] [address] Care Team Providers Care Anchorman Name Role Phone Naila Person Primary Care Provider [phone] Note from [facility],non-owned Affiliates and Associated Physician Practices is amultiple site organization consisting of ambulatory clinics and hospital sitesin [place], [place], [place] and [place]. This disclosure is being madepursuant to the Care Everywhere program and may not contain all information available regarding this patient. Last updated 17.[facility] Allergies * Peanut-Derived(Anaphylaxis) -High Criticality Medications * Be aware that medications may not be up to date on this document. Alwaysverify current medications with the patient. * atorvastatin (LIPITOR) 20 MG tablet Take 20 mg by mouth at bedtime * alendronate (FOSAMAX) 70 MG tablet Take 70 mg by mouth every 7 days before meal Take in morning with full glass of water on empty stomach and remain upright for 30 min * famotidine (PEPCID) 20 MG tablet Take 40 mg by mouth at bedtime * aspirin (ASPIRIN) 81 MG chew tablet(Started 01/29/2019) Take 1 tablet by mouth once daily * lisinopril (PRINIVIL; ZESTRIL) 10 MG tablet(Started 01/29/2019) Take 1 tablet by mouth once daily 2 refills remaining * omeprazole (PRILOSEC) 20 MG capsule Take 20 mg by mouth daily before breakfast * calcium-vitamin D (OS-ELYSE 500 + D) 500-200 mg-unit tablet Take 1 tablet by mouth once daily * carvedilol (COREG) 3.125 MG tablet(Started 01/29/2019) Take 1 tablet by mouth 2 times daily with morning and evening meal 2 refills remaining * guaiFENesin 200 MG/5ML(Started 01/29/2019) Take 5 mL by mouth every 4 hours as needed * furosemide (LASIX) 40 MG tablet(Started 01/30/2019) Take 1 tablet by mouth once daily 2 refills remaining Active Problems Problem Noted Date Diagnosed Date [...] Mass Index 34.02 01/27/2019 9:11 PM CDT Procedures * CARDIAC EKG ORDER(Performed 03/06/2019) * MAGNESIUM BLOOD(Performed 01/29/2019) Performed for Acute decompensated heart failure (HCC) * BASIC METABOLIC PANEL (CALCIUM TOTAL)(Performed 01/29/2019) Performed for Acute decompensated heart failure (HCC) * MAGNESIUM BLOOD(Performed 01/28/2019) Performed for Acute on chronic systolic congestive heart failure (HCC) * BASIC METABOLIC PANEL (CALCIUM TOTAL)(Performed 01/28/2019) Performed for Acute on chronic systolic congestive heart failure (HCC) * PT EVAL AND TREAT(Performed 01/28/2019) * OT EVAL AND TREAT(Performed 01/28/2019) * CARDIAC EKG ORDER(Performed 01/27/2019) * TROPONIN I(Performed 01/27/2019) Performed for SOB (shortness of breath) * ECHO COMPLETE(Performed 01/27/2019) Performed for SOB (shortness of breath), DOZIER (dyspnea on exertion), Acute on chronic systolic congestive heart failure (HCC), Hypoxia * DIFFERENTIAL MANUAL(Performed 01/27/2019) * B-TYPE NATRIURETIC PEPTIDE(Performed 01/27/2019) * CBC W AUTO DIFFERENTIAL(Performed 01/27/2019) * EKG 12-LEAD(Performed 01/27/2019) Performed for SOB (shortness of breath), DOZIER (dyspnea on exertion) * XR CHEST 2VW(Performed 01/27/2019) Performed for SOB (shortness of breath), DOZIER (dyspnea on exertion) * MAGNESIUM BLOOD(Performed 01/27/2019) * TROPONIN I(Performed 01/27/2019) * BASIC METABOLIC PANEL (CALCIUM TOTAL)(Performed 01/27/2019) * MRI BREAST BILAT WWO CONTRAST(Performed 04/04/2014) * CREATININE BLOOD - POCT (IP) [facility](Performed 04/04/2014) * CT HEAD WO CONTRAST(Performed 05/27/2013) Results * CARDIAC EKG ORDER (03/06/2019 12:10 PM ON AWAKE COUNSELOR) Only the most recent of2 resultswithin the time period is included. Narrative 03/06/2019 12:10 PM ON AWAKE COUNSELOR Ordered by an unspecified provider. Scanned Document CARDIAC SERVICES ORD ERABLES * (ABNORMAL) BASIC METABOLIC PANEL (CALCIUM TOTAL) (01/29/2019 2:45 AM CDT) Only the most recent of3 resultswithin the time period is included. BUN 25 7 - 26 mg/dL 01/29/2019 4:07 AM CDT [facility] Creatinine 1.2 0.6 - 1.2 mg/dL 01/29/2019 4:07 AM T [facility] Sodium 139 136 - 145 mmol/L 01/29/2019 4:07 AM [facility] Potassium 3.7 3.5 - 4.5 mmol/L 01/29/2019 4:07 AM [facility] Chloride 100 98 - 107 mmol/L 01/29/2019 4:07 AM [facility] CO2 29 22 - 29 mmol/L 01/29/2019 4:07 AM [facility] Glucose 104 70 - 115 mg/dL 01/29/2019 4:07 AM [facility] Calcium 9.4 8.4 - 10.2 mg/dL 01/29/2019 4:07 AM [facility] Anion Gap 14 8 - 18 01/29/2019 4:07 AM [facility] BUN/Creatinine Ratio 21 7 - 23 01/29/2019 4:07 AM [facility] Osmolality Calculated 293 270 - 300 mOsm/kg 01/29/2019 4:07 AM [facility] eGFR 55(L) >60 mL/min/1.7 3 m2 01/29/2019 4:07 AM [facility] Blood BLOOD SPECIMEN / Unknown Lab Venipuncture / Unknown 01/29/2019 2:45 AM CDT 01/29/2019 3:11 AM CDT Apollo Barr MD LAB - CHEMISTRY ORDJeannette FAM [address] [phone] * MAGNESIUM BLOOD (01/29/2019 2:45 AM CDT) Only the most recent of3 resultswithin the time period is included. Magnesium 1.7 1.6 - 2.6 mg/dL 01/29/2019 4:07 AM T [facility] Blood BLOOD SPECIMEN / Unknown Lab Venipuncture / Unknown 01/29/2019 2:45 AM CDT 01/29/2019 3:11 AM CDT Apollo Barr MD LAB - CHEMISTRY [facility] [address] [phone] * TROPONIN I (01/27/2019 10:00 AM CDT) Only the most recent of2 resultswithin the time period is included. [facility] Troponin I 0.029 <0.032 ng/mL 01/27/2019 10:35 AM CDT [facility] Blood BLOOD SPECIMEN / Unknown Venipuncture / Unknown 01/27/2019 10:00 AM CDT 01/27/2019 10:05 AM CDT Patsy Sr MD LAB - CHEMISTRY ORDERABLES [address] [phone] * ECHO COMPLETE (01/27/2019 9:40 AM CDT) Anatomical Region Laterality Modality Echo 01/27/2019 8:16 AM CDT Narrative Procedure Note Anastasiya Lopez MD - 01/27/2019 Patsy Sr MD ECHOCARDIOGRAPHY RADIANT * (ABNORMAL) DIFFERENTIAL MANUAL (01/27/2019 5:26 AM CDT) [facility] WBC (corrected for NRBC) 9.5 10 3/uL 01/27/2019 6:16 AM CDT [facility] Total Cell Count 100 01/28/20 19 6:16 AM CDT [facility] Neutrophils Absolute Manual 7.13(H) 1.60 - 7.00 10 3/uL 01/27/2019 6:16 AM CDT [facility] Comment:(BANDS+SEGS) x WBC = NEUT # (ANC) Lymphocyte Absolute Manual 1.81 0.80 - 2.90 10 3/uL 01/27/2019 6:16 AM CDT [facility] Monocytes Absolute Manual 0.38 0.14 - 0.66 10 3/uL 01/27/2019 6:16 AM CDT [facility] Eosinophils Absolute Manual 0.19 0.00 - 0.22 10 3/uL 01/27/2019 6:16 AM T [facility] Neutrophil % Manual 75(H) 30 - 60 % 01/27/2019 6:16 AM [facility] Lymphocyte % Manual 19(L) 20 - 45 % 01/27/2019 6:16 AM [facility] Monocytes % Manual 4 2 - 10 % 01/27/2019 6:16 AM [facility] Eosinophils % Manual 2 1 - 6 % 01/27/2019 6:16 AM [facility] Platelet Estimate Adequate Adequate 01/27/2019 6:16 AM [facility] Polychromasia Occasional( A) None 01/27/2019 6:16 AM [facility] Ovalocytes Few(A) None 01/27/2019 6:16 AM [facility] [place] Cells Occasional( A) None 01/27/2019 6:16 AM [facility] Blood BLOOD SPECIMEN / Unknown Venipuncture / Unknown 01/27/2019 5:26 AM CDT 01/27/2019 5:26 AM CDT Scot Quinn MD LAB - HEMATOLOGY ORD ERABLES [address] [phone] * (ABNORMAL) CBC W AUTO DIFFERENTIAL (01/27/2019 5:26 AM CDT) WBC 9.5 3.5 - 10.5 10 3/uL 01/27/2019 5:35 AM [facility] RBC 3.97 3.90 - 5.00 10 6/uL 01/27/2019 5:35 AM [facility] Hemoglobin 11.2(L) 12.0 - 15.5 g/dL 01/27/2019 5:35 AM [facility] Hematocrit 35.7 35.0 - 45.0 % 01/27/2019 5:35 AM [facility] MCV 89.9 81.0 - 97.0 fL 01/27/2019 5:35 AM [facility] MCH 28.2 28.0 - 34.0 pg 01/27/2019 5:35 AM T [facility] MCHC 31.4(L) 32.0 - 36.0 g/dL 01/27/2019 5:35 AM [facility] Platelet Count 292 150 - 400 10 3/uL 01/27/2019 5:35 AM [facility] RDW-SD 46.7 36.0 - 50.0 fL 01/27/2019 5:35 AM [facility] RDW-CV 14.4 11.2 - 14.8 % 01/27/2019 5:35 AM [facility] MPV 10.3 9.3 - 12.8 fL 01/27/2019 5:35 AM [facility] nRBC Absolute 0.00 0 10 3/uL 01/27/2019 5:35 AM [facility] nRBC Auto 0.0 0 /100 WBC 01/27/2019 5:35 AM [facility] Blood BLOOD SPECIMEN / Unknown Venipuncture / Unknown 01/27/2019 5:26 AM CDT 01/27/2019 5:26 AM CDT Scot Quinn MD LAB - HEMATOLOGY ORD ERABLES [facility] [address] [phone] * (ABNORMAL) B-TYPE NATRIURETIC PEPTIDE (01/27/2019 5:26 AM CDT) BNP 363(H) See Comment pg/mL 01/27/2019 6:20 AM [facility] Comment: * Disclaimer: BNP results may be falsely high by 20% due * * to shift observed secondary to new reagent lot. Lab * * working with cloth checker to resolve. * * * * Please contact Core Lab Manager Plan with any questions * A decision threshold of 100 pg/mL has been demonstrated to provide the maximal combination of sensitivity, specificity and predictive value for the diagnosis of congestive heart failure (CHF). Virtually all patients with no evidence of CHF have BNP values less than 100 pg/mL. A BNP value greater than 100 pg/mL is consistent with the diagnosis of CHF in the appropriate clinical setting. In a study of 693 patients (male and female) with diagnosed CHF, the following values were determined based on the NYHA functional classification system: NYHA Functional Class Mean Valule (pg/mL) % >100 pg/mL I 320 58.1 II 432 73.0 III 656 79.0 IV 1635 98.3 Blood BLOOD SPECIMEN / Unknown Venipuncture / Unknown 01/27/2019 5:26 AM CDT 01/27/2019 5:26 AM CDT Scot Quinn MD LAB - CHEMISTRY [facility] Organization Address City/State/ZIP Co de Phone Number [address] [phone] * EKG 12-LEAD (01/27/2019 4:17 AM CDT) Ventricular Rate 104 BPM [facility] Atrial Rate 104 BPM [facility] P-R Interval 162 ms [facility] QRS Duration ms 146 ms [facility] Q-T Interval ms 418 ms [facility] QTC Calculation (Bezet) 549 ms [facility] Calculated P Murdo 59 degrees [facility] Calculated R Murdo -7 degrees [facility] Calculated T Murdo 106 degrees [facility] Interpretation EKG SINUS TACHYCARDIA WITH OCCASIONAL PREMATURE VENTRICULAR COMPLEXES LEFT BUNDLE BRANCH BLOCK ABNORMAL ECG NO PREVIOUS ECGS AVAILABLE Confirmed by Logan Bueno ([id number]), field map editor FAHAD ANDERSON ([id number]) on 02/11/2019 1:01:15 PM [facility] 01/27/2019 4:17 AM CDT 02/11/2019 1:01 PM ON AWAKE COUNSELOR Scot Quinn MD ECG ORDERABLES [facility] * XR CHEST 2VW (01/27/2019 4:11 AM CDT) Anatomical Region Laterality Modality Chest Radiographic Raisa ging 01/27/2019 7:51 AM CDT Impressions 01/27/2019 7:57 AM CDT FINDINGS/IMPRESSION: There are diffuse bilateral interstitial and airspace opacities may present pulmonary edema and multifocal pneumonia. There is no pleural effusion or pneumothorax. The cardiomediastinal silhouette is normal. The visible bony thorax is intact. Dictated by Yordy Stallings MD (Resident). Dr. BRIONNA Gorman have personally reviewed and interpreted this examination/study. This report was electronically signed by BRIONNA MELVIN on 01/27/2019 7:57 AM . Narrative 01/27/2019 7:57 AM CDT EXAMINATION: XR CHEST 2VW HISTORY: SOB COMPARISON: No prior study is available for comparison. Procedure Note Brionna Melvin, DO - 01/27/2019 EXAMINATION: XR CHEST 2VW HISTORY: SOB COMPARISON: No prior study is available for comparison. FINDINGS/IMPRESSION: There are diffuse bilateral interstitial and airspace opacities may present pulmonary edema and multifocal pneumonia. There is no pleural effusion or pneumothorax. The cardiomediastinal silhouette is normal.The visible bony thorax is intact. Dictated by Yordy Stallings MD (Resident). Dr. BRIONNA Gorman have personally reviewed and interpreted this examination/study. This report was electronically signed by BRIONNA MELVIN on 01/27/2019 7:57 AM . Scto Quinn MD DIAGNOSTIC IMAGING O RDERABLES * MRI BREAST BILAT WWO CONTRAST (04/04/2014 1:13 PM ON AWAKE COUNSELOR) Anatomical Region Laterality Modality Breast Bilateral Other Impressions 04/09/2014 11:42 AM ON AWAKE COUNSELOR IMPRESSION: 1. Right axillary lymphadenopathy, consistent with the stated history of metastatic carcinoma of breast primary. No suspicious findings are identified within either breast on breast MRI to identify a site of recurrence. However, multiple smaller enhancing masses along the low right axilla are thought to represent additional small lymph nodes. Ultrasound evaluation can be considered to ensure that a small primary cancer is not being obscured by these multiple small nodes. 2. Surgical changes in the right breast consistent with right lumpectomy. BI-RADS category 6,biopsy proven malignancy. Report Dictated by Luis M Quintana M.D. ([place]) I, Dr. GAY RAMOS M.D. have personally reviewed and interpreted this examination/study. This report was electronically signed by GAY RAMOS M.D. on 04/09/2014 11:42 AM . Narrative 04/09/2014 11:42 AM ON AWAKE COUNSELOR MRI of the breasts with and without contrast COMPARISON: Outside mammogram dated 12/08/2013, 01/16/2013, and 11/11/2011. HISTORY: History of ductal carcinoma in situ, reportedly status post lumpectomy in 2011. 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 Most recent mammograms from 2013 reportedly negative. TECHNIQUE: Multiplanar multisequence MR imaging of both breasts before and following the administration of intravenous gadolinium contrast. Dynamic phase imaging was performed in the axial plane. Exam processed by and interpreted on a [employer] water server including 3-D volume rendering, subtraction image processing and contrast kinetic analysis. 8.5 cc of Gadovist intravenous. GFR: 60 FINDINGS: Degree of postcontrast parenchymal enhancement: Minimal within the right breast and mild within the left breast. Amount of fibroglandular tissue: Scattered fibroglandular tissue RIGHT: Postoperative appearance of prior lumpectomy is noted within the right breast with multiple surgical clips resulting in focal susceptibility artifact. An intramammary lymph node measuring 4 mm in short axis (series 4 image [id number]) is grossly unchanged since mammogram dated 11/11/2011. No masses or abnormal enhancement are identified within the right breast. There are multiple right axillary lymph nodes measuring up to 1.3 cm in the short axis. There is a small amount of edema surrounding one of the lymph nodes which may relate to recent biopsy. Several low right axillary lymph nodes are also identified, but do not appear pathologically enlarged. No enlarged nodes are identified along the internal mammary chain. LEFT: No masses or abnormal enhancement are identified within the left breast. A few subcentimeter left axillary lymph nodes are present. Procedure Note Meg Ramos MD - 07/03/2017 MRI of the breasts with and without contrast COMPARISON: Outside mammogram dated 12/08/2013, 01/16/2013, and 11/11/2011. HISTORY: History of ductal carcinoma in situ, reportedly status postlumpectomy in 2011. New enlarged right axillary lymph node, biopsied on03/16/2014, found to represent metastatic carcinoma consistent with poorlydifferentiated invasive ductal carcinoma of breast origin. Most recent mammograms from 2013 reportedlynegative. TECHNIQUE: Multiplanar multisequence MR imaging of both breasts before and followingthe administration of intravenous gadolinium contrast. Dynamic phaseimaging was performed in the axial plane. Exam processed by andinterpreted on a [employer] water server including 3-D volume rendering, subtraction image processing and contrast kineticanalysis. 8.5 cc of Gadovist intravenous. GFR: 60 FINDINGS: Degree of postcontrast parenchymal enhancement: Minimal within the rightbreast and mild within the left breast. Amount of fibroglandular tissue: Scattered fibroglandular tissue RIGHT: Postoperative appearance of prior lumpectomy is noted within the rightbreast with multiple surgical clips resulting in focal susceptibilityartifact. An intramammary lymph node measuring 4 mm in short axis (series4 image [id number]) is grossly unchanged since mammogram dated 11/11/2011. No masses or abnormal enhancement areidentified within the right breast. There are multiple right axillarylymph nodes measuring up to 1.3 cm in the short axis. There is a smallamount of edema surrounding one of the lymph nodes which may relate to recent biopsy. Several low right axillarylymph nodes are also identified, but do not appear pathologicallyenlarged. No enlarged nodes are identified along the internal mammarychain. LEFT: No masses or abnormal enhancement are identified within the left breast. Afew subcentimeter left axillary lymph nodes are present. IMPRESSION IMPRESSION: 1. Right axillary lymphadenopathy, consistent with the stated history ofmetastatic carcinoma of breast primary. No suspicious findings areidentified within either breast on breast MRI to identify a site ofrecurrence. However, multiple smaller enhancing masses along the low right axilla are thought to representadditional small lymph nodes. Ultrasound evaluation can be considered toensure that a small primary cancer is not being obscured by these multiplesmall nodes. 2. Surgical changes in the right breast consistent with rightlumpectomy. BI-RADS category 6,biopsy proven malignancy. Report Dictated by Luis M Quintana M.D. ([place]) Dr. GAY Gorman M.D. have personally reviewed and interpreted thisexamination/study. This report was electronically signed by GAY RAMOS M.D. on04/09/2014 11:42 AM . Historical Provider MR ORDERABLES * CREATININE BLOOD - POCT (IP) [facility] (04/04/2014) Creatinine POCT 1.07 0.3 - 1.3 mg/dL [facility] eGFR POCT 60 60 ml/min [facility] 04/04/2014 Historical Provider LAB - POINT OF CA RE ORDERABLES [facility] * CT HEAD WO CONTRAST (05/27/2013 4:26 AM ON AWAKE COUNSELOR) Anatomical Region Laterality Modality Head Other Impressions 05/27/2013 10:57 AM ON AWAKE COUNSELOR IMPRESSION: 1. No acute intracranial process. Preliminary findings were relayed to Dr. Ceja by Dr. Nichols on 05/27/2013 at 5 AM. This report was approved by Philipp Glynn M.D. on 05/27/2013 10:[address] NITA Gorman M.D. have personally reviewed and interpreted this examination/study. This report was electronically signed by NITA BROWN M.D. on 05/27/2013 10:57 AM . Narrative 05/27/2013 10:57 AM ON AWAKE COUNSELOR EXAMINATION: Computed tomography (CT) of the head without contrast HISTORY: Fall after consumption of multiple alcoholic beverages. TECHNIQUE: CT of the head was performed without contrast according to standard protocol. FINDINGS: No prior study is available for comparison. No acute intra- or extra-axial fluid collections are identified. There is mild cerebral volume loss with associated ex vacuo ventricular dilatation. The basilar cisterns are patent. No mass effect or midline shift is seen. The kemp-white matter differentiation is normal. Tiny likely dystrophic calcifications are noted in the left frontal lobe. Periventricular white matter hypoattenuation is indicative of chronic small vessel ischemic disease. Other than mild right and bilateral maxillary sinus disease, the visualized portions of the orbits, paranasal sinuses, and mastoids appear normal. 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 There is left periorbital soft tissue swelling without evidence of underlying acute fracture. Procedure Note Nita Brown MD - 07/03/2017 EXAMINATION: Computed tomography (CT) of the head without contrast HISTORY: Fall after consumption of multiple alcoholic beverages. TECHNIQUE: CT of the head was performed without contrast according tostandard protocol. FINDINGS: No prior study is available for comparison. No acute intra- or extra-axial fluid collections are identified. There ismild cerebral volume loss with associated ex vacuo ventricular dilatation.The basilar cisterns are patent. No mass effect or midline shift is seen.The kemp-white matter differentiation is normal. Tiny likely dystrophic calcifications are notedin the left frontal lobe. Periventricular white matter hypoattenuation isindicative of chronic small vessel ischemic disease. Other than mildright and bilateral maxillary sinus disease, the visualized portions of the orbits, paranasal sinuses, andmastoids appear normal. Postoperative appearance of prior right pterionalcraniotomy for placement of an aneurysm clip in the right middle cranialfossa is present. There is left periorbital soft tissue swelling without evidence of underlying acutefracture. IMPRESSION IMPRESSION: 1. No acute intracranial process. Preliminary findings were relayed to Dr. Ceja by Dr. Nichols on 05/27/2013t 5 AM. This report was approved by Philipp Glynn M.D. on 05/27/201310:30 AM . I, Dr. NITA BROWN M.D. have personally reviewed and interpreted thisexamination/study. This report was electronically signed by NITA BROWN M.D. on 05/27/201310:57 AM . Emilie Adams MD CT ORDERABLES Care Teams Anchorman Relationship Specialty Start Date End Date Naila Person DO [address] [place] [address] PCP - General Internal Medicine 01/18/19
== END 2024-05-18 09:54 | disposition home or self-care (01) ==
LOC: ANHIMG 09:54
PROVIDERS: PCP Internal Medicine; Visit Provider Internal Medicine Hematology & Oncology
DX: Z12.31 Encounter for screening mammogram for malignant neoplasm of breast (principal); C50.911 Malignant neoplasm of unspecified site of right female breast; Z17.0 Estrogen receptor positive status [ER+]; Z90.11 Acquired absence of right breast and nipple; Z85.3 Personal history of malignant neoplasm of breast
CPT/HCPCS: 77063; 77067

== ENCOUNTER 2024-11-04 14:32 | Emergency (ER) | payer OTHER, SELFPAY ==
[2024-11-04 14:45] VITALS: BP 147/76; PULSE 84; RESP 18; TEMP 36.6; O2SAT 98
--- NOTE | 2024-11-04 15:38 | ED_ITS ---
HPI - General Adult General Chief complaint: Unspecified Stated complaint: Throat Issues Time Seen by Provider: 11/04/24 15:39 History of Present Illness HPI narrative: 68-year-old female patient presents to [facility] with complaints of throat issues. Patient states she has had what she feels like mucus coming up to her throat and at times she has some epigastric pain. Patient states she is not taking her famotidine about a month ago which is when the symptoms started. Patient does have history of chronic GERD does drink a lot of ear process a potato chips. Patient denies fevers body aches or chills. Patient states she did take 2 relates today and states that symptoms went away after she took the relates. Related Data Home Medications ?Medication ?Instructions ?Recorded ?Confirmed ?Last Taken ?Type alendronate 70 mg tablet mg PO 04/09/20 Unknown History atorvastatin 20 mg tablet 04/09/20 Unknown History carvedilol 12.5 mg tablet 12.5 mg 04/09/20 Unknown History famotidine 40 mg tablet 40 mg 04/09/20 Unknown History sacubitril 49 mg-valsartan 51 mg 04/09/20 Unknown History tablet (Entresto) aspirin 81 mg tablet 81 mg PO DAILY 11/04/24 Unknown History furosemide 40 mg tablet mg 11/04/24 Unknown History iron 40 mg capsule mg PO 11/04/24 Unknown History spironolactone 25 mg tablet mg 11/04/24 Unknown History Allergies Allergy/AdvReac Type Severity Reaction Status Date / Time No Known Allergies Allergy Verified 11/04/24 15:22 Review of Systems Review of Systems: CONSTITUTIONAL: Denies fever, chills, or sweats. EYES: Denies visual changes, redness, or discharge. ENT: Denies rhinorrhea, congestion, positive sore throat, or otalgia. CARDIOVASCULAR: Denies chest pain, palpitations, or edema. RESPIRATORY: Denies cough or dyspnea. GASTROINTESTINAL: Denies abdominal pain, nausea, vomiting, or diarrhea. GENITOURINARY: Denies dysuria or hematuria. SKIN: Denies rash or itching. MUSCULOSKELETAL: Denies back pain, joint pain, or myalgia. NEUROLOGIC: Denies headache, numbness, or weakness. PSYCHIATRIC: Denies anxiety or depression. [facility] Past Medical History Medical History Hypercholesterolemia GERD (gastroesophageal reflux disease) Osteoporosis Congestive heart failure Family History Family History Mother Hypertension Family history of diabetes mellitus in first degree relative Father Family history of diabetes mellitus in first degree relative Family history of coronary artery disease Other Family history of lung cancer Social History Social History Smoking end date: 04/05/09 Alcohol intake: current Comments At the time of my signature I agree with nursing past medical history, surgical, social, and family history. There is no relevant family history pertinent to the presenting complaint. Exam Narrative: GENERAL: Well-appearing, well-nourished, and in no acute distress. HEAD: Normocephalic, atraumatic. EYES: PERRLA and EOMI. ENT: Nares clear, no rhinorrhea or epistaxis. Mucous membranes moist. Posterior pharynx with no erythema, tonsillar enlargement, exudates or lesions present. Bilateral TMs are clear no erythema foreign bodies the canal. NECK: Supple. No lymphadenopathy CHEST: Clear to auscultation. No respiratory distress. HEART: Regular rate and rhythm. No murmur heard. Normal peripheral pulses. ABDOMEN: Soft, nontender, nondistended, normal active bowel sounds. EXTREMITIES: Normal range of motion. No edema. SKIN: Warm, dry, no rash. NEURO: No focal deficits. Alert and oriented x3. Course Course Level of Care: Express Care Visit Vital Signs Vital signs: Vital Signs Temperature 36.6 C 11/04/24 14:45 Pulse Rate 84 11/04/24 14:45 Respiratory Rate 18 11/04/24 14:45 Blood Pressure 147/76 H 11/04/24 14:45 Pulse Oximetry 98 11/04/24 14:45 Oxygen Delivery Room Air 11/04/24 14:45 Temperature 36.6 C 11/04/24 14:45 Pulse Rate 84 11/04/24 14:45 Respiratory Rate 18 11/04/24 14:45 Blood Pressure 147/76 H 11/04/24 14:45 Pulse Oximetry 98 11/04/24 14:45 Oxygen Delivery Room Air 11/04/24 14:45 The patient has been informed that they may have pre-hypertension or Hypertension based on a BP reading in the department. I recommend that the patient call the primary care provider listed on their discharge instructions or a physician of their choice this week to arrange follow up for further evaluation of possible pre-hypertension or Hypertension Medical Decision Making MDM Narrative Medical decision making narrative: Discussed with patient that this is most likely due to her GERD. Discussed with patient that if the symptoms went away with the antacids this is most likely an acid issue. Encouraged her to continue taking her from 0 to Vikash to help decrease the symptoms. Discussed with patient if her symptoms continue despite taking the famotidine highly recommend that she follow-up with her primary doctor for further evaluation of possible thyroid issues. Patient verbalized understanding of this and denies any other questions or concerns at this time. Differential Diagnosis Differential Diagnosis: Differential diagnosis: Viral pharyngitis, pharyngitis, group A strep, infectious mononucleosis, gonococcal pharyngitis, exudative pharyngitis, oral candidiasis. Chronic allergies, postnasal drip, GERD, abscess formation, but glottitis, retropharyngeal abscess formation, or airway obstruction. Vital Signs Vital Signs: Vital Signs Temperature 36.6 C 11/04/24 14:45 Pulse Rate 84 11/04/24 14:45 Respiratory Rate 18 11/04/24 14:45 Blood Pressure 147/76 H 11/04/24 14:45 Pulse Oximetry 98 11/04/24 14:45 Oxygen Delivery Room Air 11/04/24 14:45 Temperature 36.6 C 11/04/24 14:45 Pulse Rate 84 11/04/24 14:45 Respiratory Rate 18 11/04/24 14:45 Blood Pressure 147/76 H 11/04/24 14:45 Pulse Oximetry 98 11/04/24 14:45 Oxygen Delivery Room Air 11/04/24 14:45 Discharge Plan Discharge Clinical Impression: Chronic GERD Patient Disposition: Home Condition: Stable Instructions: Antibiotic Form, GERD (Gastroesophageal Reflux Disease) (ED) Additional Instructions: Gastroesophageal reflux disease (GERD) is a backflow of acid from the stomach into the swallowing tube (esophagus). Home care These home care steps can help you manage GERD: Maintain a healthy weight. Get help to lose any extra pounds. Avoid lying down after meals. Avoid eating late at night. Elevate the head of your bed by 6 inches. You can do this by placing wooden blocks or bed risers under the head of your bed. Avoid wearing tight-fitting clothes. Avoid foods that might irritate your stomach, such as the following: Alcohol Fat Chocolate Caffeine Spearmint or peppermint Begin an exercise program. You can benefit from simple activities, such as walking or gardening. Break the smoking habit. Enroll in a stop-smoking program to improve your chances of success. Limit alcohol intake to no more than 2 drinks a day. Take your medicines exactly as directed. Don?t skip doses. Avoid oowr-yuh-xiddfip nonsteroidal anti-inflammatory medicines, such as aspirin and ibuprofen, unless recommended by your healthcare provider for certain conditions. If possible, avoid nitrates (heart medicines, such as nitroglycerin and isosorbide dinitrate ). Follow-up with your primary doctor in the next 5-7 days as needed. When to call the healthcare provider Call your healthcare provider immediately if you have any of the following: Trouble swallowing Pain when swallowing Feeling of food caught in your chest or throat Pain in the neck, chest, or back Heartburn that causes you to vomit Vomiting blood Black or tarry stools (from digested blood) More saliva (watering of the mouth) than usual Weight loss of more than 3% to 5% of your total body weight in a month Hoarseness or sore throat that won?t go away Choking, coughing, or wheezing Patient Language: Occitan Prescriptions: No Action atorvastatin 20 mg tablet carvedilol 12.5 mg tablet 12.5 mg famotidine 40 mg tablet 40 mg alendronate 70 mg tablet PO Entresto 49-51 mg tablet furosemide 40 mg tablet spironolactone 25 mg tablet aspirin 81 mg tablet 81 mg PO DAILY iron 40 mg capsule PO Follow-up/Referrals: Naya,Naila Moncada DO [Primary Care Provider] - Time of Disposition: 16:06
== END 2024-11-04 16:12 | disposition home or self-care (01) ==
PROVIDERS: Emergency Provider Nurse Practitioner Family; PCP Internal Medicine
DX: K21.9 Gastro-esophageal reflux disease without esophagitis (principal); E78.00 Pure hypercholesterolemia, unspecified; M81.0 Age-related osteoporosis without current pathological fracture; I50.9 Heart failure, unspecified; Z87.891 Personal history of nicotine dependence; Z79.82 Long term (current) use of aspirin
CPT/HCPCS: 99213; G0463

== ENCOUNTER 2025-01-31 08:47 | Outpatient (CLI) | payer OTHER, SELFPAY ==
[2025-01-31 09:02] LABS: Hematocrit 38.1 % (37.0-47.0); Hemoglobin 12.0 g/dL (12.0-15.0); Immature Granulocyte Percent A 0.1 % (0-0.5); Lymphocytes Absolute Auto 1.70 K/mm3 (0.9-3.2); Mean Corpuscular HGB Conc 31.5 g/dl (32-36); Mean Corpuscular Hemoglobin 30.6 pg (26-34); Mean Corpuscular Volume 97.2 fl (80-100); Nucleated Red Blood Cells Absolute Auto 0.000 K/mm3 (0.0-0.012); Nucleated Red Blood Cells Perc 0.0 % (0.0-0.2); Platelet Count Result 225 k/mm3 (150-375); Red Blood Count 3.92 M/mm3 (4.2-5.4); White Blood Count 8.0 K/mm3 (4.5-10.0)
--- OUTSIDE RECORDS SUMMARY | 2025-01-31 09:19 | XMS_ITS | Encounter Summary ---
Author Organization [facility] Facility Care Team Providers Care Timber Watchman Name Role Phone Naila Person DO Primary Care Provider [phone] Sania Lopez DO Unavailable [phone] Sultan Antwan Rudd MD Unavailable [phone] Sultan Antwan Rudd MD Unavailable [phone] Mark Pierre MD Unavailable [phone] Encounter Details Date Type Department Care Team (Latest Contact Info) Description 06/04/2017 Orders Only [facility] ProviderAmy MD [address] [place] [id number] Social History Tobacco Use Types Packs/Day Years Used Date Smoking Tobacco: Never Assessed Comments Unknown Sex and Gender Information Value Date Recorded Sex Assigned at Not on file Legal Sex Female 3:35 PM MEDIC TECHNICIAN Gender Identity Not on file Sexual Orientation Not on file documented as of this encounter Plan of Treatment Not on file documented as of this encounter Procedures Procedure Name Priority Date/Time Associated Diagnosis Comments SCAN - LABS 06/09/2017 12:00 AM MEDIC TECHNICIAN documented in this encounter Results * SCAN - LABS (06/09/2017 12:00 AM MEDIC TECHNICIAN) Narrative 06/09/2017 12:00 AM MEDIC TECHNICIAN Ordered by an unspecified provider. Historical Provider Final Res ult documented in this encounter Visit Diagnoses Not on filedocumented in this encounter Additional Health Concerns Infection Onset Date Last Indicated Resolved Time COVID19 Comment:01/19/2020 02/13/2020 02/12/2020 05/19/2021 3:[address] COVID: Suspected 05/11/2022 05/11/2022 05/11/2022 2:41 PM MEDIC TECHNICIAN documented as of this encounter Care Teams Timber Watchman Relationship Specialty Start Date End Date Naila Person DO PCP - General 06/14/17 Sania Lopez DO Referring Physician General Surgery 03/14/18 Sultan Antwan Rudd MD [address] [place] [address] [address] Production Dispatcher Cardiovascular Disease 11/10/18 11/10/18 Sultan Antawn Rudd MD [address] [place] [address] [address] Production Dispatcher Cardiovascular Disease 11/15/18 Mark Pierre MD [address] [place] [address] [address] Medical Oncologist/City Magistrate Medical Oncology 03/08/19 documented as of this encounter
--- OUTSIDE RECORDS SUMMARY | 2025-01-31 09:19 | XMS_ITS | Encounter Summary ---
Author Organization [facility] Facility Care Team Providers Care Etcher Enameling Name Role Phone Naila Person DO Primary Care Provider [phone] Sania Lopez DO Unavailable [phone] Sultan Antwan Rudd MD Unavailable [phone] Sultan Antwan Rudd MD Unavailable [phone] Mark Pierre MD Unavailable [phone] Encounter Details Date Type Department Care Team (Latest Contact Info) Description 12/28/2015 Orders Only [facility] ProviderAmy MD [address] [place] [address] Social History Tobacco Use Types Packs/Day Years Used Date Smoking Tobacco: Never Assessed Comments Unknown Sex and Gender Information Value Date Recorded Sex Assigned at Not on file Legal Sex Female 3:35 PM BUSINESS SOLUTIONS DIRECTOR Gender Identity Not on file Sexual Orientation [...] AM CDT Ordered by an unspecified provider. [facility] Provider Final Res ult * CARDIOLOGY REPORT (01/08/2016 12:00 AM CDT) Anatomical Region Laterality Modality Other Narrative 01/08/2016 12:00 AM CDT Ordered by an unspecified provider. [facility] Provider CV CARDIAC SERVICES PROCE DURES Final Result * CARDIOLOGY REPORT (12/30/2015 12:00 AM CDT) Anatomical Region Laterality Modality Other Narrative 12/30/2015 12:00 AM CDT Ordered by an unspecified provider. [facility] Provider CV CARDIAC SERVICES PROCE DURES Final Result * CARDIOLOGY REPORT (12/30/2015 12:00 AM CDT) Anatomical Region Laterality Modality Other Narrative 12/30/2015 12:00 AM CDT Ordered by an unspecified provider. [facility] Provider CV CARDIAC SERVICES PROCE DURES Final Result documented in this encounter Visit Diagnoses Not on filedocumented in this encounter Additional Health Concerns Infection Onset Date Last Indicated Resolved Time COVID19 Comment:01/19/2020 02/13/2020 02/12/2020 05/19/2021 3:[address] COVID: Suspected 05/11/2022 05/11/2022 05/11/2022 2:41 PM BUSINESS SOLUTIONS DIRECTOR documented as of this encounter Care Teams Etcher Enameling Relationship Specialty Start Date End Date Naila Person DO PCP - General 06/14/17 Sania Lopez DO Referring Physician General Surgery 03/14/18 Sultan Antwan Rudd MD [address] [place] [address] Electro Optics Engineer Cardiovascular Disease 11/10/18 11/10/18 Sultan Antwan Rudd MD [address] [place] [address] [address] Electro Optics Engineer Cardiovascular Disease 11/15/18 Mark Pierre MD [address] [place] [address] [address] Medical Oncologist/Specialty Trimmer Medical Oncology 03/08/19 documented as of this encounter
--- OUTSIDE RECORDS SUMMARY | 2025-01-31 09:19 | XMS_ITS | Encounter Summary ---
Author Organization [facility] Facility Care Team Providers Care Vegetable Farming Supervisor Name Role Phone Naila ePrson DO Primary Care Provider [phone] Sania Lopez DO Unavailable [phone] Sultan Antwan Rudd MD Unavailable [phone] Sultan Antwan Rudd MD Unavailable [phone] Mark Pierre MD Unavailable [phone] Encounter Details Date Type Department Care Team (Latest Contact Info) Description 12/27/2015 Orders Only [facility] ProviderAmy MD [address] [place] [address] Social History Tobacco Use Types Packs/Day Years Used Date Smoking Tobacco: Never Assessed Comments Unknown Sex and Gender Information Value Date Recorded Sex Assigned at Not on file Legal Sex Female 3:35 PM EXTENSION SERVICE SUPERVISOR Gender Identity Not on file Sexual [...] COVID: Suspected 05/11/2022 05/11/2022 05/11/2022 2:41 PM EXTENSION SERVICE SUPERVISOR documented as of this encounter Care Teams Vegetable Farming Supervisor Relationship Specialty Start Date End Date Naila Person DO PCP - General 06/14/17 Sania Lopez DO Referring Physician General Surgery 03/14/18 Sultan Antwan Rudd MD [address] [place] [address] [address] Maid Supervisor Cardiovascular Disease 11/10/18 11/10/18 Sultan Antwan Rudd MD [address] [place] [address] Maid Supervisor Cardiovascular Disease 11/15/18 Mark Pierre MD [address] [place] [address] Medical Oncologist/Assistant Kitchen Manager Medical Oncology 03/08/19 documented as of this encounter
--- OUTSIDE RECORDS SUMMARY | 2025-01-31 09:19 | XMS_ITS | Encounter Summary ---
Author Organization [facility] Facility Care Team Providers Care Repair Supervisor Name Role Phone Naila Person DO Primary Care Provider [phone] Sania Lopez DO Unavailable [phone] Sultan Antwan Rudd MD Unavailable [phone] Sultan Antwan Rudd MD Unavailable [phone] Mark Pierre MD Unavailable [phone] Encounter Details Date Type Department Care Team (Latest Contact Info) Description 01/25/2018 Orders Only [facility] ProviderAmy MD [address] [place] [address] Social History Tobacco Use Types Packs/Day Years Used Date Smoking Tobacco: Never Assessed Comments Unknown Sex and Gender Information Value Date Recorded Sex Assigned at Not on file Legal Sex Female 3:35 PM CAPACITOR ASSEMBLER Gender Identity Not on file Sexual Orientation Not on file documented as of this encounter Plan of Treatment Not on file documented as of this encounter Procedures Procedure Name Priority Date/Time Associated Diagnosis Comments SCAN - LABS 05/04/2018 12:00 AM CAPACITOR ASSEMBLER documented in this encounter Results * SCAN - LABS (05/04/2018 12:00 AM CAPACITOR ASSEMBLER) Narrative 05/04/2018 12:00 AM CAPACITOR ASSEMBLER Ordered by an unspecified provider. Historical Provider Final Res ult documented in this encounter Visit Diagnoses Not on filedocumented in this encounter Additional Health Concerns Infection Onset Date Last Indicated Resolved Time COVID19 Comment:01/19/2020 02/13/2020 02/12/2020 05/19/2021 3:[address] COVID: Suspected 05/11/2022 05/11/2022 05/11/2022 2:41 PM CAPACITOR ASSEMBLER documented as of this encounter Care Teams Repair Supervisor Relationship Specialty Start Date End Date Naila Person DO PCP - General 06/14/17 Sania Lopez DO Referring Physician General Surgery 03/14/18 Sultan Antwan Rudd MD [address] [place] [address] [address] Athletic Agent Cardiovascular Disease 11/10/18 11/10/18 Sultan Antwan Rudd MD [address] [place] [address] [address] Athletic Agent Cardiovascular Disease 11/15/18 Mark Pierre MD [address] [place] [address] [address] Medical Oncologist/Speech Pathologist Medical Oncology 03/08/19 documented as of this encounter
--- OUTSIDE RECORDS SUMMARY | 2025-01-31 09:19 | XMS_ITS | Clinical Summary ---
Author Organization [facility] Address [address] [place] [address] Care Team Providers Care Instrumentation Instructor Name Role Phone Naila Preson DO Primary Care Provider [phone] Sania Lopez DO Unavailable [phone] Sultan Antwan Rudd MD Unavailable [phone] Mark Pierre MD Unavailable [phone] Allergies Active Allergy Reactions Criticality Noted Date Comments Nut Flavor Anaphylaxis High 03/24/2018 Peanut Anaphylaxis High 09/15/2018 Medications aspirin 81 mg enteric coated tabletIndications: heart health Take 1 tablet (81 mg total) by mouth restaurant inspector before breakfast 6 Active calcium carbonate-vitamin D3 600 mg calcium- 200 unit capsuleIndications :Hypocalcemia Prevention Take 1 capsule by mouth nightly 6 Active atorvastatin (LIPITOR) 20 mg tabletIndications: hyperlipidemia Take 1 tablet (20 mg total) by mouth nightly 8 Active furosemide (LASIX) 40 mg tabletIndications: Edema Take 1 tablet (40 mg total) by mouth restaurant inspector before breakfast Active famotidine (PEPCID) 40 mg tabletIndications: gastroesophageal reflux disease Take 1 tablet (40 mg total) by mouth restaurant inspector before breakfast Active magnesium gluconate 200 mg tabletIndications: hypomagnesemia Take 1 tablet (200 mg total) by mouth restaurant inspector before breakfast Active cod liver oil capsule Take 1 capsule by mouth restaurant inspector before breakfast Active garlic 1,000 mg capsule Take 1 capsule by mouth nightly Active alendronate (FOSAMAX) 70 mg tabletIndications: Post-Menopausal Osteoporosis Take 1 tablet (70 mg total) by mouth every 7 days 0 Active albuterol HFA (PROVENTIL HFA,VENTOLIN HFA,PROAIR HFA) 90 mcg/actuation inhaler Inhale 1 puff as needed for shortness of breath 0 Active cyanocobalamin (Vitamin B-12) 100 mcg tabletIndications: Prevention of Vitamin B12 Deficiency Take 1 tablet (100 mcg total) by mouth nightly Active ferrous sulfate 325 mg (65 mg of elemental iron) tabletIndications: Iron Deficiency Anemia Take 1 tablet (325 mg total) by mouth restaurant inspector before breakfast Active zinc 50 mg tabletIndications: Zinc Deficiency Take 1 tablet by mouth nightly Active traZODone (DESYREL) 100 mg tabletIndications: insomnia associated with depression Take 1 tablet (100 mg total) by mouth nightly 3 Active ALPRAZolam (XANAX) 0.5 mg tablet Take 1 tablet (0.5 mg total) by mouth nightly as needed (dentist appt) 3 Active carvediloL (COREG) 25 mg tabletIndications: Ventricular premature depolarization,PVC s (premature ventricular contractions),Dila ishaan cardiomyopathy (HCC) TAKE 1 TABLET BY MOUTH TWICE A DAY 180 tablet 1 5 Active methylPREDNISolone (Medrol, Elier,) 4 mg Dosepack Take as directed on package 1 packet 5 Active methylPREDNISolone (MEDROL DOSEPACK) 4 mg Dosepack Take as directed on package 1 packet 5 Active spironolactone (ALDACTONE) 25 mg tabletIndications: Dilated cardiomyopathy (HCC) TAKE 1 TABLET (25 MG TOTAL) BY MOUTH DAILY. 90 tablet 3 5 08/08/19 26 Active sacubitriL-valsart an (Entresto) 49-51 mg tablet TAKE 1 TABLET BY MOUTH TWICE A DAY 120 tablet 2 5 Active Active Problems Problem Noted Date Diagnosed Date Anxiety 04/21/2024 Biventricular automatic impl antable cardioverter defibrillator in situ 04/21/2024 PVC (premature ventricular contraction) 07/21/19 Assessment & Plan (11/24/2022 11:22 AM CDT): PVCs s/p PVC with site of origin along the inferomedial papillary muscle of the left ventricle - 07/20/2022 PVC burden decreased <1% post ablation She continues to feel well with increased energy and decreased SOB Dilated cardiomyopathy 02/05/2022 Assessment & Plan (08/18/2022 3:30 PM CDT): NICM with associated HFrEF s/p DIRECTOR OF MARKET ANALYSIS-D on 02/13/2020 Continue GDMT per her blanket folder Pain in right hand 04/30/2021 Abdominal pain, RLQ 03/24/2021 Age-related osteoporosis wit hout current pathological fracture 03/24/2021 Atherosclerosis of aorta 03/24/2021 Chronic combined systolic and diastolic heart fa ilure 03/24/2021 Cough 03/24/2021 Dysphagia 03/24/2021 Gastric reflux 03/24/2021 Gastro-esophageal reflux disease without esophag itis 03/24/2021 Hypertensive heart disease w ith congestive heart failure and chronic kidney disease 03/24/2021 Lobar pneumonia 03/24/2021 Morbid (severe) obesity due to excess [...] thresholds. Assessment & Plan (03/21/2020 2:04 PM EXTRUDER OPERATOR VERTICAL): Factor change. Discussed in detail with patient. If makes matters worse come back if not for occasional episodes can change position Biventricular ICD (implantab le cardioverter-defibrillator) in place 02/21/2020 Assessment & Plan (11/24/2022 11:24 AM CDT): DIRECTOR OF MARKET ANALYSIS-D is functioning appropriately as programmed Lead impedances, [...] monitoring quarterly Cardiac resynchronization th erapy defibrillator (DIRECTOR OF MARKET ANALYSIS-D) in place 02/20/2020 Assessment & Plan (06/27/2020 1:32 PM CDT): Check shows normal function. Underlying rhythm sinus left bundle-branch block. No a pacing 90 8% LV paced. Excellent lead function. Battery 12 years. No arrhythmias Assessment & Plan (05/28/2020 6:54 PM EXTRUDER OPERATOR VERTICAL): Inserted 02/13/2020. Assessment & Plan (03/21/2020 2:13 PM EXTRUDER OPERATOR VERTICAL): Normal function. Underlying rhythm sinus with left bundle-branch block. No a pacing 99% V paced. Excellent lead function. LV thresholds 0.5 volts at 0.4 milliseconds. Battery 12 years. No arrhythmias Assessment & Plan (02/20/2020 6:21 PM EXTRUDER OPERATOR VERTICAL): Inserted 02/13/2020. Assessment & Plan (02/20/2020 2:01 PM EXTRUDER OPERATOR VERTICAL): Medtronic implanted February 13, 2020. Good clinical [...] 122/70. Assessment & Plan (05/29/2020 4:39 PM EXTRUDER OPERATOR VERTICAL): Salt restriction. Carvedilol. Lasix. Entresto. Blood pressure 140/80. Assessment & Plan (03/21/2020 2:26 PM EXTRUDER OPERATOR VERTICAL): Blood pressure runs at home systolic 130 diastolic in the 80s or below Assessment & Plan (02/21/2020 3:40 PM EXTRUDER OPERATOR VERTICAL): Blood pressure 144/80. Salt restriction. Continue the current regimen. Assessment & Plan (12/20/2019 4:21 PM CDT): Blood pressure 108/62. Salt restriction. Continue the current regimen. Assessment & Plan (08/16/2019 2:30 PM CDT): Blood pressure 130/80. Continue the current regimen. Salt restriction. Assessment & Plan (05/24/2019 4:32 PM EXTRUDER OPERATOR VERTICAL): Blood pressure 112/70. Salt restriction. Continue the current regimen. Assessment & Plan (03/09/2019 9:08 AM EXTRUDER OPERATOR VERTICAL): Blood pressure 126/80. Salt restriction. Continue the current regimen. Assessment & Plan (02/08/2019 2:27 PM EXTRUDER OPERATOR VERTICAL): Blood pressure 128/74. Salt restriction. Continue the current regimen. Personal history of congestive heart failure 09/2018 Assessment & Plan (09/26/2020 11:47 AM CDT): Stable the treatment.. Salt restriction. Lasix for decongestion. Assessment & Plan (05/28/2020 7:02 PM EXTRUDER OPERATOR VERTICAL): Salt restriction. Blood pressure control. Lasix for decongestion. On 05/07/2020 BUN 19, creatinine 0.72, potassium 4.2, sodium 138. GFR more than 60. Stage 2 kidney disease. Assessment & Plan (02/20/2020 6:25 PM EXTRUDER OPERATOR VERTICAL): Salt restriction. Blood pressure control. Lasix for [...] 142. Assessment & Plan (05/24/2019 10:55 AM EXTRUDER OPERATOR VERTICAL): Salt restriction. Blood pressure control. Lasix for decongestion. The BNP on 02/24/2019 was 186. BUN 16, creatinine 0.9, sodium 142, potassium 3.9. Assessment & Plan (03/08/2019 5:25 PM EXTRUDER OPERATOR VERTICAL): Was hospitalized at [facility] a few months back with congestive heart failure. Salt restriction. Blood pressure control. Lasix for decongestion. The BNP on 02/24/2019 was 186. Potassium 3.9, sodium 142, BUN 16, creatinine 0.9. Assessment & Plan (02/08/2019 2:30 PM EXTRUDER OPERATOR VERTICAL): Stable today. Salt restriction. Lasix for decongestion. Check SMA 7 and BNP level today. Left ventricular systolic dysfunction 11/16/2018 Assessment & Plan (11/24/2022 11:23 AM CDT): NICM with associated HFrEF s/p DIRECTOR OF MARKET ANALYSIS-D Euvolemic on exam Assessment & Plan (09/25/2020 3:46 PM CDT): Biventricular pacemaker. Carvedilol. Entresto. Ejection fraction has improved as described above. Assessment & Plan (06/27/2020 1:26 PM CDT): Likely significantly better with DIRECTOR OF MARKET ANALYSIS. Continue Entresto Assessment & Plan (05/29/2020 4:40 PM EXTRUDER OPERATOR VERTICAL): Worsening ejection fraction. Carvedilol. The lisinopril was changed to the Entresto. Follow up echo Doppler before the next appointment. Assessment & Plan (02/21/2020 3:41 PM EXTRUDER OPERATOR VERTICAL): Worsening ejection fraction. Carvedilol. Lisinopril was changed [...] home. Assessment & Plan (05/24/2019 4:31 PM EXTRUDER OPERATOR VERTICAL): Echo 11/09/2018 showed an ejection fraction 40-50%. Escalating doses of the lisinopril and the carvedilol. Increase the dose of the carvedilol to 12.5 mg p.o. b.i.d.. Return 6 weeks and try to increase the dose of lisinopril at that appointment. Assessment & Plan (03/09/2019 9:09 AM EXTRUDER OPERATOR VERTICAL): Echo 11/09/2018 showed an ejection fraction of 40-50%. Carvedilol. Lisinopril. Will gradually escalate the doses. Increase the Coreg to 6.25 mg p.o. b.i.d. on this visit. Assessment & Plan (02/08/2019 2:29 PM EXTRUDER OPERATOR VERTICAL): Echo 11/09/2018 showed mild left ventricular systolic [...] 12/28/2015. Assessment & Plan (05/28/2020 7:03 PM EXTRUDER OPERATOR VERTICAL): Negative stress test 12/28/2015. Assessment & Plan (02/20/2020 6:25 PM EXTRUDER OPERATOR VERTICAL): Negative stress test 12/28/2015. Assessment & Plan (12/19/2019 5:46 PM CDT): Negative stress test 12/28/2015. Assessment & Plan (08/15/2019 11:33 AM CDT): Negative stress test 12/28/2015. Assessment & Plan (05/24/2019 10:54 AM EXTRUDER OPERATOR VERTICAL): Negative stress test 12/28/2015. Assessment & Plan (03/08/2019 5:21 PM EXTRUDER OPERATOR VERTICAL): Negative and stress test 12/28/2015. Assessment & Plan (02/07/2019 5:18 PM EXTRUDER OPERATOR VERTICAL): Negative Lexiscan stress test 12/28/2015. Assessment & [...] 03/14/2018:Stage Unknown(cTX, cN1(f), cM0, G3, ER: Negative, OK: Negative, HER2: Negative) - Signed by Hever [...] one dose IV lasix 20 mg - Fan TVtronic interrogated device and turned DIRECTOR OF MARKET ANALYSIS pacing on - Continue home meds Assessment & Plan (09/25/2020 3:47 PM CDT): Asymptomatic PVCs on the EKG. Assessment & Plan (06/27/2020 1:27 PM CDT): [place] very low. No additional treatment needed Assessment & Plan (05/28/2020 7:03 PM EXTRUDER OPERATOR VERTICAL): Asymptomatic PVCs on the EKG. No palpitations. Assessment & Plan (03/21/2020 2:26 PM EXTRUDER OPERATOR VERTICAL): [place] low by check Assessment & Plan (02/20/2020 6:26 PM EXTRUDER OPERATOR VERTICAL): Asymptomatic PVCs on the EKG. No palpitations . Assessment & Plan (12/19/2019 5:46 PM CDT): Asymptomatic PVCs on the EKG. Not significant. Assessment & Plan (08/15/2019 11:31 AM CDT): Asymptomatic PVCs on the EKG. Not significant. Assessment & Plan (05/24/2019 10:54 AM EXTRUDER OPERATOR VERTICAL): Asymptomatic PVCs seen on the EKG. Assessment & Plan (03/08/2019 1:01 PM EXTRUDER OPERATOR VERTICAL): Asymptomatic PVCs seen on the EKG. Assessment & Plan (02/08/2019 2:26 PM EXTRUDER OPERATOR VERTICAL): PVCs on the EKG. Asymptomatic. EKG today [...] Plan (06/27/2020 1:25 PM CDT): Treated with DIRECTOR OF MARKET ANALYSIS Assessment & Plan (05/29/2020 4:40 PM EXTRUDER OPERATOR VERTICAL): Chronic left bundle branch block associated with cardiomyopathy. On 12/06/2019 the echo showed worsening of the ejection fraction less than 30%. Carvedilol. The lisinopril was changed to the Entresto. Underwent Bi V pacemaker insertion 02/13/2020. Repeat the echo Doppler before the next appointment. Assessment & Plan (03/21/2020 2:13 PM EXTRUDER OPERATOR VERTICAL): DIRECTOR OF MARKET ANALYSIS 02/13/2020 Assessment & Plan (02/20/2020 6:21 PM EXTRUDER OPERATOR VERTICAL): Chronic left bundle branch block associated with cardiomyopathy. On 12/06/2019 the echo showed worsening of the left ventricular systolic function ejection fraction less than 30%. Carvedilol. The lisinopril was discontinued in the Entresto was started. Will gradually increase the dose. Underwent Bi V pacemaker insertion 02/13/2020. Assessment & Plan (02/05/2020 11:02 AM EXTRUDER OPERATOR VERTICAL): I spent a total of 30 Face to Face minutes of which more than 50% of the time was spent in counseling and coordination of care. This time included: DIRECTOR OF MARKET ANALYSIS. Pacemakers versus defibrillators. Risk of implant not limited to bleeding infection pneumothorax. She is quite interested in having DIRECTOR OF MARKET ANALYSIS and once a had a protection of [...] Lisinopril. Assessment & Plan (05/24/2019 10:57 AM EXTRUDER OPERATOR VERTICAL): Chronic left bundle branch block. Associated with cardiomyopathy. Ejection fraction by echo on 11/09/2018 was 40-50%. Carvedilol. Lisinopril. Assessment & Plan (03/08/2019 1:03 PM EXTRUDER OPERATOR VERTICAL): Chronic left bundle branch block. Associated with cardiomyopathy. Echo Doppler 11/09/2018 showed an ejection fraction of 40-50%. Carvedilol. Lisinopril. Assessment & Plan (02/08/2019 2:28 PM EXTRUDER OPERATOR VERTICAL): Chronic. The echo Doppler 11/09/2018 showed mild [...] stenosis.. Assessment & Plan (05/28/2020 7:00 PM EXTRUDER OPERATOR VERTICAL): Echo Doppler 12/06/2019 showed mild aortic valve stenosis with a peak gradient 23, mean gradient 12, aortic valve area 1.77 centimeter sq. No AR. Assessment & Plan (02/20/2020 6:24 PM EXTRUDER OPERATOR VERTICAL): Echo Doppler 12/06/2019 showed mild aortic valve [...] stenosis. Assessment & Plan (05/24/2019 10:56 AM EXTRUDER OPERATOR VERTICAL): Echo Doppler 11/09/2018 showed mild aortic valve stenosis. Assessment & Plan (03/08/2019 1:04 PM EXTRUDER OPERATOR VERTICAL): Echo Doppler 11/09/2018 showed mild aortic valve stenosis with no significant change since 06/15/2017 when the peak aortic valve gradient was 24, mean gradient 9, aortic valve area 1.5 centimeter sq. Assessment & Plan (02/07/2019 5:16 PM EXTRUDER OPERATOR VERTICAL): Echo 11/09/2018 continues to show mild aortic [...] 92. Assessment & Plan (05/28/2020 6:56 PM EXTRUDER OPERATOR VERTICAL): Low-fat low-cholesterol diet. Atorvastatin. On 05/07/2020 triglycerides 113, LDL 92. Assessment & Plan (02/20/2020 6:19 PM EXTRUDER OPERATOR VERTICAL): Low-fat low-cholesterol diet. Atorvastatin. On 11/18/2018 the LDL was 93. Assessment & Plan (12/19/2019 5:40 PM CDT): Low-fat low-cholesterol diet. Atorvastatin. On 11/18/2018 the LDL was 93. Assessment & Plan (08/15/2019 11:32 AM CDT): Low-fat low-cholesterol diet. Atorvastatin 20 mg bedtime daily. On 11/18/2018 the LDL was 93. Assessment & Plan (05/24/2019 10:58 AM EXTRUDER OPERATOR VERTICAL): Low-fat low-cholesterol diet. Atorvastatin 20 mg bedtime daily. On 11/18/2018 the LDL was 93. Before that it was 134 . Assessment & Plan (03/08/2019 1:02 PM EXTRUDER OPERATOR VERTICAL): Low-fat low-cholesterol diet. Atorvastatin 20 mg bedtime daily. On 11/18/2018 the LDL was 93. Previously it was 134. Significant improvement. Assessment & Plan (02/07/2019 5:13 PM EXTRUDER OPERATOR VERTICAL): Low-fat low-cholesterol diet. Pravastatin 40 mg bedtime [...] next few days. Alcohol use with intoxication 05/27/2013 Fall on same level from slip ping, tripping and stumbling without subsequent striking against object, initial encounter 05/27/2013 Encounters Date Type Department Care Team Description 01/11/2025 Telephone [facility] Cardiology [facility] [address] [address] Sultan Antwan Rudd MD 01/11/2025 Orders Only [facility] Cardiology [facility] [address] [address] Sultan Antwan Rudd MD 12/25/2024 7:30 AM CDT Ancillary Procedure [facility] Cardiology [address] [facility] [address] [address] Dilated cardiomyopathy (HCC); PVCs (premature ventricular contractions); LBBB (left bundle branch block); Cardiac resynchronization therapy defibrillator (DIRECTOR OF MARKET ANALYSIS-D) in place; Left bundle branch block from Last 3 Months Immunizations Immunization Administration Dates Next Due Influenza, Unspecified 01/20/2018,01/12/2017, Surgical History Surgery Date Site/Laterality Comments BREAST BIOPSY Right MASTECTOMY Right 2011 & 2013 BREAST RECONSTRUCTION 04/05/2014 - 04/04/2015 APPENDECTOMY 04/05/1975 - 04/04/1976 SECTION x 2 COLONOSCOPY CARPAL TUNNEL RELEASE Left 05/09/21 CARDIAC DEFIBRILLATOR PLACEMENT 02/13/2020 Left Medtronic DIRECTOR OF MARKET ANALYSIS-D VAGINAL DELIVERY x 1 w/ epidural CARPAL TUNNEL RELEASE 05/02/2024 Right Medical History Medical History Date Comments Breast cancer (HCC) Right Hypertension Hypercholesteremia Gastric reflux Cardiomyopathy Arrhythmia ablation and AIC D placement 02/13/2020 GERD (gastroesophageal reflux disease) 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--was left blind in left eye Family History [...] on file Legal Sex Female 3:35 PM EXTRUDER OPERATOR VERTICAL Gender Identity Not on file Sexual Orientation Not on file Obstetrics History Last Filed Vital Signs Vital Sign Reading Time Taken Comments Blood Pressure 132/76 09/18/2024 9:30 AM CDT Pulse 89 09/18/2024 9:30 AM CDT Temperature 36.2 C (97.2 F) 05/02/2024 8:05 AM EXTRUDER OPERATOR VERTICAL Respiratory Rate 18 05/02/2024 8:35 AM EXTRUDER OPERATOR VERTICAL Oxygen Saturation 96% 09/18/2024 9:30 AM CDT Inhaled Oxygen Concentration - - Weight 93.9 kg (207 lb) 09/18/2024 9:30 AM CDT Height 152.4 cm (5') 05/02/2024 5:57 AM EXTRUDER OPERATOR VERTICAL Body Mass Index 40.43 05/02/2024 5:57 AM EXTRUDER OPERATOR VERTICAL Plan of Treatment Health Maintenance Due Date Last Done Comments Colon Cancer Screening-Colonoscopy 1955 Depression Screening 1955 Hepatitis C Screening 1955 DTaP/Tdap/Td Vaccine (1 - Tdap) 1964 Hepatitis B Screening 11/11/1971 Zoster Vaccine (1 of 2) 11/11/2003 Well Visit 65+ 2018 Osteoporosis Screening-Bone Density Scan 12/11/2018 12/11/2016, 01/30/2013 Pneumococcal vaccine 65+ (2 of 2 - PPSV23, PCV20, or PCV21) 03/15/2019 01/18/2019 Breast Cancer Screening-Mammogram 01/31/2020 019 Fall Risk Assessment 07/22/2023 07/21/2022 Influenza Vaccine (#1) 2024 , 01/18/2019, 01/20/2018, Additional history exists Medical Devices Implanted Type Area Health And Safety Representative Device Identifier Shelf Expiration Date Model / Serial / Lot Icd ICD Left: Chest [employer] Vascade Mvp 6-12fr Venous Closure [id number] - [id number] - [id number] Implanted:Qty: 1 on 07/20/2022 by Raudel Gallardo MD at [facility] Vascular Closure Device Right: Femoral Vein [employer] 12/05/2023 [id number] [id number] / [id number] / [id number] [employer] Vascade Mvp 6-12fr Venous Closure [id number] - [id number] - [id number] Implanted:Qty: 1 on 07/20/2022 by Raudel Gallardo MD at [facility] Vascular Closure Device Left: Femoral Vein [employer] 12/30/2023 [id number] [id number] / [id number] / [id number] [employer] Vascade Mvp 6-12fr Venous Closure [id number] - [id number] - [id number] Implanted:Qty: 1 on 07/20/2022 by Raudel Gallardo MD at [facility] Vascular Closure Device Left: Femoral Vein [employer] 04/04/2025 [id number] [id number] / [id number] / [id number] [id number] Over[employer] Angio-Seal Vip 6fr Closere Device [id number] - [id number] Implanted:Qty: 1 on 05/12/2022 by Jaspreet Owens MD at [facility] 01/02/2023 [id number] / [id number] Procedures Procedure Name Priority Date/Time Associated Diagnosis Comments LIPID PANEL Routine 01/11/2025 8:48 AM CDT DEVICE CHECK - REMOTE Routine 12/25/2024 11:06 AM CDT Dilated cardiomyopathy (HCC) PVCs (premature ventricular contractions) LBBB (left bundle branch block) Cardiac resynchronization therapy defibrillator (DIRECTOR OF MARKET ANALYSIS-D) in place Left bundle branch block DEXA AXIAL SKELETON BONE DENSITY 1 OR MORE SITES Routine 12/11/2016 12:20 PM CDT from Last 3 Months or Most Recently Relevant to Health Maintenance Results * Lipid panel (01/11/2025 8:48 AM CDT) SCRIBED Cholesterol, Total 152 30 - 199 mg/dL EXTERNAL LAB SCRIBED Triglycerides 143 <=149 mg/dL EXTERNAL LAB SCRIBED HDL 40 >=40 mg/dL EXTERNAL LAB SCRIBED LDL 83 <=129 mg/dL EXTERNAL LAB Scribed Non-HDL Cholesterol 0 NONE mg/dL EXTERNAL LAB SCRIBED Total Cholesterol/HDL Ratio 0 NONE EXTERNAL LAB Blood us Sultan Antwan Rudd MD LAB BLOOD ORDERABLES Edited R esult - Final EXTERNAL LAB * DEVICE CHECK - REMOTE (12/25/2024 11:06 AM CDT) Anatomical Region Laterality Modality Other Narrative 12/25/2024 3:15 PM CDT Table formatting from the original result was not included. Patient ID: Cori Edmondson is a 69 y.o. female. This patient has a(n) Medtronic cardiac resynchronization therapy defibrillator. They had a routine remote transmission on 12/25/2024 Device implant indications: NICM Interrogation of the patient's device demonstrates the following: Presenting EGM: /BP @ 87 bpm Mode: DDD 50/130 bpm Device Settings Right Atrium Right Ventricle Left Ventricle Sensitivity 0.30 mV 0.30 mV Pacing output 1.5 V @ 0.4 ms 2.0 V @ 0.4 ms 3.25 V @ 0.6 ms Testing Measurements Right Atrium Right Ventricle Left Ventricle Sensitivity 2.9 mV 10.8 mV Impedance 304 ohms 494 ohms 361 ohms HV lead impedance 39 ohms Pacing threshold 0.5 V @ 0.4 ms 0.5 V @ 0.4 ms 2.75 V @ 0.60 ms Pacing % 0.3% 98.1% DIRECTOR OF MARKET ANALYSIS Battery Status: 1.7 years to BALJINDER. Charge time 4.2 seconds. Episodes last 90 days: None Comments: Programming appropriate for device measurements. Measured data stable. LV threshold high/stable over time. See attached report. Medications: Anticoagulant(s): n/a Antiarrhythmic(s): carvedilol Plan: Remote device checks quarterly, as scheduled. In-office device check scheduled on 09/25/2025. Amirah Mercado RN Sultan Antwan Rudd MD [facility] PROCEDURE S Final Result * Dexa Axial Skeleton Bone Density 1 [...] Rodriguez M.D. AB: 02:14 PM 02:14 PM [facility] [EOD] Narrative 12/29/2016 2:17 PM CDT EXAMINATION: DXA Bone Density Examination (Hip, Radius, and Spine). HISTORY: 61-year-old post menopausal female, screening for osteoporosis. Current Height: 59.5 inches Maximum Height: 60 inches Weight: 195 pounds RISK FACTORS: Alcohol use. COMPARISON(S): January 30, 2013. WORT EXTRACTOR/MODEL: Hapzing SL [id number]. FINDINGS: AP lumbar spine L1-L4 Total BMD is 0.872 g/xl2W-jmfko is -1.6 Most recent prior BMD was 0.906 g/cm2 There has been a 3.7% decrease in BMD in the lumbar spine. Dissimilar scan types or analysis methods precludes assessment for calculating a significant change. Left Hip Current Total BMD is 0.892 g/kw4W-ihchq is -0.4 Most recent prior Total BMD was 0.903 g/cm2 There has been a 1.2% decrease in BMD in the left hip. Dissimilar scan types or analysis methods precludes assessment for calculating a significant change. Current femoral neck BMD is 0.659 g/fx8F-shqia is -1.7 Left 1/3 radius Total BMD is 0.534 g/ni2P-miuof is -2.7 Bone mineral density in the left 1/3 radius was not measured on the prior examination Procedure Note Provider, MD Amy - 08/20/2020 EXAMINATION: DXA Bone Density Examination (Hip, Radius, and Spine). HISTORY: 61-year-old post menopausal female, screening for osteoporosis. Current Height: 59.5 inches Maximum Height: 60 inches Weight: 195 pounds RISK FACTORS: Alcohol use. COMPARISON(S): January 30, 2013. WORT EXTRACTOR/MODEL: Hapzing SL [id number]. FINDINGS: AP lumbar spine L1-L4 Total BMD is 0.872 g/ja0U-arwrw is -1.6 Most recent prior BMD was 0.906 g/cm2 There has been a 3.7% decrease in BMD in the lumbar spine. Dissimilar scan types or analysis methods precludes assessment for calculating asignificant change. Left Hip Current Total BMD is 0.892 g/lm2T-jqvpj is -0.4 Most recent prior Total BMD was 0.903 g/cm2 There has been a 1.2% decrease in BMD in the left hip. Dissimilar scantypes or analysis methods precludes assessment for calculating a significantchange. Current femoral neck BMD is 0.659 g/lv4X-qrjkb is -1.7 Left 1/3 radius Total BMD is 0.534 g/mm1M-sglrl is -2.7 Bone mineral density in the [...] AB: 02:14 PM 02:14 PM BM [EOD] Beni Li SUPERVISOR CELL MAINTENANCE IMG DXA PROCEDURES Final Res ult from Last 3 Months or Most Recently Relevant to Health Maintenance Insurance [employer] Member Subscriber Plan / Payer (Ef fective 2014-Present) Name:Cori Edmondson Relation to Subscriber:Self Name:Cori Edmondson Payer ID:[id number] (NAIC) Type:MEDICARE RISK OTHER Address: [place] [id number] [facility] Advance Directives For more information, please contact: [phone] * Full Code (Latest Code Status on File) Date Activated Date Inactivated Comments 07/20/2022 9:41 PM 07/21/2022 4:16 PM Care Teams Instrumentation Instructor Relationship Specialty Start Date End Date Naila Person DO PCP - General 06/14/17 Sania Lopez DO Referring Physician General Surgery 03/14/18 Sultan Antwan Rudd MD [address] [place] [address] [address] Tire And Tube Repairer Cardiovascular Disease 11/15/18 Mark Pierre MD [address] [place] [address] [address] Medical Oncologist/Meat Cooler Medical Oncology 03/08/19
--- OUTSIDE RECORDS SUMMARY | 2025-01-31 09:20 | XMS_ITS ---
Author Organization [facility] Address [address] [place] [address] Care Team Providers Care Fixture Designer Name Role Phone Naila Person DO Primary Care Provider [phone] Sania Lopez DO Unavailable [phone] Sultan Antwan Rudd MD Unavailable [phone] Mark Pierre MD Unavailable [phone] Active Problems Problem Noted Date Diagnosed [...] PM CDT): NICM with associated HFrEF s/p SPINE SPECIALIST-D on 02/13/2020 Continue GDMT per her driver engineer Pain in right hand 04/30/2021 Abdominal pain, [...] thresholds. Assessment & Plan (03/21/2020 2:04 PM CALL TAKER): Factor change. Discussed in detail with patient. If makes matters worse come back if not for occasional episodes can change position Biventricular ICD (implantab le cardioverter-defibrillator) in place 02/21/2020 Assessment & Plan (11/24/2022 11:24 AM CDT): SPINE SPECIALIST-D is functioning appropriately as programmed Lead impedances, [...] monitoring quarterly Cardiac resynchronization th erapy defibrillator (SPINE SPECIALIST-D) in place 02/20/2020 Assessment & Plan (06/27/2020 1:32 PM CDT): Check shows normal function. Underlying rhythm sinus left bundle-branch block. No a pacing 90 8% LV paced. Excellent lead function. Battery 12 years. No arrhythmias Assessment & Plan (05/28/2020 6:54 PM CALL TAKER): Inserted 02/13/2020. Assessment & Plan (03/21/2020 2:13 PM CALL TAKER): Normal function. Underlying rhythm sinus with left bundle-branch block. No a pacing 99% V paced. Excellent lead function. LV thresholds 0.5 volts at 0.4 milliseconds. Battery 12 years. No arrhythmias Assessment & Plan (02/20/2020 6:21 PM CALL TAKER): Inserted 02/13/2020. Assessment & Plan (02/20/2020 2:01 PM CALL TAKER): Medtronic implanted February 13, 2020. Good clinical [...] 122/70. Assessment & Plan (05/29/2020 4:39 PM CALL TAKER): Salt restriction. Carvedilol. Lasix. Entresto. Blood pressure 140/80. Assessment & Plan (03/21/2020 2:26 PM CALL TAKER): Blood pressure runs at home systolic 130 diastolic in the 80s or below Assessment & Plan (02/21/2020 3:40 PM CALL TAKER): Blood pressure 144/80. Salt restriction. Continue the current regimen. Assessment & Plan (12/20/2019 4:21 PM CDT): Blood pressure 108/62. Salt restriction. Continue the current regimen. Assessment & Plan (08/16/2019 2:30 PM CDT): Blood pressure 130/80. Continue the current regimen. Salt restriction. Assessment & Plan (05/24/2019 4:32 PM CALL TAKER): Blood pressure 112/70. Salt restriction. Continue the current regimen. Assessment & Plan (03/09/2019 9:08 AM CALL TAKER): Blood pressure 126/80. Salt restriction. Continue the current regimen. Assessment & Plan (02/08/2019 2:27 PM CALL TAKER): Blood pressure 128/74. Salt restriction. Continue the current regimen. Personal history of congestive heart failure 09/2018 Assessment & Plan (09/26/2020 11:47 AM CDT): Stable the treatment.. Salt restriction. Lasix for decongestion. Assessment & Plan (05/28/2020 7:02 PM CALL TAKER): Salt restriction. Blood pressure control. Lasix for decongestion. On 05/07/2020 BUN 19, creatinine 0.72, potassium 4.2, sodium 138. GFR more than 60. Stage 2 kidney disease. Assessment & Plan (02/20/2020 6:25 PM CALL TAKER): Salt restriction. Blood pressure control. Lasix for [...] 142. Assessment & Plan (05/24/2019 10:55 AM CALL TAKER): Salt restriction. Blood pressure control. Lasix for decongestion. The BNP on 02/24/2019 was 186. BUN 16, creatinine 0.9, sodium 142, potassium 3.9. Assessment & Plan (03/08/2019 5:25 PM CALL TAKER): Was hospitalized at [facility] a few months back with congestive heart failure. Salt restriction. Blood pressure control. Lasix for decongestion. The BNP on 02/24/2019 was 186. Potassium 3.9, sodium 142, BUN 16, creatinine 0.9. Assessment & Plan (02/08/2019 2:30 PM CALL TAKER): Stable today. Salt restriction. Lasix for decongestion. Check SMA 7 and BNP level today. Left ventricular systolic dysfunction 11/16/2018 Assessment & Plan (11/24/2022 11:23 AM CDT): NICM with associated HFrEF s/p SPINE SPECIALIST-D Euvolemic on exam Assessment & Plan (09/25/2020 3:46 PM CDT): Biventricular pacemaker. Carvedilol. Entresto. Ejection fraction has improved as described above. Assessment & Plan (06/27/2020 1:26 PM CDT): Likely significantly better with SPINE SPECIALIST. Continue Entresto Assessment & Plan (05/29/2020 4:40 PM CALL TAKER): Worsening ejection fraction. Carvedilol. The lisinopril was changed to the Entresto. Follow up echo Doppler before the next appointment. Assessment & Plan (02/21/2020 3:41 PM CALL TAKER): Worsening ejection fraction. Carvedilol. Lisinopril was changed [...] home. Assessment & Plan (05/24/2019 4:31 PM CALL TAKER): Echo 11/09/2018 showed an ejection fraction 40-50%. Escalating doses of the lisinopril and the carvedilol. Increase the dose of the carvedilol to 12.5 mg p.o. b.i.d.. Return 6 weeks and try to increase the dose of lisinopril at that appointment. Assessment & Plan (03/09/2019 9:09 AM CALL TAKER): Echo 11/09/2018 showed an ejection fraction of 40-50%. Carvedilol. Lisinopril. Will gradually escalate the doses. Increase the Coreg to 6.25 mg p.o. b.i.d. on this visit. Assessment & Plan (02/08/2019 2:29 PM CALL TAKER): Echo 11/09/2018 showed mild left ventricular systolic [...] 12/28/2015. Assessment & Plan (05/28/2020 7:03 PM CALL TAKER): Negative stress test 12/28/2015. Assessment & Plan (02/20/2020 6:25 PM CALL TAKER): Negative stress test 12/28/2015. Assessment & Plan (12/19/2019 5:46 PM CDT): Negative stress test 12/28/2015. Assessment & Plan (08/15/2019 11:33 AM CDT): Negative stress test 12/28/2015. Assessment & Plan (05/24/2019 10:54 AM CALL TAKER): Negative stress test 12/28/2015. Assessment & Plan (03/08/2019 5:21 PM CALL TAKER): Negative and stress test 12/28/2015. Assessment & Plan (02/07/2019 5:18 PM CALL TAKER): Negative Lexiscan stress test 12/28/2015. Assessment & [...] 03/14/2018:Stage Unknown(cTX, cN1(f), cM0, G3, ER: Negative, VA: Negative, HER2: Negative) - Signed by Hever [...] mg - Medtronic interrogated device and turned SPINE SPECIALIST pacing on - Continue home meds Assessment & Plan (09/25/2020 3:47 PM CDT): Asymptomatic PVCs on the EKG. Assessment & Plan (06/27/2020 1:27 PM CDT): [place] very low. No additional treatment needed Assessment & Plan (05/28/2020 7:03 PM CALL TAKER): Asymptomatic PVCs on the EKG. No palpitations. Assessment & Plan (03/21/2020 2:26 PM CALL TAKER): [place] low by check Assessment & Plan (02/20/2020 6:26 PM CALL TAKER): Asymptomatic PVCs on the EKG. No palpitations . Assessment & Plan (12/19/2019 5:46 PM CDT): Asymptomatic PVCs on the EKG. Not significant. Assessment & Plan (08/15/2019 11:31 AM CDT): Asymptomatic PVCs on the EKG. Not significant. Assessment & Plan (05/24/2019 10:54 AM CALL TAKER): Asymptomatic PVCs seen on the EKG. Assessment & Plan (03/08/2019 1:01 PM CALL TAKER): Asymptomatic PVCs seen on the EKG. Assessment & Plan (02/08/2019 2:26 PM CALL TAKER): PVCs on the EKG. Asymptomatic. EKG today [...] Plan (06/27/2020 1:25 PM CDT): Treated with SPINE SPECIALIST Assessment & Plan (05/29/2020 4:40 PM CALL TAKER): Chronic left bundle branch block associated with cardiomyopathy. On 12/06/2019 the echo showed worsening of the ejection fraction less than 30%. Carvedilol. The lisinopril was changed to the Entresto. Underwent Bi V pacemaker insertion 02/13/2020. Repeat the echo Doppler before the next appointment. Assessment & Plan (03/21/2020 2:13 PM CALL TAKER): SPINE SPECIALIST 02/13/2020 Assessment & Plan (02/20/2020 6:21 PM CALL TAKER): Chronic left bundle branch block associated with cardiomyopathy. On 12/06/2019 the echo showed worsening of the left ventricular systolic function ejection fraction less than 30%. Carvedilol. The lisinopril was discontinued in the Entresto was started. Will gradually increase the dose. Underwent Bi V pacemaker insertion 02/13/2020. Assessment & Plan (02/05/2020 11:02 AM CALL TAKER): I spent a total of 30 Face to Face minutes of which more than 50% of the time was spent in counseling and coordination of care. This time included: SPINE SPECIALIST. Pacemakers versus defibrillators. Risk of implant not limited to bleeding infection pneumothorax. She is quite interested in having SPINE SPECIALIST and once a had a protection of [...] Lisinopril. Assessment & Plan (05/24/2019 10:57 AM CALL TAKER): Chronic left bundle branch block. Associated with cardiomyopathy. Ejection fraction by echo on 11/09/2018 was 40-50%. Carvedilol. Lisinopril. Assessment & Plan (03/08/2019 1:03 PM CALL TAKER): Chronic left bundle branch block. Associated with cardiomyopathy. Echo Doppler 11/09/2018 showed an ejection fraction of 40-50%. Carvedilol. Lisinopril. Assessment & Plan (02/08/2019 2:28 PM CALL TAKER): Chronic. The echo Doppler 11/09/2018 showed mild [...] stenosis.. Assessment & Plan (05/28/2020 7:00 PM CALL TAKER): Echo Doppler 12/06/2019 showed mild aortic valve stenosis with a peak gradient 23, mean gradient 12, aortic valve area 1.77 centimeter sq. No AR. Assessment & Plan (02/20/2020 6:24 PM CALL TAKER): Echo Doppler 12/06/2019 showed mild aortic valve [...] stenosis. Assessment & Plan (05/24/2019 10:56 AM CALL TAKER): Echo Doppler 11/09/2018 showed mild aortic valve stenosis. Assessment & Plan (03/08/2019 1:04 PM CALL TAKER): Echo Doppler 11/09/2018 showed mild aortic valve stenosis with no significant change since 06/15/2017 when the peak aortic valve gradient was 24, mean gradient 9, aortic valve area 1.5 centimeter sq. Assessment & Plan (02/07/2019 5:16 PM CALL TAKER): Echo 11/09/2018 continues to show mild aortic [...] 92. Assessment & Plan (05/28/2020 6:56 PM CALL TAKER): Low-fat low-cholesterol diet. Atorvastatin. On 05/07/2020 triglycerides 113, LDL 92. Assessment & Plan (02/20/2020 6:19 PM CALL TAKER): Low-fat low-cholesterol diet. Atorvastatin. On 11/18/2018 the LDL was 93. Assessment & Plan (12/19/2019 5:40 PM CDT): Low-fat low-cholesterol diet. Atorvastatin. On 11/18/2018 the LDL was 93. Assessment & Plan (08/15/2019 11:32 AM CDT): Low-fat low-cholesterol diet. Atorvastatin 20 mg bedtime daily. On 11/18/2018 the LDL was 93. Assessment & Plan (05/24/2019 10:58 AM CALL TAKER): Low-fat low-cholesterol diet. Atorvastatin 20 mg bedtime daily. On 11/18/2018 the LDL was 93. Before that it was 134 . Assessment & Plan (03/08/2019 1:02 PM CALL TAKER): Low-fat low-cholesterol diet. Atorvastatin 20 mg bedtime daily. On 11/18/2018 the LDL was 93. Previously it was 134. Significant improvement. Assessment & Plan (02/07/2019 5:13 PM CALL TAKER): Low-fat low-cholesterol diet. Pravastatin 40 mg bedtime [...] striking against object, initial encounter 05/27/2013 Current Treatment and Therapy Plans No current plan information found. Past Treatment and Therapy Plans No past plan information found. Lifetime Dose Tracking * Chemical Lifetime Dose Automatic Entry Manual Entr y Fluoro Time 15 minutes 0 minutes 15 minutes Air kerma at the reference point (Ka,r) 1,223 mGy 0 mGy 1,223 mGy DLP 4,369 mGycm 4,369 mGycm 0 mGycm DAP 95.818 Gy-cm2 0 Gy-cm2 95.818 Gy-cm2
--- OUTSIDE RECORDS SUMMARY | 2025-01-31 09:20 | XMS_ITS | Clinical Summary ---
Author Organization [facility] Address [address] [place] [address] Care Team Providers Care Flame Hardener Name Role Phone Naila Person DO Primary Care Provider [phone] Allergies Active Allergy Reactions Criticality Noted Date [...] Encounters Date Type Department Care Team Description 12/29/[address] [facility] Oncology and Hematology - [place] [address] [address] [address] Timmy Carrion MD Malignant neoplasm of right breast in female, estrogen receptor negative, unspecified site of breast (CMS/HCC) (Primary Dx) 12/19/2024 External Device Data [facility] ABSTRACTION Provider, Abstract 12/05/2024 External Device Data [facility] ABSTRACTION Provider, Abstract 11/22/2024 External Device Data [facility] ABSTRACTION Provider, Abstract 11/14/2024 External Device Data [facility] ABSTRACTION Provider, Abstract 11/08/2024 External Device Data [facility] ABSTRACTION Provider, Abstract from Last 3 Months Family History Relation [...] on file Legal Sex Female 12:32 PM FITTING ROOM SUPERVISOR Gender Identity Not on file Sexual [...] Height 152.4 cm (5') 03/03/2021 2:21 PM FITTING ROOM SUPERVISOR Body Mass Index 40.04 03/03/2021 2:21 PM FITTING ROOM SUPERVISOR Plan of Treatment Upcoming Encounters Date Type Department Care Team (Late st Contact Info) Description 02/05/2025 11:00 AM FITTING ROOM SUPERVISOR Office Visit [facility] Oncology and Hematology - [place] [address] [address] [facility] [address] [place] [address] Timmy Carrion MD [address] [facility] [address] [place] [address] Health Maintenance Due Date Last Done Comments DTAP/TDAP/TD VACCINES (1 - Tdap) 1972 PNEUMOCOCCAL VACCINE 50+ YEA RS (1 of 2 - PCV) 1972 COLORECTAL SCREENING 1998 Colorectal Cancer Screening 1998 FIT-DNA Q 3 years 1998 FIT/FOBT Q 1 year 1998 Flex Sig/CT Colonography Q 5 years 1998 OSTEOPOROSIS SCREENING 12/11/2021 7, 12/11/2016, 01/30/2013 [place] Preventative Visit/Annual Wellness Visit 04/05/2024 BREAST CANCER SCREENING 04/22/2024 04/22/19 24, 01/30/2019, 01/28/2018, Additional history exists INFLUENZA VACCINE (#1) 2024 12/23/2020 RSV VACCINE (60+ or ) (1 - 1-dose 75+ series) 2028 ZOSTER VACCINE Completed 07/12/2021, 05/12/2021 Procedures Procedure Name Priority Date/Time Associated Diagnosis Comments MAMMO SCREENING UNILATERAL LEFT Routine 04/22/2023 1:17 PM FITTING ROOM SUPERVISOR from Last 3 Months or Most Recently Relevant to Health Maintenance Results * MAMMO SCREENING UNILATERAL LEFT (04/22/2023 1:17 PM FITTING ROOM SUPERVISOR) Anatomical Region Laterality Modality Breast Left Mammography Timmy Carrion MD MAMMO ORDERABLES Final Result from Last 3 Months or Most Recently Relevant to Health Maintenance Insurance [facility] Member Subscriber Plan / Payer ( fective 2020-Present) Name:Cori Edmondson Relation to Subscriber:Self Name:Cori Edmondson Payer ID:[id number] (NAIC) Type:[employer] Address: [place] [id number] [facility] Care Teams Flame Hardener Relationship Specialty Start Date End Date Naila Person DO [address] [place] [id number] PCP - General Internal Medicine 02/07/18
--- OUTSIDE RECORDS SUMMARY | 2025-01-31 09:20 | XMS_ITS | Clinical Summary ---
Author Organization [facility] [employer] Address [address] [place] [address] Care Team Providers Care Door Repairer Bus Name Role Phone Naila Person Primary Care Provider [phone] Source Comments [facility],non-owned Affiliates and Associated Physician Practices is amultiple site organization consisting of ambulatory clinics and hospital sitesin [place], [place], [place] and [place]. This disclosure is being madepursuant to the Care Everywhere program and may not contain all information available regarding this patient. Last updated 17.[facility] [employer] Allergies Active Allergy Reactions Criticality Noted Date Comments Peanut-Derived Anaphylaxis High 01/28/2019 Medications * Be aware that medications may not be up to date on this document. Always verify current medications with the patient. atorvastatin (LIPITOR) 20 MG tablet Take 20 [...] Take 1 tablet by mouth once daily 9 Active lisinopril (PRINIVIL; ZESTRIL) 10 MG tablet Take 1 tablet by mouth once daily 30 tablet 2 9 Active omeprazole (PRILOSEC) 20 MG capsule Take 20 mg by mouth daily before breakfast Active calcium-vitamin D (OS-ELYSE 500 + D) 500-200 mg-unit tablet Take 1 tablet by mouth once daily Active carvedilol (COREG) 3.125 MG tablet Take 1 tablet by mouth 2 times daily with morning and evening meal 60 tablet 2 10/27/201 9 Active guaiFENesin 200 MG/5ML Take 5 mL by mouth every 4 hours as needed 9 Active furosemide (LASIX) 40 MG tablet Take 1 tablet by mouth once daily 30 tablet 2 9 Active Active Problems Problem Noted Date Diagnosed [...] at Not on file Legal Sex Female 6:23 PM HOME THERAPY CLINICIAN Gender Identity Not on file Sexual Orientation [...] 6:11 AM CDT Height 157.5 cm (5' 2) 01/27/2019 9:11 PM CDT Body Mass Index [...] - COLON CA SCREENING 1953 MAMMOGRAM 1955 HEPATITIS C SCREENING 11/06/1971 DTAP/TDAP/TD VACCINES (1 - Tdap) 1972 PNEUMOCOCCAL VACCINE 50+ (1 of 1 - PCV) 11/11/2003 ZOSTER VACCINE (1 of 2) 11/11/2003 Respiratory Syncytial Virus (RSV) Vaccine Pt: or over 60 yrs (1 - Risk 60-74 years 1-dose series) 2013 DEPRESSION SCREENING 04/05/2024 COVID-19 VACCINE (1 - 2023- season) 2024 INFLUENZA VACCINE (#1) 2024 8, 01/20/2018, 01/25/2017, Additional history exists HEPATITIS B VACCINE Aged Out No longe r eligible based on patient's age to complete this topic HIB VACCINE Aged Out No longer eligi ble based on patient's age to complete this topic HPV VACCINE Aged Out No longer eligi ble based on patient's age to complete this topic MENINGOCOCCAL (Group B) VACCINE SHARED DECISION-MAKING Aged Out No longer eligible based on patient's age to complete this topic MENINGOCOCCAL GROUPS A/C/Y/W VACCINE Aged Out No longer eligible based on patient's age to complete this topic Insurance [facility] MEDICARE Advance Directives * Full Code (Latest Code Status on File) Date Activated Date Inactivated Comments 01/27/2019 6:03 AM 01/29/2019 4:47 PM Care Teams Door Repairer Bus Relationship Specialty Start Date End Date Naila Person DO [address] [place] [id number] PCP - General Internal Medicine 01/18/19
[2025-01-31 10:28] LABS: Alanine Aminotransferase 11 U/L (6-35); Albumin Level 4.2 g/dL (3.5-5.1); Alkaline Phosphatase 69 U/L (38-126); Anion Gap 7 mmol/L (4-12); Aspartate Amino Transferase 22 U/L (14-36); Bilirubin,Total 0.3 mg/dL (0.2-1.3); Blood Urea Nitrogen 24 mg/dL (7-17); Calcium 9.5 mg/dL (8.4-10.2); Carbon Dioxide 28 mmol/L (22-30); Chloride 103 mmol/L (98-107); Estimated Glomerular Filt Rate 56; Glucose 109 mg/dL (65-110); Potassium 4.1 mmol/L (3.4-5.0); Sodium 138 mmol/L (137-145); Total Protein 7.2 g/dL (6.3-8.2)
== END 2025-01-31 08:48 | disposition home or self-care (01) ==
LOC: ANHLAB 08:48
PROVIDERS: PCP Internal Medicine; Visit Provider Internal Medicine Hematology & Oncology
DX: C50.911 Malignant neoplasm of unspecified site of right female breast (principal); Z17.1 Estrogen receptor negative status [ER-]
CPT/HCPCS: 36415; 80053; 85025; 86300